=== PATIENT | female | born 1945 | race Caucasian/White ===

== ENCOUNTER 2021-12-17 23:00 | Inpatient (IN) ==
--- NOTE | 2021-12-17 23:13 | Emergency Department Note ---
Impression & Plan Acute respiratory failure with hypoxia, Acute hyponatremia ED Provider Note Name: RHIANNA JAUREGUI Age: 76 Sex: F Arrives Via: Ambulance Informant: Patient (poor historian secondary to acuity), EMS, Records ED Provider: Frankie Horta MD Chief Complaint: Shortness of breath Impression: As per impressions above Medical Decision Makin-year-old female arrives from [facility] for evaluation of acute respiratory distress. Patient unknown to this facility but has a history of hyperlipidemia, diabetes, hypertension, COPD, anxiety, depression, peripheral vascular disease. Patient had a lumbar back surgery 20 days ago in [facility]. She was in their facility for about 10 days dealing with some anemia and hyponatremia issues. She was transferred to [facility] a few days ago. Apparently patient had been doing well without any breathing issues until this evening. She awoke middle night in severe respiratory distress and anxious. EMS noted sats in the low 80s and some mild improvement with CPAP prior to arrival. On arrival patient is having significant respiratory distress on CPAP and switched to BiPAP. She seemed to do well for the next 10 to 15 minutes though became increasingly anxious unclear if just purely anxiety or due to pain. She appeared increasingly encephalopathic and worked up thrashing around the bed. She was given a small dose of IV fentanyl. This initially calmed her but respiratory distress worsened and thus intubation was clearly indicated. She was taken to trauma bay where she was intubated without significant difficulty. By this point labs returning with white count of 16 but Pro-Eh unremarkable. She has hyponatremia with sodium of 124 which is somewhat lower than the 129 she has been discharged from [facility]. Initial VBG while on BiPAP showed some mild acidosis and CO2 elevation. Initial chest x-ray with some diffuse congestion though no overt lobar infiltrates. With the recent surgery and acute respiratory failure CT PE was indicated. She was given Benadryl and Solu-Medrol prior to this given the chart review porting hives to IV contrast. CT PE study reveals no evidence of PE but does reveal bilateral groundglass opacities. [facility] respiratory panel was sent as COVID initially was negative here. These groundglass opacities may be pulmonary edema but will await [facility] as hemodynamically she is now stable on ventilator. With negative Pro-Eh and no fever, we will hold off on antibiotics at this time. I made the critical care team as well as hospitalist aware of the patient and plan for ICU admission. I suspect the primary cause of her respiratory distress must be acute pulmonary edema. There is no clear evidence that she is septic a nd I do not see a clear evidence of ACS at this time either. Prior Medical Record and Triage/Nursing Notes reviewed by Me Additional history obtained from chart, and EPIC records Differentials:Reactive airway disease, pneumonia, pneumothorax, COPD, CHF, infections, cardiac ischemia, pulmonary embolism, musculoskeletal, gastrointestinal, as well as other pathologies. Vital Signs: reviewed and remarkable for hypoxia on room air Interventions: Propofol, succinylcholine, etomidate, fentanyl Labs:Reviewed and remarkable for hyponatremia, leukocytosis, anemia Imagin view chest x-ray mild congestion bilaterally. 1 view chest x-ray postintubation reveals ET tube in place as well as OG tube in place mild increasing congestion. CT PE study as per stat read radiologist reveals diffuse groundglass opacities EKG:Per My Interpretation: Indication SHOB: Sinus Chilo 59 bpm, qtc 500 with LBBB. No Ectopy. No Ischemia. No recent EKG available for comparison Cardiac/Tele Monitoring: Cardiac Monitoring: An Order was placed for continuous cardiac monitoring. The monitor shows a rate of 60 with a normal sinus rhythm. Consults:Dr Elvira Ring Hospitalist. Eron [facility] Plan: Disposition:Hospitalization. Condition: Critical History of Present Illness:76-year-old female arrives for evaluation of shortness of breath. Patient has been at a local rehab facility following back surgery. She awoke this morning with severe difficulty breathing. EMS was contacted and she was found to be breathing in the 80s and sent to the ER for further evaluation. Patient is unable to talk due to being on CPAP however when asked if she having any chest pain she denies any currently. No medications prior to arrival. She nods yes, that she is feeling much improved on the CPAP. Patient has no reported history of DVT or PE. She is not on blood thinners. She denies any calf pain or leg swelling. No falls, trauma, injuries. ROS: Difficult to obtain due to patient being on CPAP and unable to talk right now. Past Medical History:Diabetes, COPD, hypertension, dyslipidemia, GERD, depression/anxiety, peripheral vascular disease, anemia Past Surgical History:Lumbar back surgery Family History:Adopted and unknown Social History:Retired, no smoking history, rare alcohol use, no drug use Home Medications:See Below Allergies:Amoxicillin, IV dye, lisinopril, sunflower seed Vitals:Blood Pressure: 117/75, Pulse 60, RR 19, T 36.7C, O2 100% on BiPAP Physical Exam: GENERAL: Patient is unwell/pale appearing and in moderate distress. Anxious ap pearing, uncomfortable. EYES: No scleral icterus, unremarkable pupils. ENT: Mucous membranes moist, no nasal congestion. NECK: No masses appreciated, nomeningismus, trachea is midline. RESPIRATORY: Diffuse crackles and decreased lung sounds throughout. Significant dyspnea/tachypnea on CPAP. CARDIOVASCULAR: Regular rate and rhythm.No murmurs, rubs, gallops appreciated. GASTROINTESTINAL: Abdomen soft, non-tender, no peritonitis.Bowel sounds positive.No masses appreciated. BACK: No midline tenderness, no CVA tenderness EXTREMITIES: Normal motion all extremities, no cyanosis, no edema. NEUROLOGIC: Awake, anxious, no acute motor or sensory deficits, no focal weakness, cranial nerves grossly intact. SKIN: No rash, no jaundice, no diaphoresis. Pale. PSYCH: Anxious GCS: 15 ED Course: Times/Reassessments: Patient initially improved on BiPAP but shortly thereafter rapidly became more anxious agitated and somewhat encephalopathic. Attempted small dose fentanyl without improvement. Taken to critical care bay where she was intubated without difficulty. Procedures: Endotracheal Intubation Indication: Respiratory Failure The patient was being bagged by respiratory with BVM. Suction, airway equi pment, RSI drugs, respiratory equipment, and appropriate personnel were prepared prior to the initiation of the procedure. A time out was taken. Induction was performed with etomidate and succinylcholine. After observing the clinical benefit of the medications, the airway was easily visualized utilizing a glide scope #3 blade. Initially a size 7.5 ET tube was attempted to be placed however was unable to be put through the cords and this another attempt with a 7.0 tube was made. The 7.0 size ETT tube was placed atraumatically to 21 cm using standard technique. The cuff inflated without signs of malfunction. There were bilateral breath sounds, positive colormetric change, no gastric sounds, a good capnography waveform, and post procedure pulse oximetry was 98%. Post intubation sedation and paralysis was administered using propofol. There were no complications. Critical Care: I have personally spent 45 minutes of critical care time in the direct management of this patient. Acute respiratory failure requiring intubation. This was a life/limb threatening event. This 45 minutes is in excess of all separately billable procedures. Frankie Horta MD Past Med/Surg History Medical History (Updated 12/18/21 @ 07:46 by Kenneth Felix MD) Anemia Anxiety and depression COPD (chronic obstructive pulmonary disease) Diabetes mellitus Diabetic neuropathy Diabetic retinopathy Dyslipidemia GERD (gastroesophageal reflux disease) Hypertension LBBB (left bundle branch block) Lumbar stenosis Paroxysmal atrial tachycardia PVD (peripheral vascular disease) Social History Smoking Status: Never smoker Hx Alcohol Use: Yes Alcohol type: beer Hx Substance Use: No Preferred Language: [place] Current Living Situation: Alone Feels Safe at Home: Yes Allergies Allergies Allergy/AdvReac Type Severity Reaction Status Date / Time amoxicillin Allergy Unknown HANDS Verified 07/19/16 06:36 ITCHING Iodinated Contrast Media Allergy Unknown HIVES Verified 12/17/21 23:50 lisinopril Allergy Unknown COUGH Verified 12/17/21 23:50 SUNFLOWER SEEDS Allergy Unknown TONGUE Uncoded 12/17/21 23:50 SWELLING Home Meds Home Medications Medication Instructions Recorded Confirmed acetaminophen 325 mg tablet 325 mg PO Q4 PRN 12/17/21 12/17/21 albuterol sulfate 90 mcg/actuation 2 puff INHALATION Q6 PRN 12/17/21 12/17/21 aerosol inhaler amiodarone 200 mg tablet 200 mg PO DAILY 12/17/21 12/17/21 baclofen 5 mg tablet 5 mg PO TID 12/17/21 12/17/21 cyanocobalamin (vitamin B-12) 2,000 mcg PO DAILY 12/17/21 12/17/21 1,000 mcg tablet (Vitamin B-12) docusate sodium 100 mg capsule 100 mg PO BID 12/17/21 12/17/21 (Colace) duloxetine 60 mg capsule,delayed 60 mg PO DAILY 12/17/21 12/17/21 release fluticasone furoate 200 1 ea INHALATION DAILY 12/17/21 12/17/21 mcg-vilanterol 25 mcg/dose inhalation powder (Breo Ellipta) gabapentin 800 mg tablet 800 mg PO TID 12/17/21 12/17/21 losartan 50 mg tablet 50 mg PO DAILY 12/17/21 12/17/21 metformin 500 mg tablet 500 mg PO QAM 12/17/21 12/17/21 metoprolol succinate 25 mg 25 mg PO DAILY 12/17/21 12/17/21 tablet,extended release 24 hr nitroglycerin 0.4 mg sublingual 0.4 mg SUBLINGUAL UD PRN 12/17/21 12/17/21 tablet (Nitrostat) oxycodone 10 mg tablet 10 mg PO Q6H PRN 12/17/21 12/17/21 pantoprazole 40 mg tablet,delayed 40 mg PO DAILYBB 12/17/21 12/17/21 release pravastatin 80 mg tablet 80 mg PO HS 12/17/21 12/17/21 Results & Data (ED) Vital Signs Vital Signs - 24 hr 12/18/21 01:30 12/18/21 02:00 Pulse Rate [Finger] 57 L 60 Respiratory Rate 20 20 Blood Pressure [Right Arm] 110/52 L 135/61 Blood Pressure Mean [Right Arm] 71 85 Pulse Oximetry 100 100 Oxygen Delivery Method Mechanical Vent Mechanical Vent End Tidal CO2 (18-54mmHg) 42 Laboratory Data Result diagrams: 12/18/21 09:27 12/18/21 21:18 Lab Results 12/17/21 12/17/21 12/17/21 Range/Units 23:14 23:14 23:14 WBC 16.43 H (4.8-10.8) K/uL RBC 3.24 L (4.2-5.4) M/uL Hgb 9.6 L (12.0-16.0) g/dL Hct 29.0 L (37-47) % MCV 89.5 (80-100) fL MCH 29.6 (25-34) pg MCHC 33.1 (32-36) g/dL RDW Std Deviation 43.8 (36.4-46.3) fL RDW Coeff of Be 13.5 (11.5-14.5) % Plt Count 548 H (130-400) K/uL MPV 9.5 (7.4-10.4) fL Immature Gran % (Auto) 0.9 % Neut % (Auto) 87.5 % Lymph % (Auto) 5.1 % Adams % (Auto) 5.5 % Eos % (Auto) 0.9 % Baso % (Auto) 0.1 % Neut # (Auto) 14.40 H (1.4-6.5) K/uL Lymph # (Auto) 0.84 L (1.2-3.4) K/uL Adams # (Auto) 0.90 H (0.11-0.59) K/uL Eos # (Auto) 0.14 (0-0.5) K/uL Baso # (Auto) 0.01 (0-0.2) K/uL Immature Gran # (Auto) 0.14 H (0.00-0.02) K/uL APTT (21.0-31.0) Seconds PTT Ratio ABG pH (7.35-7.45) ABG pCO2 (35-46) mmHg ABG pO2 (80-95) mmHg ABG HCO3 (19-24) mmol/L ABG O2 Saturation (90-95) % ABG Base Excess (-9-1.8) mEq/L Jimmy Test (Pos) VBG pH (7.36-7.41) VBG pCO2 (38-50) mmHg VBG pO2 mmHg VBG HCO3 mmol/L VBG O2 Saturation % VBG Base Excess mEq/L Oxygen Given Sodium 124 L (136-145) mmol/L Potassium 3.7 (3.5-5.1) mmol/L Chloride 85 L (98-107) mmol/L Carbon Dioxide 31 (21-32) mmol/L Anion Gap 8 (3-11) BUN 12 (6-23) mg/dl Creatinine 0.82 (0.6-1.2) mg/dl Est Cr Clr Drug Dosing Not Reportable Est GFR ( Amer) 81.1 ml/min Est GFR (Non-Af Amer) 70.0 ml/min BUN/Creatinine Ratio 14.6 (10-20) Glucose 154 H (70-99(Fasting)) mg/dl Osmolality (280-300) mOsm/kg Lactate 1.8 (0.4-2.0) mmol/L Calcium 8.7 (8.5-10.1) mg/dl Magnesium 1.7 (1.7-2.4) mg/dl Total Bilirubin 0.4 (0.2-1.0) mg/dl Direct Bilirubin 0.1 (0-0.2) mg/dl AST 23 (13-39) U/L ALT 13 (7-52) U/L Alkaline Phosphatase 68 (34-104) U/L Troponin I High Sens 33.7 H (0-14) pg/ml B-Natriuretic Peptide (0-100) pg/ml Total Protein 6.0 (6.0-8.3) gm/dl Albumin 3.1 L (3.4-5.0) gm/dl Lipase 54 (11-82) U/L Procalcitonin (0-0.5) ng/ml TSH (0.300-4.500) uIu/ml Urine Color Urine Appearance (Clear) Urine pH (4.5-7.5) Ur Specific [place] (1.000-1.030) Urine Protein (Negative) Urine Glucose (UA) (Negative) Urine Ketones (Negative) Urine Blood (Negative) Urine Nitrite (Negative) Urine Bilirubin (Negative) Urine Urobilinogen (Negative) Ur Leukocyte Esterase (Negative) Adenovirus (PCR) (NotDetected) B. pertussis DNA (PCR) (NotDetected) B.parapertussis DNA PCR (NotDetected) C. pneumoniae DNA (PCR) (NotDetected) Coronavirus OC43 (PCR) (NotDetected) Coronavirus HKU1 (PCR) (NotDetected) Coronavirus 229E (PCR) (NotDetected) SARS-CoV-2 (PCR) (NotDetected) Coronavirus NL63 (PCR) (NotDetected) Human Metapneumovir PCR (NotDetected) Influenza Type A (PCR) (NotDetected) Influenza Type B (PCR) (NotDetected) M. pneumoniae (PCR) (NotDetected) Parainfluenza 1 (PCR) (NotDetected) Parainfluenza 2 (PCR) (NotDetected) Parainfluenza 3 (PCR) (NotDetected) Parainfluenza 4 (PCR) (NotDetected) RSV (PCR) (NotDetected) Entero/Rhino (PCR) (NotDetected) SARS-CoV-2, RNA, NAAT (NEGATIVE) Blood Type Antibody Screen 12/17/21 12/17/21 12/17/21 Range/Units 23:14 23:14 23:14 WBC (4.8-10.8) K/uL RBC (4.2-5.4) M/uL Hgb (12.0-16.0) g/dL Hct (37-47) % MCV (80-100) fL MCH (25-34) pg MCHC (32-36) g/dL RDW Std Deviation (36.4-46.3) fL RDW Coeff of Be (11.5-14.5) % Plt Count (130-400) K/uL MPV (7.4-10.4) fL Immature Gran % (Auto) % Neut % (Auto) % Lymph % (Auto) % Adams % (Auto) % Eos % (Auto) % Baso % (Auto) % Neut # (Auto) (1.4-6.5) K/uL Lymph # (Auto) (1.2-3.4) K/uL Adams # (Auto) (0.11-0.59) K/uL Eos # (Auto) (0-0.5) K/uL Baso # (Auto) (0-0.2) K/uL Immature Gran # (Auto) (0.00-0.02) K/uL APTT (21.0-31.0) Seconds PTT Ratio ABG pH (7.35-7.45) ABG pCO2 (35-46) mmHg ABG pO2 (80-95) mmHg ABG HCO3 (19-24) mmol/L ABG O2 Saturation (90-95) % ABG Base Excess (-9-1.8) mEq/L Jimmy Test (Pos) VBG pH (7.36-7.41) VBG pCO2 (38-50) mmHg VBG pO2 mmHg VBG HCO3 mmol/L VBG O2 Saturation % VBG Base Excess mEq/L Oxygen Given Sodium (136-145) mmol/L Potassium (3.5-5.1) mmol/L Chloride (98-107) mmol/L Carbon Dioxide (21-32) mmol/L Anion Gap (3-11) BUN (6-23) mg/dl Creatinine (0.6-1.2) mg/dl Est Cr Clr Drug Dosing Est GFR ( Amer) ml/min Est GFR (Non-Af Amer) ml/min BUN/Creatinine Ratio (10-20) Glucose (70-99(Fasting)) mg/dl Osmolality 260 L (280-300) mOsm/kg Lactate (0.4-2.0) mmol/L Calcium (8.5-10.1) mg/dl Magnesium (1.7-2.4) mg/dl Total Bilirubin (0.2-1.0) mg/dl Direct Bilirubin (0-0.2) mg/dl AST (13-39) U/L ALT (7-52) U/L Alkaline Phosphatase (34-104) U/L Troponin I High Sens (0-14) pg/ml B-Natriuretic Peptide (0-100) pg/ml Total Protein (6.0-8.3) gm/dl Albumin (3.4-5.0) gm/dl Lipase (11-82) U/L Procalcitonin < 0.05 (0-0.5) ng/ml TSH 1.390 (0.300-4.500) uIu/ml Urine Color Urine Appearance (Clear) Urine pH (4.5-7.5) Ur Specific [place] (1.000-1.030) Urine Protein (Negative) Urine Glucose (UA) (Negative) Urine Ketones (Negative) Urine Blood (Negative) Urine Nitrite (Negative) Urine Bilirubin (Negative) Urine Urobilinogen (Negative) Ur Leukocyte Esterase (Negative) Adenovirus (PCR) (NotDetected) B. pertussis DNA (PCR) (NotDetected) B.parapertussis DNA PCR (NotDetected) C. pneumoniae DNA (PCR) (NotDetected) Coronavirus OC43 (PCR) (NotDetected) Coronavirus HKU1 (PCR) (NotDetected) Coronavirus 229E (PCR) (NotDetected) SARS-CoV-2 (PCR) (NotDetected) Coronavirus NL63 (PCR) (NotDetected) Human Metapneumovir PCR (NotDetected) Influenza Type A (PCR) (NotDetected) Influenza Type B (PCR) (NotDetected) M. pneumoniae (PCR) (NotDetected) Parainfluenza 1 (PCR) (NotDetected) Parainfluenza 2 (PCR) (NotDetected) Parainfluenza 3 (PCR) (NotDetected) Parainfluenza 4 (PCR) (NotDetected) RSV (PCR) (NotDetected) Entero/Rhino (PCR) (NotDetected) SARS-CoV-2, RNA, NAAT (NEGATIVE) Blood Type Antibody Screen 12/17/21 12/17/21 12/17/21 Range/Units 23:14 23:19 23:19 WBC (4.8-10.8) K/uL RBC (4.2-5.4) M/uL Hgb (12.0-16.0) g/dL Hct (37-47) % MCV (80-100) fL MCH (25-34) pg MCHC (32-36) g/dL RDW Std Deviation (36.4-46.3) fL RDW Coeff of Be (11.5-14.5) % Plt Count (130-400) K/uL MPV (7.4-10.4) fL Immature Gran % (Auto) % Neut % (Auto) % Lymph % (Auto) % Adams % (Auto) % Eos % (Auto) % Baso % (Auto) % Neut # (Auto) (1.4-6.5) K/uL Lymph # (Auto) (1.2-3.4) K/uL Adams # (Auto) (0.11-0.59) K/uL Eos # (Auto) (0-0.5) K/uL Baso # (Auto) (0-0.2) K/uL Immature Gran # (Auto) (0.00-0.02) K/uL APTT 27.8 (21.0-31.0) Seconds PTT Ratio 1.0 ABG pH (7.35-7.45) ABG pCO2 (35-46) mmHg ABG pO2 (80-95) mmHg ABG HCO3 (19-24) mmol/L ABG O2 Saturation (90-95) % ABG Base Excess (-9-1.8) mEq/L Jimmy Test (Pos) VBG pH (7.36-7.41) VBG pCO2 (38-50) mmHg VBG pO2 mmHg VBG HCO3 mmol/L VBG O2 Saturation % VBG Base Excess mEq/L Oxygen Given Sodium (136-145) mmol/L Potassium (3.5-5.1) mmol/L Chloride (98-107) mmol/L Carbon Dioxide (21-32) mmol/L Anion Gap (3-11) BUN (6-23) mg/dl Creatinine (0.6-1.2) mg/dl Est Cr Clr Drug Dosing Est GFR ( Amer) ml/min Est GFR (Non-Af Amer) ml/min BUN/Creatinine Ratio (10-20) Glucose (70-99(Fasting)) mg/dl Osmolality (280-300) mOsm/kg Lactate (0.4-2.0) mmol/L Calcium (8.5-10.1) mg/dl Magnesium (1.7-2.4) mg/dl Total Bilirubin (0.2-1.0) mg/dl Direct Bilirubin (0-0.2) mg/dl AST (13-39) U/L ALT (7-52) U/L Alkaline Phosphatase (34-104) U/L Troponin I High Sens (0-14) pg/ml B-Natriuretic Peptide 116 H (0-100) pg/ml Total Protein (6.0-8.3) gm/dl Albumin (3.4-5.0) gm/dl Lipase (11-82) U/L Procalcitonin (0-0.5) ng/ml TSH (0.300-4.500) uIu/ml Urine Color Urine Appearance (Clear) Urine pH (4.5-7.5) Ur Specific [place] (1.000-1.030) Urine Protein (Negative) Urine Glucose (UA) (Negative) Urine Ketones (Negative) Urine Blood (Negative) Urine Nitrite (Negative) Urine Bilirubin (Negative) Urine Urobilinogen (Negative) Ur Leukocyte Esterase (Negative) Adenovirus (PCR) (NotDetected) B. pertussis DNA (PCR) (NotDetected) B.parapertussis DNA PCR (NotDetected) C. pneumoniae DNA (PCR) (NotDetected) Coronavirus OC43 (PCR) (NotDetected) Coronavirus HKU1 (PCR) (NotDetected) Coronavirus 229E (PCR) (NotDetected) SARS-CoV-2 (PCR) (NotDetected) Coronavirus NL63 (PCR) (NotDetected) Human Metapneumovir PCR (NotDetected) Influenza Type A (PCR) (NotDetected) Influenza Type B (PCR) (NotDetected) M. pneumoniae (PCR) (NotDetected) Parainfluenza 1 (PCR) (NotDetected) Parainfluenza 2 (PCR) (NotDetected) Parainfluenza 3 (PCR) (NotDetected) Parainfluenza 4 (PCR) (NotDetected) RSV (PCR) (NotDetected) Entero/Rhino (PCR) (NotDetected) SARS-CoV-2, RNA, NAAT (NEGATIVE) Blood Type O Positive Antibody Screen NEGATIVE 12/17/21 12/17/21 12/17/21 Range/Units 23:19 23:35 23:35 WBC (4.8-10.8) K/uL RBC (4.2-5.4) M/uL Hgb (12.0-16.0) g/dL Hct (37-47) % MCV (80-100) fL MCH (25-34) pg MCHC (32-36) g/dL RDW Std Deviation (36.4-46.3) fL RDW Coeff of Be (11.5-14.5) % Plt Count (130-400) K/uL MPV (7.4-10.4) fL Immature Gran % (Auto) % Neut % (Auto) % Lymph % (Auto) % Adams % (Auto) % Eos % (Auto) % Baso % (Auto) % Neut # (Auto) (1.4-6.5) K/uL Lymph # (Auto) (1.2-3.4) K/uL Adams # (Auto) (0.11-0.59) K/uL Eos # (Auto) (0-0.5) K/uL Baso # (Auto) (0-0.2) K/uL Immature Gran # (Auto) (0.00-0.02) K/uL APTT (21.0-31.0) Seconds PTT Ratio ABG pH (7.35-7.45) ABG pCO2 (35-46) mmHg ABG pO2 (80-95) mmHg ABG HCO3 (19-24) mmol/L ABG O2 Saturation (90-95) % ABG Base Excess (-9-1.8) mEq/L Jimmy Test (Pos) VBG pH 7.32 L (7.36-7.41) VBG pCO2 64 H (38-50) mmHg VBG pO2 23 mmHg VBG HCO3 32 mmol/L VBG O2 Saturation < 60.0 % VBG Base Excess 4.8 mEq/L Oxygen Given Sodium (136-145) mmol/L Potassium (3.5-5.1) mmol/L Chloride (98-107) mmol/L Carbon Dioxide (21-32) mmol/L Anion Gap (3-11) BUN (6-23) mg/dl Creatinine (0.6-1.2) mg/dl Est Cr Clr Drug Dosing Est GFR ( Amer) ml/min Est GFR (Non-Af Amer) ml/min BUN/Creatinine Ratio (10-20) Glucose (70-99(Fasting)) mg/dl Osmolality (280-300) mOsm/kg Lactate (0.4-2.0) mmol/L Calcium (8.5-10.1) mg/dl Magnesium (1.7-2.4) mg/dl Total Bilirubin (0.2-1.0) mg/dl Direct Bilirubin (0-0.2) mg/dl AST (13-39) U/L ALT (7-52) U/L Alkaline Phosphatase (34-104) U/L Troponin I High Sens (0-14) pg/ml B-Natriuretic Peptide (0-100) pg/ml Total Protein (6.0-8.3) gm/dl Albumin (3.4-5.0) gm/dl Lipase (11-82) U/L Procalcitonin (0-0.5) ng/ml TSH (0.300-4.500) uIu/ml Urine Color Yellow Urine Appearance Clear (Clear) Urine pH 5.5 (4.5-7.5) Ur Specific [place] 1.020 (1.000-1.030) Urine Protein Negative (Negative) Urine Glucose (UA) Negative (Negative) Urine Ketones Negative (Negative) Urine Blood 2+ H (Negative) Urine Nitrite Negative (Negative) Urine Bilirubin Negative (Negative) Urine Urobilinogen Negative (Negative) Ur Leukocyte Esterase Negative (Negative) Adenovirus (PCR) (NotDetected) B. pertussis DNA (PCR) (NotDetected) B.parapertussis DNA PCR (NotDetected) C. pneumoniae DNA (PCR) (NotDetected) Coronavirus OC43 (PCR) (NotDetected) Coronavirus HKU1 (PCR) (NotDetected) Coronavirus 229E (PCR) (NotDetected) SARS-CoV-2 (PCR) (NotDetected) Coronavirus NL63 (PCR) (NotDetected) Human Metapneumovir PCR (NotDetected) Influenza Type A (PCR) (NotDetected) Influenza Type B (PCR) (NotDetected) M. pneumoniae (PCR) (NotDetected) Parainfluenza 1 (PCR) (NotDetected) Parainfluenza 2 (PCR) (NotDetected) Parainfluenza 3 (PCR) (NotDetected) Parainfluenza 4 (PCR) (NotDetected) RSV (PCR) (NotDetected) Entero/Rhino (PCR) (NotDetected) SARS-CoV-2, RNA, NAAT NEGATIVE (NEGATIVE) Blood Type Antibody Screen 12/18/21 12/18/21 Range/Units 01:10 01:55 WBC (4.8-10.8) K/uL RBC (4.2-5.4) M/uL Hgb (12.0-16.0) g/dL Hct (37-47) % MCV (80-100) fL MCH (25-34) pg MCHC (32-36) g/dL RDW Std Deviation (36.4-46.3) fL RDW Coeff of Be (11.5-14.5) % Plt Count (130-400) K/uL MPV (7.4-10.4) fL Immature Gran % (Auto) % Neut % (Auto) % Lymph % (Auto) % Adams % (Auto) % Eos % (Auto) % Baso % (Auto) % Neut # (Auto) (1.4-6.5) K/uL Lymph # (Auto) (1.2-3.4) K/uL Adams # (Auto) (0.11-0.59) K/uL Eos # (Auto) (0-0.5) K/uL Baso # (Auto) (0-0.2) K/uL Immature Gran # (Auto) (0.00-0.02) K/uL APTT (21.0-31.0) Seconds PTT Ratio ABG pH 7.36 (7.35-7.45) ABG pCO2 50 H (35-46) mmHg ABG pO2 163 H (80-95) mmHg ABG HCO3 27 H (19-24) mmol/L ABG O2 Saturation 99.2 H (90-95) % ABG Base Excess 1.2 (-9-1.8) mEq/L Jimmy Test Pos (Pos) VBG pH (7.36-7.41) VBG pCO2 (38-50) mmHg VBG pO2 mmHg VBG HCO3 mmol/L VBG O2 Saturation % VBG Base Excess mEq/L Oxygen Given 60% Sodium (136-145) mmol/L Potassium (3.5-5.1) mmol/L Chloride (98-107) mmol/L Carbon Dioxide (21-32) mmol/L Anion Gap (3-11) BUN (6-23) mg/dl Creatinine (0.6-1.2) mg/dl Est Cr Clr Drug Dosing Est GFR ( Amer) ml/min Est GFR (Non-Af Amer) ml/min BUN/Creatinine Ratio (10-20) Glucose (70-99(Fasting)) mg/dl Osmolality (280-300) mOsm/kg Lactate (0.4-2.0) mmol/L Calcium (8.5-10.1) mg/dl Magnesium (1.7-2.4) mg/dl Total Bilirubin (0.2-1.0) mg/dl Direct Bilirubin (0-0.2) mg/dl AST (13-39) U/L ALT (7-52) U/L Alkaline Phosphatase (34-104) U/L Troponin I High Sens (0-14) pg/ml B-Natriuretic Peptide (0-100) pg/ml Total Protein (6.0-8.3) gm/dl Albumin (3.4-5.0) gm/dl Lipase (11-82) U/L Procalcitonin (0-0.5) ng/ml TSH (0.300-4.500) uIu/ml Urine Color Urine Appearance (Clear) Urine pH (4.5-7.5) Ur Specific [place] (1.000-1.030) Urine Protein (Negative) Urine Glucose (UA) (Negative) Urine Ketones (Negative) Urine Blood (Negative) Urine Nitrite (Negative) Urine Bilirubin (Negative) Urine Urobilinogen (Negative) Ur Leukocyte Esterase (Negative) Adenovirus (PCR) Not Detected (NotDetected) B. pertussis DNA (PCR) Not Detected (NotDetected) B.parapertussis DNA PCR Not Detected (NotDetected) C. pneumoniae DNA (PCR) Not Detected (NotDetected) Coronavirus OC43 (PCR) Not Detected (NotDetected) Coronavirus HKU1 (PCR) Not Detected (NotDetected) Coronavirus 229E (PCR) Not Detected (NotDetected) SARS-CoV-2 (PCR) Not Detected (NotDetected) Coronavirus NL63 (PCR) Not Detected (NotDetected) Human Metapneumovir PCR Not Detected (NotDetected) Influenza Type A (PCR) Not Detected (NotDetected) Influenza Type B (PCR) Not Detected (NotDetected) M. pneumoniae (PCR) Not Detected (NotDetected) Parainfluenza 1 (PCR) Not Detected (NotDetected) Parainfluenza 2 (PCR) Not Detected (NotDetected) Parainfluenza 3 (PCR) Not Detected (NotDetected) Parainfluenza 4 (PCR) Not Detected (NotDetected) RSV (PCR) Not Detected (NotDetected) Entero/Rhino (PCR) Not Detected (NotDetected) SARS-CoV-2, RNA, NAAT (NEGATIVE) Blood Type Antibody Screen Administered Medications Albuterol (Albut/Ipratrop 3mg/0.5mg Neb 3 Ml Vial) 3 ml NEB QIDR [facility]; Protocol Stop: 01/17/22 06:59 Last Admin: 12/18/21 11:54 Dose: Not Given Documented by: [id number] Admin: 12/18/21 07:55 Dose: 3 ml Documented by: [id number] Enoxaparin Sodium (Enoxaparin Inj 40 Mg/0.4 Ml Syr) [facility] Stop: 01/17/22 13:59 Last Admin: 12/18/21 14:38 Dose: 40 mg Documented by: [id number] Doxycycline Hyclate 100 mg/ (Dextrose) 110 mls @ 50 mls/hr IV Q12H [facility] Stop: 12/25/21 13:59 Last Infusion: 12/18/21 16:51 Dose: 0 mls/hr Documented by: [id number] Admin: 12/18/21 14:39 Dose: 50 mls/hr Documented by: [id number] Acetaminophen (Ofirmev) 1,000 mg in 100 mls @ 400 mls/hr IV Q8H PRN; Protocol PRN Reason: pain or fever Stop: 12/21/21 04:29 Last Infusion: 12/18/21 14:54 Dose: 0 mls/hr Documented by: [id number] Admin: 12/18/21 14:39 Dose: 400 mls/hr Documented by: [id number] Infusion: 12/18/21 08:48 Dose: 0 mls/hr Documented by: [id number] Admin: 12/18/21 08:33 Dose: 400 mls/hr Documented by: [id number] Cefepime HCl 2,000 mg/ Syringe 20 mls @ 5 mls/min IV Q12H [facility]; Protocol Stop: 12/25/21 15:59 Last Admin: 12/18/21 16:22 Dose: 5 mls/min Documented by: [id number] Insulin Aspart (Insulin Aspart Per Unit) 0 units SC ACHS [facility] Stop: 01/17/22 20:59 Last Admin: 12/18/21 20:59 Dose: Not Given Documented by: [id number] Admin: 12/18/21 17:18 Dose: 2 units Documented by: [id number] Cosigned by: [id number] Metoprolol Tartrate (Metoprolol Tartrate 25 Mg Tab) 25 mg PO BID [facility] Stop: 01/17/22 20:59 Last Admin: 12/18/21 20:42 Dose: 25 mg Documented by: [id number] Oxycodone HCl (Oxycodone Hcl Ir 5 Mg Tab (Immediate Release)) 5 mg PO Q6H PRN PRN Reason: Pain Stop: 01/01/22 20:43 Last Admin: 12/18/21 21:17 Dose: 5 mg Documented by: [id number] Pravastatin Sodium (Pravastatin Sod 40 Mg Tab) 80 mg NG HS [facility] Stop: 01/17/22 20:59 Last Admin: 12/18/21 20:42 Dose: 80 mg Documented by: [id number] Discontinued Medications Albuterol (Albut/Ipratrop 3mg/0.5mg Neb 3 Ml Vial) 3 ml NEB NOW STA; Protocol Stop: 12/18/21 02:21 Last Admin: 12/18/21 02:33 Dose: 3 ml Documented by: [id number] Amiodarone HCl (Amiodarone 200 Mg Tab) 200 mg PO DAILY [facility] Stop: 01/17/22 08:59 Last Admin: 12/18/21 08:17 Dose: 200 mg Documented by: [id number] Diphenhydramine HCl (Diphenhydramine 50 Mg/Ml Vial) 50 mg IV NOW STA Stop: 12/18/21 00:11 Last Admin: 12/18/21 00:34 Dose: 50 mg Documented by: [id number] Etomidate (Etomidate 2 Mg/Ml 20 Ml Vial) 20 mg IV ONCE ONE Stop: 12/18/21 00:18 Last Admin: 12/18/21 00:06 Dose: 20 mg Documented by: [id number] Fentanyl Citrate (Fentanyl Citrate 100 Mcg/2 Ml Vial) 50 mcg IV NOW STA Stop: 12/17/21 23:39 Last Admin: 12/17/21 23:49 Dose: 50 mcg Documented by: [id number] Furosemide (Furosemide 40 Mg/4 Ml Vial) 40 mg IV ONE ONE Stop: 12/18/21 04:33 Last Admin: 12/18/21 05:36 Dose: 40 mg Documented by: [id number] Propofol (Diprivan) 1,000 mg in 100 mls @ 13.392 mls/hr IV .Q7H29M [facility]; Protocol Stop: 12/21/21 00:14 Last Titration: 12/18/21 12:50 Dose: 0 mcg/kg/min, 0 mls/hr Documented by: [id number] Titration: 12/18/21 07:08 Dose: 30 mcg/kg/min, 13.4 mls/hr Documented by: [id number] Cosigned by: [id number] Titration: 12/18/21 05:00 Dose: 30 mcg/kg/min, 13.4 mls/hr Documented by: [id number] Titration: 12/18/21 03:40 Dose: 25 mcg/kg/min, 11.2 mls/hr Documented by: [id number] Titration: 12/18/21 01:33 Dose: 20 mcg/kg/min, 8.9 mls/hr Documented by: [id number] Titration: 12/18/21 01:20 Dose: 25 mcg/kg/min, 11.2 mls/hr Documented by: [id number] Admin: 12/18/21 00:28 Dose: 30 mcg/kg/min, 13.4 mls/hr Documented by: [id number] Cosigned by: [id number] Titration: 12/18/21 00:28 Dose: 25 mcg/kg/min, 11.2 mls/hr Documented by: [id number] Cosigned by: [id number] Admin: 12/18/21 00:25 Dose: 25 mcg/kg/min, 11.2 mls/hr Documented by: [id number] Cosigned by: [id number] Titration: 12/18/21 00:25 Dose: 20 mcg/kg/min, 8.9 mls/hr Documented by: [id number] Cosigned by: [id number] Admin: 12/18/21 00:22 Dose: 20 mcg/kg/min, 8.9 mls/hr Documented by: [id number] Cosigned by: [id number] Doxycycline Hyclate 100 mg/ (Dextrose) 110 mls @ 50 mls/hr IV NOW STA Stop: 12/18/21 04:29 Last Infusion: 12/18/21 06:50 Dose: 0 mls/hr Documented by: [id number] Admin: 12/18/21 04:15 Dose: 50 mls/hr Documented by: [id number] Methylprednisolone 40 mg/ (Syringe) 0.64 mls @ 1.5 mls/min IV NOW STA Stop: 12/18/21 02:16 Last Admin: 12/18/21 07:30 Dose: Not Given Documented by: [id number] Magnesium Sulfate/Dextrose (Magnesium Sulfate / D5w) 1 gm in 100 mls @ 50 m ls/hr IV Q2H [facility] Stop: 12/18/21 06:29 Last Infusion: 12/18/21 07:37 Dose: 0 mls/hr Documented by: [id number] Admin: 12/18/21 05:37 Dose: 50 mls/hr Documented by: [id number] Infusion: 12/18/21 05:37 Dose: 50 mls/hr Documented by: [id number] Admin: 12/18/21 04:05 Dose: 50 mls/hr Documented by: [id number] Sodium Chloride (Nss) 500 mls @ 50 mls/hr IV .Q10H ONE Stop: 12/18/21 12:27 Last Admin: 12/18/21 07:30 Dose: Not Given Documented by: [id number] Pantoprazole Sodium 40 mg/ (Syringe) 10 mls @ 5 mls/min IV DAILY@1100 [facility] Stop: 01/17/22 10:59 Last Admin: 12/18/21 10:52 Dose: 5 mls/min Documented by: [id number] Cefepime HCl 2,000 mg/ Syringe 20 mls @ 5 mls/min IV Q8H [facility]; Protocol Stop: 12/25/21 03:59 Last Admin: 12/18/21 04:06 Dose: 5 mls/min Documented by: [id number] Sodium Chloride (Hypertonic Saline 3%) 500 mls @ 50 mls/hr IV .Q10H [facility]; Protocol Stop: 12/20/21 04:44 Last Infusion: 12/18/21 14:00 Dose: 0 mls/hr Documented by: [id number] Cosigned by: [id number] Admin: 12/18/21 05:36 Dose: 50 mls/hr Documented by: [id number] Cosigned by: [id number] Magnesium Sulfate/Dextrose (Magnesium Sulfate / D5w) 1 gm in 100 mls @ 50 mls/hr IV Q2H [facility] Stop: 12/18/21 15:29 Last Infusion: 12/18/21 16:37 Dose: 0 mls/hr Documented by: [id number] Admin: 12/18/21 14:37 Dose: 50 mls/hr Documented by: [id number] Infusion: 12/18/21 13:36 Dose: 50 mls/hr Documented by: [id number] Admin: 12/18/21 11:36 Dose: 50 mls/hr Documented by: [id number] Insulin Aspart (Insulin Aspart Per Unit) 0 units SC ACHS [facility] Stop: 01/17/22 03:28 Last Admin: 12/18/21 08:41 Dose: Not Given Documented by: [id number] Admin: 12/18/21 04:24 Dose: 2 units Documented by: [id number] Cosigned by: [id number] Insulin Aspart (Insulin Aspart Per Unit) 0 units SC Q6 [facility] Stop: 01/17/22 11:59 Last Admin: 12/18/21 11:52 Dose: 3 units Documented by: [id number] Cosigned by: [id number] Insulin Aspart (Insulin Aspart Per Unit) Confirm Administered Dose 1 units .ROUTE .STK-MED ONE Stop: 12/18/21 17:18 Last Admin: 12/18/21 17:21 Dose: Not Given Documented by: [id number] Insulin Aspart (Insulin Aspart Per Unit) 0 units SC NOW ONE Stop: 12/18/21 17:31 Last Admin: 12/18/21 17:38 Dose: Not Given Documented by: [id number] Insulin Glargine (Insulin Glargine Solostar 100 Units/Ml 3 Ml Pen) 5 units SC NOW STA Stop: 12/18/21 02:27 Last Admin: 12/18/21 04:25 Dose: 5 units Documented by: [id number] Cosigned by: [id number] Ioversol (Optiray 320 125ml) 120 ml IV ONCE ONE Stop: 12/18/21 00:55 Last Admin: 12/18/21 00:52 Dose: 120 ml Documented by: [id number] Methylprednisolone (Methylprednisolone 125 Mg/2 Ml Vial) 125 mg IV NOW STA Stop: 12/18/21 00:11 Last Admin: 12/18/21 00:34 Dose: 125 mg Documented by: [id number] Metoprolol Tartrate (Metoprolol Tartrate 1 Mg/Ml Vial) 2.5 mg IV Q6 [facility] Stop: 01/17/22 05:59 Last Admin: 12/18/21 17:14 Dose: Not Given Documented by: [id number] Admin: 12/18/21 11:36 Dose: Not Given Documented by: [id number] Admin: 12/18/21 06:38 Dose: Not Given Documented by: [id number] Miscellaneous (Rapid Sequence Induction Bag) Confirm Administered Dose 1 ea .ROUTE .STK-MED ONE Stop: 12/18/21 00:00 Last Admin: 12/18/21 00:06 Dose: 1 ea Documented by: [id number] Miscellaneous (Stat Iv Infusion Titration Per Protocol) 1 ea N/A NOW Stop: 12/18/21 00:11 Last Admin: 12/18/21 01:01 Dose: Not Given Documented by: [id number] Potassium Chloride (Potassium Chloride 20 Meq/15 Ml Udc) 40 meq PO NOW STA Stop: 12/18/21 11:28 Last Admin: 12/18/21 11:35 Dose: 40 meq Documented by: [id number] Propofol (Propofol Bolus From Bag) 20 mg IV Q5M PRN PRN Reason: Sedation Stop: 12/21/21 00:09 Last Admin: 12/18/21 06:14 Dose: 20 mg Documented by: [id number] Cosigned by: [id number] Succinylcholine Chloride (Succinylcholine Chloride 20 Mg/Ml 10 Ml Vial) 150 mg IV ONCE ONE Stop: 12/18/21 00:18 Last Admin: 12/18/21 00:07 Dose: 150 mg Documented by: [id number] Discharge Plan Visit Data Chief Complaint: Shortness of Breath/Dyspnea ED Provider: Frankie Horta Discharge Problem: Acute respiratory failure with hypoxia, Acute hyponatremia Patient Disposition: Admitted As Inpatient Discharge Instructions Interventions: ED Discharge Assessment Last Done: 12/18/21 03:00
[2021-12-17 23:35] LABS: Hemoglobin 9.6 g/dL (12.0-16.0); Mean Corpuscular Hemoglobin 29.6 pg (25-34); Mean Corpuscular Hgb Conc 33.1 g/dL (32-36); Mean Corpuscular Volume 89.5 fL (80-100); Mean Platelet Volume 9.5 fL (7.4-10.4); Platelet Count 548 K/uL (130-400); RDW Coefficient of Variation 13.5 % (11.5-14.5); RDW Standard Deviation 43.8 fL (36.4-46.3); Red Blood Count 3.24 M/uL (4.2-5.4); White Blood Count 16.43 K/uL (4.8-10.8)
[2021-12-17 23:35] LABS: Base Excess VBG 4.8 mEq/L; HCO3 VBG 32 mmol/L; PCO2 VBG 64 mmHg (38-50); PO2 VBG 23 mmHg; pH VBG 7.32 (7.36-7.41)
[2021-12-17 23:37] LABS: Oxygen Saturation VBG < 60.0 %
[2021-12-17] MEDS ORDERED: fentaNYL citrate 100 MCG/2 ML VIAL IV STA (23:38)
[2021-12-17 23:51] LABS: Appearance Urine Clear (Clear); Bilirubin Urine Negative (Negative); Blood Urine 2+ (Negative); Color Urine Yellow; Glucose Urine UA Negative (Negative); Ketones Urine Negative (Negative); Leukocyte Esterase Urine Negative (Negative); Nitrite Urine Negative (Negative); Protein Urine Negative (Negative); Urobilinogen Urine Negative (Negative); pH Urine 5.5 (4.5-7.5)
[2021-12-17 23:54] LABS: Basophils # (auto) 0.01 K/uL (0-0.2); Basophils % (auto) 0.1 %; Eosinophils # (auto) 0.14 K/uL (0-0.5); Eosinophils % (auto) 0.9 %; Immature Granulocytes # (auto) 0.14 K/uL (0.00-0.02); Immature Granulocytes % (auto) 0.9 %; Lymphocytes # (auto) 0.84 K/uL (1.2-3.4); Lymphocytes % (auto) 5.1 %; Monocytes % (auto) 5.5 %; Neutrophils % (auto) 87.5 %
[2021-12-17] MEDS ORDERED: RAPID SEQUENCE INDUCTION BAG ONE (23:59)
[2021-12-18 00:02] LABS: Troponin I High Sensitivity 33.7 pg/ml (0-14)
[2021-12-18] MEDS ORDERED: PROPOFOL BOLUS FROM BAG IV PRN (00:10)
[2021-12-18] MEDS ORDERED: STAT IV Infusion **Titration per Protocol STA (00:10)
[2021-12-18] MEDS ORDERED: diphenhydrAMINE 50 MG/ML VIAL IV STA (00:10)
[2021-12-18] MEDS ORDERED: methylPREDNISolone 125 MG/2 ML VIAL IV STA (00:10)
[2021-12-18] MEDS ORDERED: ETOMIDATE 2 MG/ML 20 ML VIAL IV ONE ×2 (00:17→17:55)
[2021-12-18] MEDS ORDERED: SUCCINYLCHOLINE CHLORIDE 20 MG/ML 10 ML VIAL IV ONE ×2 (00:17→17:55)
[2021-12-18] MEDS: propofoL 1,000 MG/100 ML VIAL IV SCH ×3 (00:22→00:28)
[2021-12-18 00:23] LABS: Alanine Aminotransferase 13 U/L (7-52); Albumin Level 3.1 gm/dl (3.4-5.0); Alkaline Phosphatase 68 U/L (34-104); Anion Gap 8 (3-11); Aspartate Aminotransferase 23 U/L (13-39); BUN Creatinine Ratio 14.6 (10-20); Bilirubin Direct 0.1 mg/dl (0-0.2); Bilirubin,Total 0.4 mg/dl (0.2-1.0); Blood Urea Nitrogen 12 mg/dl (6-23); Calcium 8.7 mg/dl (8.5-10.1); Carbon Dioxide 31 mmol/L (21-32); Chloride 85 mmol/L (98-107); Est GFR (African American) 81.1 ml/min; Glucose 154 mg/dl (70-99(Fasting)); Lipase 54 U/L (11-82); Magnesium 1.7 mg/dl (1.7-2.4); Potassium 3.7 mmol/L (3.5-5.1); Sodium 124 mmol/L (136-145)
[2021-12-18] MEDS ORDERED: OPTIRAY 320 125ml IV ONE (00:54)
[2021-12-18 01:42] LABS: Partial Thromboplastin Time 27.8 Seconds (21.0-31.0)
--- NOTE | 2021-12-18 01:52 | History & Physical Report ---
Date of Service December 18, 2021 Assessment & Plan (1) Acute hypoxemic respiratory failure: Plan: Possible asthma/COPD exacerbation Atypical pneumonia on initial CT read New LBBB with troponin elevation hx PSVT, patient NSR hx PVD moderate aortic stenosis hypertension, elevated secondary to illness hyperlipidemia on statin Rx DM2 on oral medications, well-controlled as of recent hemoglobin A1c of 6.3 last November 25 2 Acute on chronic hyponatremia Recent back surgery Postop anemia ICU Vent management Steroids, neb RTC for presumptive asthma/COPD exacerbation CS, Doxycycline for possible apical pneumonia Trend troponin TTE for new left bundle branch block May need cardiology evaluation Careful correction of sodium, hyponatremia work-up Basal insulin adjusted for n.p.o. status, ISS BG goal 1 40-1 80 DVT prophylaxis per Lovenox subcu Full code Attempted to contact listed printed circuit boards contact printer Miss Ermelinda Moser ([phone]) over the phone. No answer. Left message for call back. Total critical care time was 50 minutes. Text document was generated using [employer] voice recognition software. It may contain grammatical or spelling errors. Kindly contact undersigned for clarification of any documentation item in question. History of Present Illness Chief Complaint: Respiratory distress Primary Care Provider: Dr. Chávez History obtained from ER provider and records. Unable to obtain history from patient secondary to intubated state. Medical history significant for PSVT, PVD, moderate aortic stenosis (TTE 2019 ), hypertension, hyperlipidemia, DM2 on oral medications, chronic hyponatremia, GERD, anxiety/mood disorder, RLS, lumbar radiculopathy status post recent surgery. Last confinement [facility] [address] under Orthopedics spine service from December 07 to 2021 for lumbar decompression surgery for lumbar radiculopathy. Patient subsequently discharged to [facility] facility. As per records, patient woke up in the middle of the night at rehab facility with severe respiratory distress. O2 sats noted to be 80s. Patient placed on CPAP. Later switched to BiPAP at the ER. Patient intubated at the ER for worsening respiratory distress and agitation. Medical History as above Surgical History : Lumbar decompression surgery, breast lesion excision, carpal tunnel surgery, laser trabeculoplasty, cataract surgery, BTL, cholecystectomy, tonsillectomy/adenoidectomy, sliding hernia repair Family History : Depression Personal/Social history : Non-smoker, occasional EtOH intake, retired [employer] employee Allergies Allergy/AdvReac Type Severity Reaction Status Date / Time amoxicillin Allergy Unknown HANDS Verified 07/19/16 06:36 ITCHING Iodinated Contrast Media Allergy Unknown HIVES Verified 12/17/21 23:50 lisinopril Allergy Unknown COUGH Verified 12/17/21 23:50 SUNFLOWER SEEDS Allergy Unknown TONGUE Uncoded 12/17/21 23:50 SWELLING Home Medications Medication Instructions Recorded Confirmed Type acetaminophen 325 mg tablet 325 mg PO Q4 PRN 12/17/21 12/17/21 History albuterol sulfate 90 mcg/actuation 2 puff INHALATION Q6 PRN 12/17/21 12/17/21 History aerosol inhaler amiodarone 200 mg tablet 200 mg PO DAILY 12/17/21 12/17/21 History baclofen 5 mg tablet 5 mg PO TID 12/17/21 12/17/21 History cyanocobalamin (vitamin B-12) 2,000 mcg PO DAILY 12/17/21 12/17/21 History 1,000 mcg tablet (Vitamin B-12) docusate sodium 100 mg capsule 100 mg PO BID 12/17/21 12/17/21 History (Colace) duloxetine 60 mg capsule,delayed 60 mg PO DAILY 12/17/21 12/17/21 History release fluticasone furoate 200 1 ea INHALATION DAILY 12/17/21 12/17/21 History mcg-vilanterol 25 mcg/dose inhalation powder (Breo Ellipta) gabapentin 800 mg tablet 800 mg PO TID 12/17/21 12/17/21 History losartan 50 mg tablet 50 mg PO DAILY 12/17/21 12/17/21 History metformin 500 mg tablet 500 mg PO QAM 12/17/21 12/17/21 History metoprolol succinate 25 mg 25 mg PO DAILY 12/17/21 12/17/21 History tablet,extended release 24 hr nitroglycerin 0.4 mg sublingual 0.4 mg SUBLINGUAL UD PRN 12/17/21 12/17/21 History tablet (Nitrostat) oxycodone 10 mg tablet 10 mg PO Q6H PRN 12/17/21 12/17/21 History pantoprazole 40 mg tablet,delayed 40 mg PO DAILYBB 12/17/21 12/17/21 History release pravastatin 80 mg tablet 80 mg PO HS 12/17/21 12/17/21 History Past Med/Surg History Medical History (Updated 12/18/21 @ 07:46 by Kenneth Felix MD) Anemia Anxiety and depression COPD (chronic obstructive pulmonary disease) Diabetes mellitus Diabetic neuropathy Diabetic retinopathy Dyslipidemia GERD (gastroesophageal reflux disease) Hypertension LBBB (left bundle branch block) Lumbar stenosis Paroxysmal atrial tachycardia PVD (peripheral vascular disease) Social History Smoking Status: Never smoker Hx Alcohol Use: Yes Alcohol type: beer Hx Substance Use: No Preferred Language: Turkmen Current Living Situation: Alone Feels Safe at Home: Yes Review of Systems Review of Systems: Could not be reliably obtained secondary to intubated state Physical Exam Physical Exam: GENERAL: Sedated, intubated, obese, no respiratory distress SKIN: Pallor, warm HEENT: Pale palpebral conjunctivae, no ptosis, dry buccal mucosa, ET in place NECK : Supple, short neck, no tenderness CHEST : Decreased breath sounds, scattered rhonchi, no tenderness HEART : Bradycardic, no obvious murmurs ABDOMEN: Some distention, nontender EXTREMITIES : Minimal LE swelling, no LE tenderness, no other conspicuous deformities noted NEUROLOGIC : Sedated , no facial asymmetry, gait and stance not assessed Results & Data Results & Data ([facility]) Vital Signs (Past 12 Hours) Vital Signs Temp Pulse Pulse Resp BP BP Pulse Ox 12/18/21 01:30 57 L 20 110/52 L 100 12/18/21 01:00 70 18 167/79 H 100 12/18/21 00:30 71 20 196/79 H 99 12/18/21 00:16 18 100 12/18/21 00:10 100 12/18/21 00:00 70 22 100 12/17/21 23:39 100 12/17/21 23:15 60 19 100 12/17/21 23:10 36.7 C 62 28 H 117/75 100 Laboratory Results Laboratory Results WBC 16.43 K/uL (4.8-10.8) H 12/17/21 23:14 RBC 3.24 M/uL (4.2-5.4) L 12/17/21 23:14 Hgb 9.6 g/dL (12.0-16.0) L 12/17/21 23:14 Hct 29.0 % (37-47) L 12/17/21 23:14 MCV 89.5 fL (80-100) 12/17/21 23:14 MCH 29.6 pg (25-34) 12/17/21 23:14 MCHC 33.1 g/dL (32-36) 12/17/21 23:14 RDW Std Deviation 43.8 fL (36.4-46.3) 12/17/21 23:14 RDW Coeff of Be 13.5 % (11.5-14.5) 12/17/21 23:14 Plt Count 548 K/uL (130-400) H 12/17/21 23:14 MPV 9.5 fL (7.4-10.4) 12/17/21 23:14 Immature Gran % (Auto) 0.9 % 12/17/21 23:14 Neut % (Auto) 87.5 % 12/17/21 23:14 Lymph % (Auto) 5.1 % 12/17/21 23:14 [place] % (Auto) 5.5 % 12/17/21 23:14 Eos % (Auto) 0.9 % 12/17/21 23:14 Baso % (Auto) 0.1 % 12/17/21 23:14 Neut # (Auto) 14.40 K/uL (1.4-6.5) H 12/17/21 23:14 Lymph # (Auto) 0.84 K/uL (1.2-3.4) L 12/17/21 23:14 [place] # (Auto) 0.90 K/uL (0.11-0.59) H 12/17/21 23:14 Eos # (Auto) 0.14 K/uL (0-0.5) 12/17/21 23:14 Baso # (Auto) 0.01 K/uL (0-0.2) 12/17/21 23:14 Immature Gran # (Auto) 0.14 K/uL (0.00-0.02) H 12/17/21 23:14 APTT 27.8 Seconds (21.0-31.0) 12/17/21 23:14 PTT Ratio 1.0 12/17/21 23:14 VBG pH 7.32 (7.36-7.41) L 12/17/21 23:19 VBG pCO2 64 mmHg (38-50) H 12/17/21 23:19 VBG pO2 23 mmHg 12/17/21 23:19 VBG HCO3 32 mmol/L 12/17/21 23:19 VBG O2 Saturation < 60.0 % 12/17/21 23:19 VBG Base Excess 4.8 mEq/L 12/17/21 23:19 Sodium 124 mmol/L (136-145) L 12/17/21 23:14 Potassium 3.7 mmol/L (3.5-5.1) 12/17/21 23:14 Chloride 85 mmol/L (98-107) L 12/17/21 23:14 Carbon Dioxide 31 mmol/L (21-32) 12/17/21 23:14 Anion Gap 8 (3-11) 12/17/21 23:14 BUN 12 mg/dl (6-23) 12/17/21 23:14 Creatinine 0.82 mg/dl (0.6-1.2) 12/17/21 23:14 Est Cr Clr Drug Dosing Not Reportable 12/17/21 23:14 Est GFR ( Amer) 81.1 ml/min 12/17/21 23:14 Est GFR (Non-Af Amer) 70.0 ml/min 12/17/21 23:14 BUN/Creatinine Ratio 14.6 (10-20) 12/17/21 23:14 Glucose 154 mg/dl (70-99(Fasting)) H 12/17/21 23:14 Osmolality 260 mOsm/kg (280-300) L 12/17/21 23:14 Lactate 1.8 mmol/L (0.4-2.0) 12/17/21 23:14 Calcium 8.7 mg/dl (8.5-10.1) 12/17/21 23:14 Magnesium 1.7 mg/dl (1.7-2.4) 12/17/21 23:14 Total Bilirubin 0.4 mg/dl (0.2-1.0) 12/17/21 23:14 Direct Bilirubin 0.1 mg/dl (0-0.2) 12/17/21 23:14 AST 23 U/L (13-39) 12/17/21 23:14 ALT 13 U/L (7-52) 12/17/21 23:14 Alkaline Phosphatase 68 U/L (34-104) 12/17/21 23:14 Troponin I High Sens 33.7 pg/ml (0-14) H 12/17/21 23:14 B-Natriuretic Peptide 116 pg/ml (0-100) H 12/17/21 23:19 Total Protein 6.0 gm/dl (6.0-8.3) 12/17/21 23:14 Albumin 3.1 gm/dl (3.4-5.0) L 12/17/21 23:14 Lipase 54 U/L (11-82) 12/17/21 23:14 Procalcitonin < 0.05 ng/ml (0-0.5) 12/17/21 23:14 Urine Color Yellow 12/17/21 23:35 Urine Appearance Clear (Clear) 12/17/21 23:35 Urine pH 5.5 (4.5-7.5) 12/17/21 23:35 Ur Specific [place] 1.020 (1.000-1.030) 12/17/21 23:35 Urine Protein Negative (Negative) 12/17/21 23:35 Urine Glucose (UA) Negative (Negative) 12/17/21 23:35 Urine Ketones Negative (Negative) 12/17/21 23:35 Urine Blood 2+ (Negative) H 12/17/21 23:35 Urine Nitrite Negative (Negative) 12/17/21 23:35 Urine Bilirubin Negative (Negative) 12/17/21 23:35 Urine Urobilinogen Negative (Negative) 12/17/21 23:35 Ur Leukocyte Esterase Negative (Negative) 12/17/21 23:35 SARS-CoV-2, RNA, NAAT NEGATIVE (NEGATIVE) 12/17/21 23:35 Blood Type O Positive 12/17/21 23:19 Antibody Screen NEGATIVE 12/17/21 23:[address] chest initial read: Limited evaluation of segmental and more distal pulmonaryarteries due to respiratorymotion artifact. No filling defectswithin central pulmonaryarteries to suggest pulmonaryembolism. Extensive relativelysymmetric bilateral nodular and groundglass opacitieswhich maybe related to atypical infection. No pleural effusion or pneumothorax. No pericardial effusion. No mediastinal or axillary lymphadenopathy. Partiallyvisualized endotracheal tube which terminates in the trachea at the level of the aortic arch. Partiallyvisualized NG tube which was visualized to the level of the gastric body. EKG as per my interpretation rate 55, sinus bradycardia, LAD, LAFB, LBBB
[2021-12-18 02:06] LABS: Adenovirus PCR Not Detected (NotDetected); Bordetella parapertussis PCR Not Detected (NotDetected); Bordetella pertussis PCR Not Detected (NotDetected); Chlamydia pneumoniae PCR Not Detected (NotDetected); Coronavirus 229E PCR Not Detected (NotDetected); Coronavirus CoV-2 (COVID19)PCR Not Detected (NotDetected); Coronavirus HKU1 PCR Not Detected (NotDetected); Coronavirus NL63 PCR Not Detected (NotDetected); Coronavirus OC43PCR Not Detected (NotDetected); Human Metapneumovirus PCR Not Detected (NotDetected); Influenza A PCR Not Detected (NotDetected); Influenza B PCR Not Detected (NotDetected); Mycoplasma pneumoniae PCR Not Detected (NotDetected); Parainfluenza Virus 1 PCR Not Detected (NotDetected); Parainfluenza Virus 2 PCR Not Detected (NotDetected); Parainfluenza Virus 3 PCR Not Detected (NotDetected); Parainfluenza Virus 4 PCR Not Detected (NotDetected); Respiratory Syncytial VirusPCR Not Detected (NotDetected); Rhinovirus/Enterovirus PCR Not Detected (NotDetected)
[2021-12-18] MEDS ORDERED: methylPREDNISolone 40 MG in SYRINGE 0 ML IV STA (02:15)
[2021-12-18] MEDS ORDERED: DOXYCYCLINE HYCLATE 100 MG in DEXTROSE 5% 100 ML IV STA (02:18)
[2021-12-18] MEDS ORDERED: ALBUT/IPRATROP 3MG/0.5MG NEB 3 ML VIAL NEB STA (02:20)
[2021-12-18] MEDS ORDERED: INSULIN GLARGINE SOLOSTAR 100 UNITS/ML 3 ML PEN SC STA (02:26)
[2021-12-18] MEDS ORDERED: SODIUM CHLORIDE 0.9% 500 ML IV ONE (02:28)
[2021-12-18 02:30] LABS: Base Excess ABG 1.2 mEq/L (-9-1.8); HCO3 ABG 27 mmol/L (19-24); Oxygen Saturation ABG 99.2 % (90-95); PCO2 ABG 50 mmHg (35-46); PO2 ABG 163 mmHg (80-95); pH ABG 7.36 (7.35-7.45)
[2021-12-18 02:36] LABS: Allen Test Pos (Pos)
[2021-12-18] MEDS ORDERED: GLUCOSE 10 TABS/TUBE PO PRN (03:29)
[2021-12-18] MEDS ORDERED: GLUCAGON FOR INJ 1 MG VIAL SQ PRN (03:29)
[2021-12-18] MEDS ORDERED: CARBOHYDRATES FOR HYPOGLYCEMIA PO PRN (03:29)
[2021-12-18] MEDS ORDERED: ACETAMINOPHEN 1000 MG/100 ML IV IV PRN (03:29)
[2021-12-18] MEDS ORDERED: DEXTROSE 50% 50 ML SYRINGE IV PRN (03:29)
[2021-12-18] MEDS ORDERED: GLUCOSE 40% GEL 15 GM TUBE PO PRN (03:29)
--- NOTE | 2021-12-18 03:49 | Critical Care Consultation ---
Date of Consultation December 18, 2021 Assessment & Plan (1) Acute respiratory failure with hypoxia: Reason Critically Ill: 76-year-old female presents to the ICU following acute hypoxic respiratory failure requiring mechanical ventilation. Neuro - Sedation: Propofol Diabetic neuropathycontinue gabapentin Cardiac - HTNcontinue MTP, hold losartan for now -Maintain normotension Paroxysmal atrial tachycardiacontinue amiodarone EKG with LBBB, ventricular rate of 59, QTc 500 Dyslipidemiacontinue pravastatin Respiratory - Acute hypoxic respiratory failurepatient initially with hypoxia and mild respiratory acidosis on VBG, failed BiPAP trial and intubated for worsening respiratory distress -CTA chest negative for PE but does show diffuse bilateral groundglass opacities which may be consistent with pulmonary edema versus atypical infection -Patient with history of COPD, continue nebs -Cannot rule out atypical pneumonia at this time, continue broad-spectrum antibiotics. See ID below -Pulmonary edema likely as patient was significantly hypertensive on arrival to ED. Has shown significant improvement in oxygenation following intubation -We will give IV Lasix 40 mg x 1 dose, maintain negative fluid balance for now -Follow-up echo -Continue with ventilator support, wean vent as tolerated -Follow-up ABG and chest x-ray this a.m. -Continuous ET CO2 and pulse ox monitoring GI - N.p.o. GERDPPI RENAL/LYTES - Creatinine within normal limits, monitor routine BMPs and replete electrolytes as indicated Acute hyponatremiainitial sodium 124 now 122. Osmolality low on BMP. Peers euvolemic on exam -Unsure of etiology at this time, urine studies pending -Goal correction rate 8 mEq per 24 hours -Starting 3% hypertonic saline -Consider consultation to nephrology -Trend sodiums every 6 hours - Indwelling Orozco catheter, strict I's and O's ENDO - DM type IIcurrently euglycemic. Hold metformin for now. -Continue with Lantus, sliding scale - ICU hyperglycemic protocol HEME - H&H stable, monitor routine CBCs ID - Pneumonia?Patient with evidence of atypical pneumonia on CT. Elevated WBC and fever. Pro-Eh and lactate negative -UA unremarkable, follow-up urine culture -Blood cultures pending -Bio fire and COVID-19 negative -Nasal MRSA pending -Continue doxycycline and cefepime for now LINES/IV ACCESS - Peripheral IVs DVT PROPHYLAXIS - SCDs I have personally spent 50 minutes of critical care time in the direct management of this patient. This is a life/limb threatening event. This includes time spent evaluating patient, direct bedside care, chart review, placing orders, interpretation of diagnostic studies, discussion with consultants, patient, and family members, as well as other required patient management activities. This time is exclusive of all separately billable procedures, and teaching time and separate from and in addition to any other critical care service time. Thank you for allowing us to participate in the care of this patient. Please refer to my attending physician's documentation for any further recommendations. (2) Acute hyponatremia: (3) Diabetes mellitus: (4) COPD (chronic obstructive pulmonary disease): (5) Hypertension: (6) Dyslipidemia: (7) GERD (gastroesophageal reflux disease): (8) Anxiety and depression: (9) PVD (peripheral vascular disease): (10) Anemia: (11) Diabetic neuropathy: (12) Diabetic retinopathy: (13) Lumbar stenosis: (14) Paroxysmal atrial tachycardia: (15) LBBB (left bundle branch block): History of Present Illness Attending Physician: Shon Rowe MD History of Present Illness Patient is a 76-year-old female with past medical history COPD, dyslipidemia,, DM type II, HTN, GERD, anxiety and depression, PVD, anemia and recent lumbar back surgery who presented to the emergency department earlier this evening from [facility]. Patient was recently at [facility] where she underwent lumbar spinal surgery and was discharged to [facility]. Earlier this evening she awoke to severe respiratory distress and anxiety with oxygen saturation in the low 80s. She was taken to the emergency department on BiPAP, but ultimately became significantly distressed on BiPAP and required intubation. She underwent CTA which is negative for evidence of PE, but did show bilateral groundglass opacities. COVID-19 and bio fire negative. She did have mild leukocytosis with WBC 16. Pro-Eh and lactate within normal limits. COVID-19 negative and bio fire negative. She did have a mild respiratory acidosis on VBG initially on BiPAP. Patient now being transferred to the ICU for further management at this time. Allergies Allergy/AdvReac Type Severity Reaction Status Date / Time amoxicillin Allergy Unknown HANDS Verified 07/19/16 06:36 ITCHING Iodinated Contrast Media Allergy Unknown HIVES Verified 12/17/21 23:50 lisinopril Allergy Unknown COUGH Verified 12/17/21 23:50 SUNFLOWER SEEDS Allergy Unknown TONGUE Uncoded 12/17/21 23:50 SWELLING Home Medications Medication Instructions Recorded Confirmed Type acetaminophen 325 mg tablet 325 mg PO Q4 PRN 12/17/21 12/17/21 History albuterol sulfate 90 mcg/actuation 2 puff INHALATION Q6 PRN 12/17/21 12/17/21 History aerosol inhaler amiodarone 200 mg tablet 200 mg PO DAILY 12/17/21 12/17/21 History baclofen 5 mg tablet 5 mg PO TID 12/17/21 12/17/21 History cyanocobalamin (vitamin B-12) 2,000 mcg PO DAILY 12/17/21 12/17/21 History 1,000 mcg tablet (Vitamin B-12) docusate sodium 100 mg capsule 100 mg PO BID 12/17/21 12/17/21 History (Colace) duloxetine 60 mg capsule,delayed 60 mg PO DAILY 12/17/21 12/17/21 History release fluticasone furoate 200 1 ea INHALATION DAILY 12/17/21 12/17/21 History mcg-vilanterol 25 mcg/dose inhalation powder (Breo Ellipta) gabapentin 800 mg tablet 800 mg PO TID 12/17/21 12/17/21 History losartan 50 mg tablet 50 mg PO DAILY 12/17/21 12/17/21 History metformin 500 mg tablet 500 mg PO QAM 12/17/21 12/17/21 History metoprolol succinate 25 mg 25 mg PO DAILY 12/17/21 12/17/21 History tablet,extended release 24 hr nitroglycerin 0.4 mg sublingual 0.4 mg SUBLINGUAL UD PRN 12/17/21 12/17/21 History tablet (Nitrostat) oxycodone 10 mg tablet 10 mg PO Q6H PRN 12/17/21 12/17/21 History pantoprazole 40 mg tablet,delayed 40 mg PO DAILYBB 12/17/21 12/17/21 History release pravastatin 80 mg tablet 80 mg PO HS 12/17/21 12/17/21 History Patient History Medical History (Updated 12/18/21 @ 07:46 by Kenneth Felix MD) Anemia Anxiety and depression COPD (chronic obstructive pulmonary disease) Diabetes mellitus Diabetic neuropathy Diabetic retinopathy Dyslipidemia GERD (gastroesophageal reflux disease) Hypertension LBBB (left bundle branch block) Lumbar stenosis Paroxysmal atrial tachycardia PVD (peripheral vascular disease) Social History Smoking Status: Never smoker Hx Alcohol Use: Yes Alcohol type: beer Hx Substance Use: No Preferred Language: Chinese Current Living Situation: Alone Feels Safe at Home: Yes Review of Systems Review of Systems: Unobtainable due to cognitive status and Unobtainable due to endotracheal tube Physical Exam Constitutional: + mechanically ventilated Sedated Eyes: PERRL, conjunctivae normal, anicteric sclerae ENMT: external ear and nose normal, oropharynx normal Neck: trachea midline, no thyromegaly Respiratory: Lungs with coarse crackles bilaterally and diminished bilaterally in bases. Symmetrical chest wall movement Cardiovascular: RRR, no murmur, no edema Heart Sounds: normal S1 and normal S2 Extremities: normal capillary refill; no edema Gastrointestinal (Abdomen): normal bowel sounds, soft, nontender, no hepatosplenomegaly Musculoskeletal: Unable to assess due to sedation Skin: no rashes, warm and dry Neurologic: Unable to assess due to sedation Psychiatric: Unable to assess due to sedation Genitourinary: Indwelling Orozco catheter present Results & Data Results & Data ([facility]) Vital Signs (Past 12 Hours) Vital Signs Temp Pulse Pulse Resp BP BP Pulse Ox 12/18/21 02:34 58 L 18 131/54 L 100 12/18/21 02:00 60 20 135/61 100 12/18/21 01:30 57 L 20 110/52 L 100 12/18/21 01:00 70 18 167/79 H 100 12/18/21 00:30 71 20 196/79 H 99 12/18/21 00:16 18 100 12/18/21 00:10 100 12/18/21 00:00 70 22 100 12/17/21 23:39 100 12/17/21 23:15 60 19 100 12/17/21 23:10 36.7 C 62 28 H 117/75 100 Coding Level of Care Code Critical Care 1st 30-74 mins Diagnoses Acute respiratory failure with hypoxia J96.01 Acute hyponatremia E87.1 Diabetes mellitus E11.9 COPD (chronic obstructive pulmonary disease) J44.9 Hypertension I10 Dyslipidemia E78.5 GERD (gastroesophageal reflux disease) K21.9 Anxiety and depression F41.9; F32.A PVD (peripheral vascular disease) I73.9 Anemia D64.9 Diabetic neuropathy E11.40 Diabetic retinopathy E11.319 Lumbar stenosis M48.061 Paroxysmal atrial tachycardia I47.1 LBBB (left bundle branch block) I44.7
[2021-12-18] MEDS ORDERED: CEFEPIME 2,000 MG in SYRINGE 0 ML IV SCH (04:00)
[2021-12-18 04:03] LABS: Hematocrit (blood only) 28.3 % (37-47); Hemoglobin 9.4 g/dL (12.0-16.0); Mean Corpuscular Hemoglobin 29.5 pg (25-34); Mean Corpuscular Hgb Conc 33.2 g/dL (32-36); Mean Corpuscular Volume 88.7 fL (80-100); Mean Platelet Volume 9.2 fL (7.4-10.4); Platelet Count 486 K/uL (130-400); RDW Coefficient of Variation 13.6 % (11.5-14.5); RDW Standard Deviation 44.4 fL (36.4-46.3); Red Blood Count 3.19 M/uL (4.2-5.4); White Blood Count 26.65 K/uL (4.8-10.8)
[2021-12-18] MEDS: MAGNESIUM SULFATE / D5W 1 GM/100 ML BAG IV SCH ×4 (04:05→14:37)
[2021-12-18 04:23] LABS: BUN Creatinine Ratio 15.7 (10-20); Basophils # (auto) 0.01 K/uL (0-0.2); Calcium 8.6 mg/dl (8.5-10.1); Est GFR (African American) 79.9 ml/min; Immature Granulocytes # (auto) 0.15 K/uL (0.00-0.02); Immature Granulocytes % (auto) 0.6 %; Lymphocytes # (auto) 0.27 K/uL (1.2-3.4); Monocytes # (auto) 1.09 K/uL (0.11-0.59); Monocytes % (auto) 4.1 %; Neutrophils # (auto) 25.13 K/uL (1.4-6.5); Neutrophils % (auto) 94.3 %; Polychromasia 1+
[2021-12-18] MEDS: INSULIN ASPART PER UNIT SC SCH ×4 (04:24→20:59)
[2021-12-18] MEDS ORDERED: FUROSEMIDE 40 MG/4 ML VIAL IV ONE (04:32)
[2021-12-18] MEDS ORDERED: SODIUM CHLORIDE 3 % 500 ML IV SCH (04:45)
[2021-12-18 05:39] LABS: Appearance Urine Clear (Clear); Bilirubin Urine Negative (Negative); Blood Urine Negative (Negative); Color Urine Yellow; Glucose Urine UA Negative (Negative); Ketones Urine Trace (Negative); Leukocyte Esterase Urine Negative (Negative); Nitrite Urine Negative (Negative); Protein Urine Negative (Negative); Specific Gravity Urine > 1.045 (1.000-1.030); Urobilinogen Urine Negative (Negative); pH Urine 6.5 (4.5-7.5)
[2021-12-18] MEDS: METOPROLOL TARTRATE 1 MG/ML VIAL IV SCH ×3 (06:38→17:14)
--- NOTE | 2021-12-18 07:05 | XRay Report ---
XR chest 1V portable CLINICAL HISTORY: Respiratory failure. COMPARISON STUDY: Chest radiograph and chest CT performed earlier today. FINDINGS: Tip of endotracheal tube 4.5 cm above the germain. Tip of nasogastric tube is below lower as pect of this image but at least within the proximal stomach. Cardiac size is normal. Mediastinal cont ours are normal. There is no pneumothorax or pleural effusion. Patchy multifocal airspace opacities w ithin the lungs are similar to prior exam. IMPRESSION: 1. Satisfactory positioning of the endotracheal and nasogastric tubes. 2. Persistent bilateral airspace opacities suggestive of an infectious process. ACT 112: Negative or not required by law. Electronically signed by: Eber Stephens M.D. 12/18/2021 7:04 AM
[2021-12-18] MEDS ORDERED: Nursing to Pharmacy Communication SCH ×2 (07:30→17:00)
[2021-12-18] MEDS: ALBUT/IPRATROP 3MG/0.5MG NEB 3 ML VIAL NEB SCH ×2 (07:55→11:54)
[2021-12-18] MEDS: ACETAMINOPHEN 1,000 MG/100 ML VIAL IV PRN ×2 (08:33→14:39)
--- NOTE | 2021-12-18 08:35 | XRay Report ---
XR chest 1V portable CLINICAL HISTORY: shob. COMPARISON STUDY: No previous studies for comparison. TECHNIQUE: 1 view of the chest FINDINGS: Single frontal view of the chest demonstrates the heart to be mildly enlarged. The lungs are clear of alveolar opacities. There is no evidence for pleural effusion. There is no evidence for vascular con gestion. There is no acute osseous pathology. IMPRESSION: 1. No acute cardiopulmonary disease. ACT 112: Negative or not required by law. Electronically signed by: Sukh Frazier M.D. 12/18/2021 8:34 AM
--- NOTE | 2021-12-18 08:37 | XRay Report ---
XR chest 1V portable CLINICAL HISTORY: post intubation. COMPARISON STUDY: 12/17/2021 TECHNIQUE: 1 view of the chest FINDINGS: Single frontal view of the chest demonstrates the cardiomediastinal silhouette to be within normal li mits. Endotracheal tube has been placed with its tip approximately 4.8 cm above the germain. NG tube i s also in place with its tip extending into the upper body of the stomach. There has been interval development of mild central vascular congestion and peripheral interstitial e angel. The lungs are clear of alveolar opacities. There is no evidence for pleural effusion. There is no acute osseous pathology. IMPRESSION: 1. Status post intubation and NG tube placement as described. 2. Interval development of central vascular congestion and peripheral interstitial edema. ACT 112: Negative or not required by law. Electronically signed by: Sukh Frazier M.D. 12/18/2021 8:36 AM
--- NOTE | 2021-12-18 08:46 | CT Scan Report ---
CT ANGIOGRAPHY OF THE CHEST, PULMONARY EMBOLUS PROTOCOL CLINICAL HISTORY: Severe shortness of breath. Evaluate for pulmonary embolus. COMPARISON STUDY: Chest radiograph December 18, 2021 at 12:13 AM. TECHNIQUE: Following IV administration of 120 mL of Optiray, helical axial images of the chest were o btained utilizing the pulmonary embolus protocol. Maximal intensity projections and sagittal and cor onal reformats were viewed on an independent 3D workstation. IV contrast was administered without co mplication. Automated exposure control was utilized for the study. A dose lowering technique was ut ilized adhering to the principles of ALARA. CT DOSE: 690.14 mGy.cm FINDINGS: Tip of endotracheal tube is 2.7 cm above the germain. Tip of nasogastric tube is within the distal stomach. Mild compression fracture of the superior endplate of T3 is likely subacute to chron ic. Postoperative findings within the spine are partially imaged, including skin malina. This exam i s significantly compromised by respiratory motion. No central pulmonary emboli are identified. Remain eric of pulmonary arteries are suboptimally assessed. There is no pericardial effusion. Size of the he art is within normal limits. No pneumothorax or pleural effusion is noted. Extensive alveolar opaciti es within the lungs are noted. These are more pronounced within the lower lobes. There is no cavitati on. Large amount of poorly formed stool within visualized portions of the colon is noted. The gallbla dder surgically absent. IMPRESSION: 1. Exam significantly compromised by respiratory motion. No pulmonary emboli identified although segm ental and subsegmental pulmonary arteries suboptimally assessed. 2. Extensive airspace opacities throughout the lungs. The findings favor an infectious process. Aspir ation pneumonitis is within the differential but considered less likely. 3. Satisfactory positioning of the endotracheal and nasogastric tubes. ACT 112: Negative or not required by law. Electronically signed by: bEer Stephens M.D. 12/18/2021 8:44 AM
[2021-12-18] MEDS ORDERED: AMIODARONE 200 MG TAB PO SCH (09:00)
[2021-12-18] MEDS ORDERED: methylPREDNISolone 40 MG in SYRINGE 0 ML IV SCH (09:00)
[2021-12-18 10:11] LABS: Hematocrit (blood only) 25.7 % (37-47); Hemoglobin 8.7 g/dL (12.0-16.0); Mean Corpuscular Hemoglobin 29.6 pg (25-34); Mean Corpuscular Hgb Conc 33.9 g/dL (32-36); Mean Corpuscular Volume 87.4 fL (80-100); Mean Platelet Volume 9.4 fL (7.4-10.4); Platelet Count 479 K/uL (130-400); RDW Coefficient of Variation 13.7 % (11.5-14.5); RDW Standard Deviation 44.2 fL (36.4-46.3); Red Blood Count 2.94 M/uL (4.2-5.4); White Blood Count 29.82 K/uL (4.8-10.8)
[2021-12-18 10:23] LABS: BUN Creatinine Ratio 17.1 (10-20); Calcium 8.3 mg/dl (8.5-10.1); Est GFR (African American) 88.9 ml/min; Est GFR (Non-African American) 76.7 ml/min; Magnesium 2.1 mg/dl (1.7-2.4); Phosphorus 2.9 mg/dl (2.5-4.9); Potassium 3.5 mmol/L (3.5-5.1)
[2021-12-18 10:27] LABS: Basophils # (auto) 0.01 K/uL (0-0.2); Eosinophils # (auto) 0.01 K/uL (0-0.5); Immature Granulocytes # (auto) 0.19 K/uL (0.00-0.02); Immature Granulocytes % (auto) 0.6 %; Lymphocytes # (auto) 0.42 K/uL (1.2-3.4); Lymphocytes % (auto) 1.4 %; Monocytes # (auto) 0.51 K/uL (0.11-0.59); Monocytes % (auto) 1.7 %; Neutrophils # (auto) 28.68 K/uL (1.4-6.5); Neutrophils % (auto) 96.3 %
[2021-12-18] MEDS ORDERED: PANTOprazole 40 MG in SYRINGE 0 ML IV SCH (11:00)
[2021-12-18] MEDS ORDERED: POTASSIUM CHLORIDE 20 MEQ/15 ML UDC PO STA (11:27)
[2021-12-18] MEDS ORDERED: INSULIN ASPART PER UNIT SC SCH ×2 (12:00→21:00)
--- NOTE | 2021-12-18 13:05 | Communication Note ---
Date of Service: December 18, 2021 Patient successfully liberated from the ventilator. Reports that she needed her inhaler which would have resolved her shortness of breath. Denies chest pain. Neuro - Sedation: Discontinue sedation. Cardiac - HTNcontinue MTP, hold losartan for now Paroxysmal atrial tachycardia Frequent Non-sustained ventricular tachycardia Abnormal EKG: LBB and Prolonged Qtc D/W Dr. Goodwin, formal consult pending - would load with amiodarone if having sustained VT -Resume home metoprolol 25 mg twice daily Dyslipidemiacontinue pravastatin Respiratory - Acute hypoxic respiratory failure -History of possible aspiration -CT findings reviewed -Erecruit negative -Continue with doxycycline and cefepime given recent hospitalization and subacute rehabilitation stay - Holding steroids: recently post-op, no convincing evidence for reactive airway disease at this time GI - Can have regular diet if passes bedside swallow GERDDiscontinue PPI RENAL/LYTES - hyponatremiaunclear onset: I suspect this is medication related or aspects of reset osmole stat -Trend sodiums every 6 hours - Stopping 3% saline, allow patient to normalize as patient is not experiencing altered mental status - Indwelling Orozco catheter, strict I's and O's ENDO - DM type IIcurrently euglycemic. Hold metformin for now. -Continue with Lantus, sliding scale - ICU hyperglycemic protocol HEME -Lovenox DVT prophylaxis ID - Possible Pneumonia -UA unremarkable, follow-up urine culture -Blood cultures pending -Bio fire and COVID-19 negative -Continue doxycycline and cefepime for now LINES/IV ACCESS - Peripheral IVs DVT PROPHYLAXIS - SCDs Patient stable for downgrade from ICU Coding Level of Care Code None
[2021-12-18] MEDS: ENOXAPARIN INJ 40 MG/0.4 ML SYR SQ SCH (14:38)
[2021-12-18] MEDS: DOXYCYCLINE HYCLATE 100 MG in DEXTROSE 5% 100 ML IV SCH (14:39)
--- NOTE | 2021-12-18 15:03 | Electrocardiogram Report ---
Test Reason : Blood Pressure : / mmHG Vent. Rate : 059 BPM Atrial Rate : 059 BPM P-R Int : 182 ms QRS Dur : 144 ms QT Int : 506 ms P-R-T Axes : 048 -47 064 degrees QTc Int : 500 ms Sinus bradycardia Left axis deviation Left bundle branch block Abnormal ECG When compared with ECG of 01-AUG-1993 12:28, Vent. rate has decreased BY 41 BPM Left bundle branch block is now Present Confirmed by Genaro Munoz ([id number]) on 12/18/2021 3:02:58 PM Referred By: REFERRED SELF Confirmed By:Genaro Munoz
--- NOTE | 2021-12-18 15:12 | Electrocardiogram Report ---
Test Reason : Blood Pressure : / mmHG Vent. Rate : 057 BPM Atrial Rate : 065 BPM P-R Int : 194 ms QRS Dur : 130 ms QT Int : 754 ms P-R-T Axes : 019 -45 -66 degrees QTc Int : 733 ms Sinus rhythm with frequent , and consecutive Premature ventricular complexes Left axis deviation Left bundle branch block Abnormal ECG When compared with ECG of 17-DEC-2021 23:19, (unconfirmed) T wave inversion now evident in Inferior leads T wave inversion now evident in Anterolateral leads QT has lengthened Confirmed by Genaro Munoz ([id number]) on 12/18/2021 3:12:23 PM Referred By: REFERRED SELF Confirmed By:Genaro Munoz
[2021-12-18] MEDS: CEFEPIME 2,000 MG in SYRINGE 0 ML IV SCH (16:22)
[2021-12-18] MEDS ORDERED: INSULIN ASPART PER UNIT ONE (17:17)
[2021-12-18] MEDS ORDERED: INSULIN ASPART PER UNIT SC ONE (17:30)
--- NOTE | 2021-12-18 20:37 | Hospitalist Progress Note ---
Date of Service December 18, 2021 Assessment & Plan (1) Acute hypoxemic respiratory failure: Plan: Acute hypoxic respiratory failure Possible pneumonia/Aspiration Asthma/COPD Exacerbation --CTA:Exam significantly compromised by respiratory motion. No pulmonary emboli identified although segmental and subsegmental pulmonary arteries suboptimally assessed. Extensive airspace opacities throughout the lungs. The findings favor an infectious process. Aspiration pneumonitis is within the differential but considered less likely. Satisfactory positioning of the endotracheal and nasogastric tubes. --Bio fire and COVID-19 negative S/P Extubation 12/18/21 Appreciate Shingler help Continue supplemental oxygen as needed Continue doxycycline, cefepime Speech therapy evaluation Aspiration precautions Resume home inhalers as able Possible Sepsis Continue antibiotics as above Follow-up cultures Paroxysmal atrial tachycardia NSVT New left bundle branch block Elevated troponin H/O PSVT, PVD Moderate aortic stenosis Cardiology consulted Resume metoprolol 25 mg twice daily, amiodarone Monitor electrolytes Hypertension Continue current medications Resume losartan as able Hyperlipidemia Resume statin as able DM II Hold p.o. meds HbA1C:6.3 last November 25, 2021 Continue insulin sliding scale Acute on chronic hyponatremia Monitor sodium levels Received hypertonic saline H/O Recent back surgery Postop anemia Monitor DVT Px: Lovenox SQ Code Status Full code Admission and Anticipated Discharge Date Admission Date: December 18, 2021 Subjective Patient is seen and examined at bedside Plan to be extubated this morning Discussed with process equipment operator Drowsy post extubation during my encounter Unable to obtain much history Review of Systems Review of Systems: Unobtainable due to endotracheal tube Physical Exam Physical Exam: Physical Exam: Vitals signs as noted above General Appearance:Moderately built and nourished, Intubated Head: normocephalic, Atraumatic Eyes: normal inspection, EOMI Neck: supple, Trachea midline Respiratory/Chest: Coarse breath sounds, No accessory muscle use Cardiovascular: S1, S2, No murmur Abdomen/GI:Soft, Non tender, Bowel sounds present Extremities/Musculoskeletal:normal inspection, no edema Neurologic/Psych:grossly no focal neurological deficits Skin: normal color, warm Results & Data Results & Data ([facility]) Vital Signs (Past 12 Hours) Vital Signs Temp Pulse Resp BP Pulse Ox 12/18/21 17:14 56 L 12/18/21 17:00 36.9 C 57 L 19 127/56 L 98 12/18/21 16:00 36.9 C 54 L 15 124/79 100 12/18/21 15:01 37.0 C 54 L 21 109/52 L 98 12/18/21 14:00 37.1 C 60 21 126/68 96 12/18/21 13:00 37.1 C 60 21 124/62 12/18/21 12:00 37.4 C 57 L 18 131/57 L 95 12/18/21 11:36 57 L 12/18/21 11:20 66 18 91 12/18/21 11:00 37.6 C H 55 L 18 120/67 12/18/21 10:00 37.7 C H 56 L 19 116/52 L 95 12/18/21 09:00 37.8 C H 58 L 18 123/56 L 95 Laboratory Results Short CBC 12/17/21 12/18/21 12/18/21 Range/Units 23:14 03:45 09:27 WBC 16.43 H 26.65 H D 29.82 H (4.8-10.8) K/uL Hgb 9.6 L 9.4 L 8.7 L (12.0-16.0) g/dL Hct 29.0 L 28.3 L 25.7 L (37-47) % Plt Count 548 H 486 H 479 H (130-400) K/uL BMP 12/17/21 12/18/21 12/18/21 23:14 03:45 03:45 Sodium 124 L 122 L Cancelled Potassium 3.7 4.0 Chloride 85 L 84 L Carbon Dioxide 31 28 BUN 12 13 Creatinine 0.82 0.83 Glucose 154 H 156 H Calcium 8.7 8.6 12/18/21 12/18/21 12/18/21 09:27 09:34 15:28 Sodium 125 L 124 L 128 L Potassium 3.5 Chloride 88 L Carbon Dioxide 28 BUN 13 Creatinine 0.76 Glucose 205 H Calcium 8.3 L Liver Function 12/17/21 Range/Units 23:14 Total Bilirubin 0.4 (0.2-1.0) mg/dl Direct Bilirubin 0.1 (0-0.2) mg/dl AST 23 (13-39) U/L ALT 13 (7-52) U/L Alkaline Phosphatase 68 (34-104) U/L Albumin 3.1 L (3.4-5.0) gm/dl Urine 12/17/21 12/18/21 Range/Units 23:35 05:00 Urine Color Yellow Yellow Urine Appearance Clear Clear (Clear) Urine pH 5.5 6.5 (4.5-7.5) Ur Specific [place] 1.020 > 1.045 H (1.000-1.030) Urine Protein Negative Negative (Negative) Urine Glucose (UA) Negative Negative (Negative)
[2021-12-18] MEDS: PRAVASTATIN SOD 40 MG TAB NG SCH (20:42)
[2021-12-18] MEDS: METOPROLOL TARTRATE 25 MG TAB PO SCH (20:42)
[2021-12-18] MEDS: oxyCODONE HCL IR 5 MG TAB (IMMEDIATE RELEASE) PO PRN (21:17)
[2021-12-19] MEDS: CEFEPIME 2,000 MG in SYRINGE 0 ML IV SCH ×2 (03:29→16:34)
[2021-12-19] MEDS: DOXYCYCLINE HYCLATE 100 MG in DEXTROSE 5% 100 ML IV SCH ×2 (03:29→16:34)
[2021-12-19 05:40] LABS: BUN Creatinine Ratio 22.7 (10-20); Calcium 8.8 mg/dl (8.5-10.1); Creatinine Clr Calc Pharmacy 58.1 ml/min; Est GFR (African American) 90.4 ml/min; Magnesium 2.3 mg/dl (1.7-2.4); Phosphorus 3.3 mg/dl (2.5-4.9); Potassium 4.5 mmol/L (3.5-5.1)
[2021-12-19 06:28] LABS: Hematocrit (blood only) 25.5 % (37-47); Hemoglobin 8.4 g/dL (12.0-16.0); Mean Corpuscular Hemoglobin 29.6 pg (25-34); Mean Corpuscular Hgb Conc 32.9 g/dL (32-36); Mean Corpuscular Volume 89.8 fL (80-100); Mean Platelet Volume 9.9 fL (7.4-10.4); Platelet Count 580 K/uL (130-400); RDW Standard Deviation 46.5 fL (36.4-46.3); Red Blood Count 2.84 M/uL (4.2-5.4); White Blood Count 37.36 K/uL (4.8-10.8)
[2021-12-19 06:29] LABS: Basophils # (auto) 0.02 K/uL (0-0.2); Basophils % (auto) 0.1 %; Eosinophils # (auto) 0.01 K/uL (0-0.5); Immature Granulocytes # (auto) 0.22 K/uL (0.00-0.02); Immature Granulocytes % (auto) 0.6 %; Lymphocytes # (auto) 0.88 K/uL (1.2-3.4); Lymphocytes % (auto) 2.4 %; Monocytes # (auto) 2.34 K/uL (0.11-0.59); Monocytes % (auto) 6.3 %; Neutrophils # (auto) 33.89 K/uL (1.4-6.5); Neutrophils % (auto) 90.6 %; RBC Morphology Unremarkable
[2021-12-19] MEDS ORDERED: ALBUT/IPRATROP 3MG/0.5MG NEB 3 ML VIAL NEB PRN (06:29)
[2021-12-19] MEDS: INSULIN ASPART PER UNIT SC SCH ×4 (07:56→20:22)
[2021-12-19] MEDS: oxyCODONE HCL IR 5 MG TAB (IMMEDIATE RELEASE) PO PRN (07:57)
[2021-12-19] MEDS: ENOXAPARIN INJ 40 MG/0.4 ML SYR SQ SCH (08:06)
[2021-12-19] MEDS: INSULIN GLARGINE SOLOSTAR 100 UNITS/ML 3 ML PEN SC SCH (08:06)
[2021-12-19] MEDS: AMIODARONE 200 MG TAB PO SCH (08:06)
[2021-12-19] MEDS: METOPROLOL TARTRATE 25 MG TAB PO SCH ×2 (08:07→20:28)
--- NOTE | 2021-12-19 09:39 | Cardiology Consultation ---
Date of Consultation December 19, 2021 Assessment & Plan (1) Acute hypoxemic respiratory failure: (2) LBBB (left bundle branch block): (3) Paroxysmal atrial tachycardia: (4) Anemia: (5) Diabetes mellitus: The patient is clinically stable and I agree that she can be transferred from the ICU to stepdown unit. I would continue her current dose of amiodarone. History of Present Illness Attending Physician: Shon Rowe MD History of Present Illness This is a 76-year-old female with a history of paroxysmal atrial fibrillation treated with amiodarone who underwent a lumbar fusion at [facility] earlier this month. She was rehabbing at [facility] and was brought to [facility] with respiratory distress. She was intubated and admitted to the ICU. She was on mechanical ventilation for about 24 hours and then after strong diuresis she was extubated. Soon after the extubation she had some runs of V. tach which were nonsustained. Her arrhythmias improved after her potassium and magnesium were corrected and she was given a dose of oral amiodarone. She has had no additional arrhythmias and has been maintaining sinus rhythm. She has no continued cardiac complaints today. Allergies Allergy/AdvReac Type Severity Reaction Status Date / Time amoxicillin Allergy Unknown HANDS Verified 07/19/16 06:36 ITCHING Iodinated Contrast Media Allergy Unknown HIVES Verified 12/17/21 23:50 lisinopril Allergy Unknown COUGH Verified 12/17/21 23:50 sunflower oil Allergy Verified 12/19/21 10:22 sunflower seed Allergy Verified 12/19/21 10:22 SUNFLOWER SEEDS Allergy Unknown TONGUE Uncoded 12/17/21 23:50 SWELLING Home Medications Medication Instructions Recorded Confirmed Type acetaminophen 325 mg tablet 325 mg PO Q4 PRN 12/17/21 12/17/21 History albuterol sulfate 90 mcg/actuation 2 puff INHALATION Q6 PRN 12/17/21 12/17/21 History aerosol inhaler amiodarone 200 mg tablet 200 mg PO DAILY 12/17/21 12/17/21 History baclofen 5 mg tablet 5 mg PO TID 12/17/21 12/17/21 History cyanocobalamin (vitamin B-12) 2,000 mcg PO DAILY 12/17/21 12/17/21 History 1,000 mcg tablet (Vitamin B-12) docusate sodium 100 mg capsule 100 mg PO BID 12/17/21 12/17/21 History (Colace) duloxetine 60 mg capsule,delayed 60 mg PO DAILY 12/17/21 12/17/21 History release fluticasone furoate 200 1 ea INHALATION DAILY 12/17/21 12/17/21 History mcg-vilanterol 25 mcg/dose inhalation powder (Breo Ellipta) gabapentin 800 mg tablet 800 mg PO TID 12/17/21 12/17/21 History losartan 50 mg tablet 50 mg PO DAILY 12/17/21 12/17/21 History metformin 500 mg tablet 500 mg PO QAM 12/17/21 12/17/21 History metoprolol succinate 25 mg 25 mg PO DAILY 12/17/21 12/17/21 History tablet,extended release 24 hr nitroglycerin 0.4 mg sublingual 0.4 mg SUBLINGUAL UD PRN 12/17/21 12/17/21 History tablet (Nitrostat) oxycodone 10 mg tablet 10 mg PO Q6H PRN 12/17/21 12/17/21 History pantoprazole 40 mg tablet,delayed 40 mg PO DAILYBB 12/17/21 12/17/21 History release pravastatin 80 mg tablet 80 mg PO HS 12/17/21 12/17/21 History Patient History Medical History (Updated 12/19/21 @ 12:03 by Skylar Travis MD, PhD) Anemia Anxiety and depression Chronic hyponatremia COPD (chronic obstructive pulmonary disease) Diabetes mellitus Diabetic neuropathy Diabetic retinopathy Dyslipidemia GERD (gastroesophageal reflux disease) Hypertension LBBB (left bundle branch block) Lumbar stenosis Paroxysmal atrial tachycardia PVD (peripheral vascular disease) Social History Smoking Status: Never smoker Hx Alcohol Use: Yes Alcohol type: beer Hx Substance Use: No Preferred Language: Maltese Communication Ability: Effective marital status: / Current Living Situation: Alone Feels Safe at Home: Yes Assistive Devices: Cane and Glasses Review of Systems Review of Systems: Review of Systems: See HPI for pertinent positives. All other 10 point review of systems are negative. Physical Exam Physical Exam: General: no acute distress and stated age Head: normocephalic, no masses, lesions, tenderness or abnormalities Eyes: conjunctiva are pink and non-injected, sclera clear Neck: supple, no adenopathy, no bruits, normal jugular venous pulse, no hepatojugular reflux Chest: normal shape and normal respiratory effort Lungs: clear to auscultation and percussion Cardiac Exam: - regular rate & rhythm, no murmurs gallops or rubs - normal S1, normal S2 Pulses: 2(+) throughout Abdomen: abdomen soft, non-tender, no abnormal masses and no hepatosplenomegaly Musculoskeletal: no gait disturbance, no joint inflammation, no deforming arthritis Extremities: no edema and no cyanosis Neuro: grossly normal exam Results & Data ([facility]) Vital Signs (Past 12 Hours) Vital Signs Pulse Pulse Resp BP Pulse Ox 12/19/21 06:39 110 H 28 H 99 12/19/21 05:00 62 19 100 12/19/21 04:30 61 23 95 12/19/21 04:00 60 20 120/76 93 12/19/21 03:30 61 15 95 12/19/21 03:00 62 17 133/71 95 12/19/21 02:30 63 14 93 12/19/21 02:00 63 17 125/54 L 95 12/19/21 01:30 64 16 93 12/19/21 01:00 128/51 L 12/19/21 00:30 62 18 95 12/19/21 00:00 64 15 130/54 L 94 12/18/21 23:33 63 18 108/31 L 95 12/18/21 23:30 65 94 12/18/21 23:00 65 23 149/57 H 95 12/18/21 22:30 67 20 91 12/18/21 22:00 65 19 129/64 96 Laboratory Results Laboratory Results - last 24 hr 12/18/21 12/18/21 12/18/21 09:27 09:27 09:27 WBC 29.82 H RBC 2.94 L Hgb 8.7 L Hct 25.7 L MCV 87.4 MCH 29.6 MCHC 33.9 RDW Std Deviation 44.2 RDW Coeff of Be 13.7 Plt Count 479 H MPV 9.4 Immature Gran % (Auto) 0.6 Neut % (Auto) 96.3 Lymph % (Auto) 1.4 [place] % (Auto) 1.7 Eos % (Auto) 0.0 Baso % (Auto) 0.0 Neut # (Auto) 28.68 H Lymph # (Auto) 0.42 L [place] # (Auto) 0.51 Eos # (Auto) 0.01 Baso # (Auto) 0.01 Immature Gran # (Auto) 0.19 H RBC Morphology Sodium 125 L Potassium Chloride Carbon Dioxide Anion Gap BUN Creatinine Est Cr Clr Drug Dosing Est GFR ( Amer) Est GFR (Non-Af Amer) BUN/Creatinine Ratio Glucose POC Glucose Calcium Phosphorus Magnesium Troponin I High Sens 47.3 H D Random Cortisol 12/18/21 12/18/21 12/18/21 09:34 11:48 15:28 WBC RBC Hgb Hct MCV MCH MCHC RDW Std Deviation RDW Coeff of Be Plt Count MPV Immature Gran % (Auto) Neut % (Auto) Lymph % (Auto) [place] % (Auto) Eos % (Auto) Baso % (Auto) Neut # (Auto) Lymph # (Auto) [place] # (Auto) Eos # (Auto) Baso # (Auto) Immature Gran # (Auto) RBC Morphology Sodium 124 L 128 L Potassium 3.5 Chloride 88 L Carbon Dioxide 28 Anion Gap 8 BUN 13 Creatinine 0.76 Est Cr Clr Drug Dosing 59.0 Est GFR ( Amer) 88.9 Est GFR (Non-Af Amer) 76.7 BUN/Creatinine Ratio 17.1 Glucose 205 H POC Glucose 209 H Calcium 8.3 L Phosphorus 2.9 Magnesium 2.1 Troponin I High Sens Random Cortisol 12/18/21 12/18/21 12/18/21 15:28 17:05 20:40 WBC RBC Hgb Hct MCV MCH MCHC RDW Std Deviation RDW Coeff of Be Plt Count MPV Immature Gran % (Auto) Neut % (Auto) Lymph % (Auto) [place] % (Auto) Eos % (Auto) Baso % (Auto) Neut # (Auto) Lymph # (Auto) [place] # (Auto) Eos # (Auto) Baso # (Auto) Immature Gran # (Auto) RBC Morphology Sodium Potassium Chloride Carbon Dioxide Anion Gap BUN Creatinine Est Cr Clr Drug Dosing Est GFR ( Amer) Est GFR (Non-Af Amer) BUN/Creatinine Ratio Glucose POC Glucose 142 H 133 H Calcium Phosphorus Magnesium Troponin I High Sens Random Cortisol 9.92 12/18/21 12/19/21 12/19/21 21:18 04:53 04:53 WBC 37.36 H* RBC 2.84 L Hgb 8.4 L Hct 25.5 L MCV 89.8 MCH 29.6 MCHC 32.9 RDW Std Deviation 46.5 H RDW Coeff of Be 14.0 Plt Count 580 H MPV 9.9 Immature Gran % (Auto) 0.6 Neut % (Auto) 90.6 Lymph % (Auto) 2.4 [place] % (Auto) 6.3 Eos % (Auto) 0.0 Baso % (Auto) 0.1 Neut # (Auto) 33.89 H Lymph # (Auto) 0.88 L [place] # (Auto) 2.34 H Eos # (Auto) 0.01 Baso # (Auto) 0.02 Immature Gran # (Auto) 0.22 H RBC Morphology Unremarkable Sodium 128 L 127 L Potassium 4.5 D Chloride 90 L Carbon Dioxide 32 Anion Gap 5 BUN 17 Creatinine 0.75 Est Cr Clr Drug Dosing 58.1 Est GFR ( Amer) 90.4 Est GFR (Non-Af Amer) 78.0 BUN/Creatinine Ratio 22.7 H Glucose 114 H POC Glucose Calcium 8.8 Phosphorus 3.3 Magnesium 2.3 Troponin I High Sens Random Cortisol 12/19/21 07:27 WBC RBC Hgb Hct MCV MCH MCHC RDW Std Deviation RDW Coeff of Be Plt Count MPV Immature Gran % (Auto) Neut % (Auto) Lymph % (Auto) [place] % (Auto) Eos % (Auto) Baso % (Auto) Neut # (Auto) Lymph # (Auto) [place] # (Auto) Eos # (Auto) Baso # (Auto) Immature Gran # (Auto) RBC Morphology Sodium Potassium Chloride Carbon Dioxide Anion Gap BUN Creatinine Est Cr Clr Drug Dosing Est GFR ( Amer) Est GFR (Non-Af Amer) BUN/Creatinine Ratio Glucose POC Glucose 131 H Calcium Phosphorus Magnesium Troponin I High Sens Random Cortisol Medications Administered Current Inpatient Medications Albuterol (Albut/Ipratrop 3mg/0.5mg Neb 3 Ml Vial) 3 ml NEB Q4R PRN; Protocol PRN Reason: Shortness Of Breath Or Wheezing Stop: 01/18/22 06:59 Last Admin: 12/19/21 06:37 Dose: 3 ml Documented by: Amiodarone HCl (Amiodarone 200 Mg Tab) 200 mg PO QAM VIVIAN Stop: 01/18/22 08:59 Last Admin: 12/19/21 08:06 Dose: 200 mg Documented by: Dextrose (Dextrose 50% 50 Ml Syringe) 25 - 50 ml IV UD PRN; Protocol PRN Reason: Hypoglycemia Protocol Stop: 01/17/22 03:28 Enoxaparin Sodium (Enoxaparin Inj 40 Mg/0.4 Ml Syr) 40 mg SQ QAM VIVIAN Stop: 01/17/22 13:59 Last Admin: 12/19/21 08:06 Dose: 40 mg Documented by: Glucagon (Glucagon For Inj 1 Mg Vial) 1 mg SQ UD PRN; Protocol PRN Reason: Hypoglycemia Protocol Stop: 01/17/22 03:28 Glucose (Glucose 10 Tabs/Tube) 4 - 8 tabs PO UD PRN; Protocol PRN Reason: Hypoglycemia Protocol Stop: 01/17/22 03:28 Glucose (Glucose 40% Gel 15 Gm Tube) 15 - 30 gm PO UD PRN; Protocol PRN Reason: Hypoglycemia Protocol Stop: 01/17/22 03:28 Doxycycline Hyclate 100 mg/ (Dextrose) 110 mls @ 50 mls/hr IV Q12H PENDING SALE TO [facility] Stop: 12/25/21 13:59 Last Infusion: 12/19/21 06:06 Dose: Infused Documented by: Acetaminophen (Ofirmev) 1,000 mg in 100 mls @ 400 mls/hr IV Q8H PRN; Protocol PRN Reason: pain or fever Stop: 12/21/21 04:29 Last Infusion: 12/18/21 14:54 Dose: Infused Documented by: Cefepime HCl 2,000 mg/ Syringe 20 mls @ 5 mls/min IV Q12H PENDING SALE TO [facility]; Protocol Stop: 12/25/21 15:59 Last Admin: 12/19/21 03:29 Dose: 5 mls/min Documented by: Insulin Aspart (Insulin Aspart Per Unit) 0 units SC ACHS PENDING SALE TO [facility] Stop: 01/17/22 20:59 Last Admin: 12/19/21 07:56 Dose: 3 units Documented by: Insulin Glargine (Insulin Glargine Solostar 100 Units/Ml 3 Ml Pen) 5 units SC DAILY PENDING SALE TO [facility] Stop: 01/18/22 08:59 Last Admin: 12/19/21 08:06 Dose: 5 units Documented by: Metoprolol Tartrate (Metoprolol Tartrate 25 Mg Tab) 25 mg PO BID VIVIAN Stop: 01/17/22 20:59 Last Admin: 12/19/21 08:07 Dose: 25 mg Documented by: Miscellaneous (Carbohydrates For Hypoglycemia ) 15 - 30 gm PO UD PRN PRN Reason: Hypoglycemia Protocol Stop: 01/17/22 03:28 Oxycodone HCl (Oxycodone Hcl Ir 5 Mg Tab (Immediate Release)) 5 mg PO Q6H PRN PRN Reason: Pain Stop: 01/01/22 20:43 Last Admin: 12/19/21 07:57 Dose: 5 mg Documented by: Pravastatin Sodium (Pravastatin Sod 40 Mg Tab) 80 mg NG HS VIVIAN Stop: 01/17/22 20:59 Last Admin: 12/18/21 20:42 Dose: 80 mg Documented by:
--- NOTE | 2021-12-19 10:43 | Nephrology Consultation ---
Date of Consultation December 19, 2021 Assessment & Plan (1) Chronic hyponatremia: exacerbation of chronic intermittent hyponatremia w/ OP sodium running often in low 130s. -cont to avoid nsaids for pain control and do control pain -goal sNa is 133 for tomorrow AM -maintain eukalemia > K of 4 is goal > check bmp q 12 hr > order in for 1600 check today -encourage protein shakes/protein intake -no fluid limit for now History of Present Illness Reason for Consultation: hyponatremia Requesting Physician: Dr Rowe Attending Physician: Shon Rowe MD History of Present Illness 76 y/o F whom I'm asked to see for hyponatremia was admitted here yesterday with acute hypoxic respiratory failure needing ventilation in the setting of atypical pneumonia, recent back surgery and had acute on chronic hyponatremia with presenting sodium 124 on 12/17 as 2300. Lowest serum sodium this admission was 122 at 0400 on 12/18; this am she is 127. She was started on 3% saline at admission but this was stopped by midday yesterday. PMH includes COPD, DM2, HTN, PVD, anxiety/depression, paroxysmal atrial tachycardia, LBBB, moderate on TTE GERD, HL. she does have chronic hyponatremia with sNa intermittently in low 130s on labs. sNa was 134 on , 129 on 12/15. s/p [facility] lumbar decompression admission from 12/07-12/12; then d/c to [facility]. She presented in severe respiratory distress with 02 sats in 80s on bipap and was intubated then by 12/[address] angio chest w/ BL groundglass opacities and no PE. covid and biofire negative; [id number] on presentation > 37 K today. Given concern for atypical PNA on doxycycline and cefepime. cardiology consulted for eval of new NSVT runs occurring after extubation She is having back pain and reports heavy coughing w/ po intake, particularly of fluids; no n/v, no confusion, some sore throat/hoarseness; no sob currently; did have constipation but this recently resolved. no edema. no chest pain/pressure. Allergies Allergy/AdvReac Type Severity Reaction Status Date / Time amoxicillin Allergy Unknown HANDS Verified 07/19/16 06:36 ITCHING Iodinated Contrast Media Allergy Unknown HIVES Verified 12/17/21 23:50 lisinopril Allergy Unknown COUGH Verified 12/17/21 23:50 sunflower oil Allergy Verified 12/19/21 10:22 sunflower seed Allergy Verified 12/19/21 10:22 SUNFLOWER SEEDS Allergy Unknown TONGUE Uncoded 12/17/21 23:50 SWELLING Home Medications Medication Instructions Recorded Confirmed Type acetaminophen 325 mg tablet 325 mg PO Q4 PRN 12/17/21 12/17/21 History albuterol sulfate 90 mcg/actuation 2 puff INHALATION Q6 PRN 12/17/21 12/17/21 History aerosol inhaler amiodarone 200 mg tablet 200 mg PO DAILY 12/17/21 12/17/21 History baclofen 5 mg tablet 5 mg PO TID 12/17/21 12/17/21 History cyanocobalamin (vitamin B-12) 2,000 mcg PO DAILY 12/17/21 12/17/21 History 1,000 mcg tablet (Vitamin B-12) docusate sodium 100 mg capsule 100 mg PO BID 12/17/21 12/17/21 History (Colace) duloxetine 60 mg capsule,delayed 60 mg PO DAILY 12/17/21 12/17/21 History release fluticasone furoate 200 1 ea INHALATION DAILY 12/17/21 12/17/21 History mcg-vilanterol 25 mcg/dose inhalation powder (Breo Ellipta) gabapentin 800 mg tablet 800 mg PO TID 12/17/21 12/17/21 History losartan 50 mg tablet 50 mg PO DAILY 12/17/21 12/17/21 History metformin 500 mg tablet 500 mg PO QAM 12/17/21 12/17/21 History metoprolol succinate 25 mg 25 mg PO DAILY 12/17/21 12/17/21 History tablet,extended release 24 hr nitroglycerin 0.4 mg sublingual 0.4 mg SUBLINGUAL UD PRN 12/17/21 12/17/21 Histo ry tablet (Nitrostat) oxycodone 10 mg tablet 10 mg PO Q6H PRN 12/17/21 12/17/21 History pantoprazole 40 mg tablet,delayed 40 mg PO DAILYBB 12/17/21 12/17/21 History release pravastatin 80 mg tablet 80 mg PO HS 12/17/21 12/17/21 History Patient History Medical History (Updated 12/19/21 @ 12:03 by Skylar Travis MD, PhD) Anemia Anxiety and depression Chronic hyponatremia COPD (chronic obstructive pulmonary disease) Diabetes mellitus Diabetic neuropathy Diabetic retinopathy Dyslipidemia GERD (gastroesophageal reflux disease) Hypertension LBBB (left bundle branch block) Lumbar stenosis Paroxysmal atrial tachycardia PVD (peripheral vascular disease) Social History Smoking Status: Never smoker Hx Alcohol Use: Yes Alcohol type: beer Hx Substance Use: No Preferred Language: Persian Communication Ability: Effective marital status: / Current Living Situation: Alone Feels Safe at Home: Yes Assistive Devices: Cane and Glasses Review of Systems Review of Systems: All systems reviewed & are unremarkable except as noted in HPI & below Results & Data ([facility]) Vital Signs (Past 12 Hours) Vital Signs Pulse Pulse Resp BP Pulse Ox 12/19/21 06:39 110 H 28 H 99 12/19/21 05:00 62 19 100 12/19/21 04:30 61 23 95 12/19/21 04:00 60 20 120/76 93 12/19/21 03:30 61 15 95 12/19/21 03:00 62 17 133/71 95 12/19/21 02:30 63 14 93 12/19/21 02:00 63 17 125/54 L 95 12/19/21 01:30 64 16 93 12/19/21 01:00 128/51 L 12/19/21 00:30 62 18 95 12/19/21 00:00 64 15 130/54 L 94 12/18/21 23:33 63 18 108/31 L 95 12/18/21 23:30 65 94 12/18/21 23:00 65 23 149/57 H 95 12/18/21 22:30 67 20 91 Laboratory Results 12/19/21 04:53 12/19/21 04:53 serum osm 12/17/21 2300 > 260 urine osm 12/18/21 0500> 393 ; Alva <10 UA same time > sg 1045; trace ketones, al indices negative Diagnostic Findings CT angio chest FINDINGS: Tip of endotracheal tube is 2.7 cm above the germain. Tip of nasogastric tube is within the distal stomach. Mild compression fracture of the superior endplate of T3 is likely subacute to chronic. Postoperative findings within the spine are partially imaged, including skin malina. This exam is significantly compromised by respiratory motion. No central pulmonary emboli are identified. Remainder of pulmonary arteries are suboptimally assessed. There is no pericardial effusion. Size of the heart is within normal limits. No pneumothorax or pleural effusion is noted. Extensive alveolar opacities within the lungs are noted. These are more pronounced within the lower lobes. There is no cavitation. Large amount of poorly formed stool within visualized portions of the colon is noted. The gallbladder surgically absent. IMPRESSION: 1. Exam significantly compromised by respiratory motion. No pulmonary emboli identified although segmental and subsegmental pulmonary arteries suboptimally assessed. 2. Extensive airspace opacities throughout the lungs. The findings favor an infectious process. Aspiration pneumonitis is within the differential but considered less likely. 3. Satisfactory positioning of the endotracheal and nasogastric tubes. CXR yesterday 1. Satisfactory positioning of the endotracheal and nasogastric tubes. 2. Persistent bilateral airspace opacities suggestive of an infectious process.
[2021-12-19] MEDS: GABAPENTIN 300 MG CAP PO SCH ×2 (15:14→20:28)
[2021-12-19] MEDS: DULoxetine HCL 60 MG CAP PO SCH (15:15)
[2021-12-19] MEDS: DOCUSATE SODIUM 100 MG CAP PO SCH ×2 (15:15→20:27)
[2021-12-19] MEDS: FLUTICASONE/VILANTEROL 200/25MCG 14 PUFFS/INHALER INH SCH (15:15)
--- NOTE | 2021-12-19 15:47 | Hospitalist Progress Note ---
Date of Service December 19, 2021 Assessment & Plan (1) Acute hypoxemic respiratory failure: Plan: Acute hypoxic respiratory failure Possible pneumonia/Aspiration Asthma/COPD Exacerbation --CTA:Exam significantly compromised by respiratory motion. No pulmonary emboli identified although segmental and subsegmental pulmonary arteries suboptimally assessed. Extensive airspace opacities throughout the lungs. The findings favor an infectious process. Aspiration pneumonitis is within the differential but considered less likely. Satisfactory positioning of the endotracheal and nasogastric tubes. --Bio fire and COVID-19 negative S/P Extubation 12/18/21 Appreciate Billing And Insurance Coordinator help Continue supplemental oxygen as needed Continue doxycycline, cefepime Aspiration precautions Continue home inhalers Planned for FEES tomorrow Appreciate Speech therapy Eval Currently on 2 L supplemental oxygen Wean off of supplemental oxygen as able Possible Sepsis Sources: Pulmonary as above On antibiotics as above Check lumbar x-ray given recent lumbar surgery Continue antibiotics as above Urine culture negative Blood cultures negative to date Leukocytosis worsened: likely steroids contributing Paroxysmal atrial tachycardia NSVT New left bundle branch block Elevated troponin H/O PSVT, PVD Moderate aortic stenosis Cardiology on board Continue metoprolol 25 mg twice daily, amiodarone Monitor electrolytes Elevated Troponin Likely Type II WA due to demand ischemia Troponin levels trended down Hyponatremia Sodium 127 today Appreciate nephrology input Continue to monitor sodium levels Hypertension Continue current medications Resume losartan as able Hyperlipidemia Resume statin as able DM II Hold p.o. meds HbA1C:6.3 last November 25, 2021 Continue insulin sliding scale Acute on chronic hyponatremia Monitor sodium levels Received hypertonic saline H/O Recent back surgery Postop anemia Gabapentin resumed at lower dose Hold baclofen for now DVT Px: Lovenox SQ Code Status Full code Admission and Anticipated Discharge Date Admission Date: December 18, 2021 Subjective Patient is seen and examined at bedside States feeling well today Dyspnea better today Reports minimal cough Back pain is controlled Offers no other complaints On 2 L supplemental oxygen Review of Systems Review of Systems: All systems reviewed & are unremarkable except as noted in Subjective Physical Exam Physical Exam: Physical Exam: Vitals signs as noted above General Appearance:Moderately built and nourished, no distress Head: normocephalic, Atraumatic Eyes: normal inspection, EOMI Neck: supple, Trachea midline Respiratory/Chest: Decreased breath sounds, CTA, No accessory muscle use Cardiovascular: S1, S2, No murmur Abdomen/GI:Soft, Non tender, Bowel sounds present Extremities/Musculoskeletal:normal inspection, no edema Neurologic/Psych:AAOX3, grossly no focal neurological deficits Skin: normal color, warm Results & Data Results & Data ([facility]) Vital Signs (Past 12 Hours) Vital Signs Temp Pulse Pulse Resp BP BP Pulse Ox 12/19/21 15:00 59 L 12/19/21 13:00 61 12/19/21 12:46 37.0 C 60 18 146/98 H 100 12/19/21 11:30 63 100 12/19/21 11:00 61 17 100 12/19/21 10:30 61 15 100 12/19/21 10:00 61 21 100 12/19/21 09:30 61 19 100 12/19/21 09:00 63 17 99 12/19/21 08:30 66 15 100 12/19/21 08:03 36.9 C 65 11 L 134/92 12/19/21 08:00 65 16 100 12/19/21 07:30 71 14 99 12/19/21 07:00 66 20 99 12/19/21 06:39 110 H 28 H 99 12/19/21 06:30 71 17 100 12/19/21 06:00 62 23 100 12/19/21 05:30 64 27 H 100 12/19/21 05:00 62 19 100 12/19/21 04:30 61 23 95 12/19/21 04:00 60 20 120/76 93 Laboratory Results Short CBC 12/19/21 Range/Units 04:53 WBC 37.36 H* (4.8-10.8) K/uL Hgb 8.4 L (12.0-16.0) g/dL Hct 25.5 L (37-47) % Plt Count 580 H (130-400) K/uL BMP 12/18/21 12/18/21 12/19/21 15:28 21:18 04:53 Sodium 128 L 128 L 127 L Potassium 4.5 D Chloride 90 L Carbon Dioxide 32 BUN 17 Creatinine 0.75 Glucose 114 H Calcium 8.8
--- NOTE | 2021-12-19 16:15 | XRay Report ---
XR lumbar spine 2-3V CLINICAL HISTORY: recent back surger, fall TECHNIQUE: 2 views of the lumbar spine were obtained. Comparison: None available at the time of this dictation. FINDINGS: Posterior spinal fixation hardware spans L2-L4. Surgical malina are seen. No periarticular lucency o r hardware fracture is seen. Degenerative changes are seen in the lumbar spine. The alignment is norm al. IMPRESSION: No evidence of hardware fracture, osseous fracture or dislocation. ACT 112: Negative or not required by law. Electronically signed by: Wiliam Sepulveda M.D. 12/19/2021 4:14 PM
[2021-12-19 18:23] LABS: BUN Creatinine Ratio 23.3 (10-20); Calcium 8.8 mg/dl (8.5-10.1); Creatinine Clr Calc Pharmacy 59.7 ml/min; Est GFR (African American) 93.4 ml/min; Est GFR (Non-African American) 80.6 ml/min; Potassium 3.8 mmol/L (3.5-5.1)
[2021-12-19] MEDS: PRAVASTATIN SOD 40 MG TAB NG SCH (20:27)
[2021-12-20] MEDS: DOXYCYCLINE HYCLATE 100 MG in DEXTROSE 5% 100 ML IV SCH (01:32)
[2021-12-20] MEDS: CEFEPIME 2,000 MG in SYRINGE 0 ML IV SCH ×2 (03:39→15:17)
[2021-12-20] MEDS: PANTOprazole 40 MG TAB PO SCH (06:18)
[2021-12-20] MEDS: INSULIN ASPART PER UNIT SC SCH ×4 (08:19→21:08)
[2021-12-20] MEDS: ENOXAPARIN INJ 40 MG/0.4 ML SYR SQ SCH (08:20)
[2021-12-20] MEDS: FLUTICASONE/VILANTEROL 200/25MCG 14 PUFFS/INHALER INH SCH (08:20)
[2021-12-20] MEDS: METOPROLOL TARTRATE 25 MG TAB PO SCH ×2 (08:20→21:06)
[2021-12-20] MEDS: DOCUSATE SODIUM 100 MG CAP PO SCH ×2 (08:20→21:08)
[2021-12-20] MEDS: GABAPENTIN 300 MG CAP PO SCH ×3 (08:20→21:07)
[2021-12-20] MEDS: DULoxetine HCL 60 MG CAP PO SCH (08:20)
[2021-12-20] MEDS: AMIODARONE 200 MG TAB PO SCH (08:20)
[2021-12-20] MEDS: oxyCODONE HCL IR 5 MG TAB (IMMEDIATE RELEASE) PO PRN (08:34)
[2021-12-20 08:42] LABS: Hematocrit (blood only) 25.9 % (37-47); Hemoglobin 8.4 g/dL (12.0-16.0); Mean Corpuscular Hemoglobin 29.1 pg (25-34); Mean Corpuscular Hgb Conc 32.4 g/dL (32-36); Mean Corpuscular Volume 89.6 fL (80-100); Mean Platelet Volume 9.4 fL (7.4-10.4); Platelet Count 641 K/uL (130-400); RDW Coefficient of Variation 14.1 % (11.5-14.5); RDW Standard Deviation 46.3 fL (36.4-46.3); Red Blood Count 2.89 M/uL (4.2-5.4); White Blood Count 29.02 K/uL (4.8-10.8)
[2021-12-20 08:59] LABS: Basophils # (auto) 0.02 K/uL (0-0.2); Basophils % (auto) 0.1 %; Eosinophils # (auto) 0.22 K/uL (0-0.5); Eosinophils % (auto) 0.8 %; Immature Granulocytes # (auto) 0.15 K/uL (0.00-0.02); Immature Granulocytes % (auto) 0.5 %; Lymphocytes # (auto) 0.95 K/uL (1.2-3.4); Lymphocytes % (auto) 3.3 %; Monocytes # (auto) 1.97 K/uL (0.11-0.59); Monocytes % (auto) 6.8 %; Neutrophils # (auto) 25.71 K/uL (1.4-6.5); Neutrophils % (auto) 88.5 %
[2021-12-20 09:12] LABS: BUN Creatinine Ratio 23.8 (10-20); Creatinine Clr Calc Pharmacy 70.1 ml/min; Est GFR (African American) 101.7 ml/min; Est GFR (Non-African American) 87.7 ml/min; Magnesium 1.7 mg/dl (1.7-2.4); Phosphorus 2.8 mg/dl (2.5-4.9); Potassium 4.6 mmol/L (3.5-5.1)
[2021-12-20] MEDS: INSULIN GLARGINE SOLOSTAR 100 UNITS/ML 3 ML PEN SC SCH (09:37)
--- NOTE | 2021-12-20 09:58 | Nephrology Progress Note ---
Date of Service December 20, 2021 Assessment & Plan (1) Chronic hyponatremia: Plan: exacerbation of chronic intermittent hyponatremia w/ OP sodium running often in low 130s. responded to 3% saline; not floridly overloaded on exam; initial urine studies appeared most consistent with volume depletion (ketonuria, very concentrated urine) but pt w/ both acute and chronic lung disease and ongoing pain so suspect/anticipate more of an SIADH type picture. minimal po intake recorded by staff and reported by pt. -cont to avoid nsaids for pain control and do control pain -goal sNa is 133 for tomorrow AM -maintain eukalemia > K of 4 is goal > check bmp q 12 hr > order in for 1600 check today -encourage protein shakes/protein intake -no fluid limit for now; she is hardly taking po per I/O so may need to consider -strict I/O -will start lasix 20 mEq IV bid -continue hunter for now Admission and Anticipated Discharge Date Admission Date: December 18, 2021 Subjective no interval clinical events that she reports. had swallow eval today > tells me she is still coughing a lot w/ po intake and generally w/ poor appetite and poor po; still thirsty; breathing better; some pain back still Review of Systems Review of Systems: All systems reviewed & are unremarkable except as noted in Subjective Physical Exam Constitutional: well developed and well nourished; no acute distress Eyes: EOM intact bilaterally ENMT: Ears: no external ear abnormality Nose: no external nose abnormality Mouth: + dry oral mucous membranes Neck: no nuchal rigidity Respiratory: normal respiratory effort Auscultation: + diminished lung sounds Cardiovascular: RRR, no murmur, no edema Gastrointestinal (Abdomen): Inspection/Auscultation: normal bowel sounds Percussion/Palpation: abdomen soft; abdomen nontender Musculoskeletal: Extremities: strength 5/5 throughout Skin: no rashes, warm and dry Neurologic: malone, fluent speech, no tremor Psychiatric: Orientation: oriented x 3 Results & Data ([facility]) Vital Signs (Past 12 Hours) Vital Signs Temp Pulse Pulse Resp BP Pulse Ox 12/20/21 07:32 64 12/20/21 07:00 37 C 64 22 158/77 H 97 12/20/21 03:42 37.3 C 59 L 20 146/77 H 94 12/20/21 00:00 59 L 12/19/21 23:52 37.1 C 59 L 19 140/70 99 Laboratory Results 12/20/21 08:08 12/20/21 08:08
[2021-12-20] MEDS: FUROSEMIDE INJ 20 MG/2 ML VIAL IV SCH ×2 (10:10→21:06)
--- NOTE | 2021-12-20 11:08 | Cardiology Progress Note ---
Date of Service December 20, 2021 Assessment & Plan (1) Acute hypoxemic respiratory failure: (2) LBBB (left bundle branch block): (3) Paroxysmal atrial tachycardia: (4) Anemia: (5) Diabetes mellitus: Plan: The patient was given an extra dose of IV Lasix this morning which I think is appropriate. Otherwise she is stable. Admission and Anticipated Discharge Date Admission Date: December 18, 2021 Subjective The patient is sitting comfortably in the chair. No new cardiac complaints. Review of Systems Review of Systems: Review of Systems: See HPI for pertinent positives. All other 10 point review of systems are negative. Physical Exam Physical Exam: General: no acute distress and stated age Head: normocephalic, no masses, lesions, tenderness or abnormalities Eyes: conjunctiva are pink and non-injected, sclera clear Neck: supple, no adenopathy, no bruits, normal jugular venous pulse, no hepatojugular reflux Chest: normal shape and normal respiratory effort Lungs: Crackles at the bases bilaterally Cardiac Exam: - regular rate & rhythm, no murmurs gallops or rubs - normal S1, normal S2 Pulses: 2(+) throughout Abdomen: abdomen soft, non-tender, no abnormal masses and no hepatosplenomegaly Musculoskeletal: no gait disturbance, no joint inflammation, no deforming arthritis Extremities: no edema and no cyanosis Neuro: grossly normal exam Results & Data ([facility]) Vital Signs (Past 12 Hours) Vital Signs Temp Pulse Pulse Resp BP Pulse Ox 12/20/21 07:32 64 12/20/21 07:00 37 C 64 22 158/77 H 97 12/20/21 03:42 37.3 C 59 L 20 146/77 H 94 12/20/21 00:00 59 L 12/19/21 23:52 37.1 C 59 L 19 140/70 99 Laboratory Results Laboratory Results - last 24 hr 12/19/21 12/19/21 12/19/21 11:24 16:22 17:32 WBC RBC Hgb Hct MCV MCH MCHC RDW Std Deviation RDW Coeff of Be Plt Count MPV Immature Gran % (Auto) Neut % (Auto) Lymph % (Auto) [place] % (Auto) Eos % (Auto) Baso % (Auto) Neut # (Auto) Lymph # (Auto) [place] # (Auto) Eos # (Auto) Baso # (Auto) Immature Gran # (Auto) Sodium 128 L Potassium 3.8 Chloride 90 L Carbon Dioxide 31 Anion Gap 7 BUN 17 Creatinine 0.73 Est Cr Clr Drug Dosing 59.7 Est GFR ( Amer) 93.4 Est GFR (Non-Af Amer) 80.6 BUN/Creatinine Ratio 23.3 H Glucose 98 POC Glucose 104 H 74 Calcium 8.8 Phosphorus Magnesium Procalcitonin 12/19/21 12/20/21 12/20/21 20:12 07:25 08:08 WBC RBC Hgb Hct MCV MCH MCHC RDW Std Deviation RDW Coeff of Be Plt Count MPV Immature Gran % (Auto) Neut % (Auto) Lymph % (Auto) [place] % (Auto) Eos % (Auto) Baso % (Auto) Neut # (Auto) Lymph # (Auto) [place] # (Auto) Eos # (Auto) Baso # (Auto) Immature Gran # (Auto) Sodium Potassium Chloride Carbon Dioxide Anion Gap BUN Creatinine Est Cr Clr Drug Dosing Est GFR ( Amer) Est GFR (Non-Af Amer) BUN/Creatinine Ratio Glucose POC Glucose 114 H 107 H Calcium Phosphorus Magnesium Procalcitonin 2.17 H 12/20/21 12/20/21 08:08 08:08 WBC 29.02 H RBC 2.89 L Hgb 8.4 L Hct 25.9 L MCV 89.6 MCH 29.1 MCHC 32.4 RDW Std Deviation 46.3 RDW Coeff of Be 14.1 Plt Count 641 H MPV 9.4 Immature Gran % (Auto) 0.5 Neut % (Auto) 88.5 Lymph % (Auto) 3.3 [place] % (Auto) 6.8 Eos % (Auto) 0.8 Baso % (Auto) 0.1 Neut # (Auto) 25.71 H Lymph # (Auto) 0.95 L [place] # (Auto) 1.97 H Eos # (Auto) 0.22 Baso # (Auto) 0.02 Immature Gran # (Auto) 0.15 H Sodium 127 L Potassium 4.6 D Chloride 90 L Carbon Dioxide 32 Anion Gap 5 BUN 15 Creatinine 0.63 Est Cr Clr Drug Dosing 70.1 Est GFR ( Amer) 101.7 Est GFR (Non-Af Amer) 87.7 BUN/Creatinine Ratio 23.8 H Glucose 105 H POC Glucose Calcium 9.0 Phosphorus 2.8 Magnesium 1.7 Procalcitonin Medications Administered Current Inpatient Medications Albuterol (Albut/Ipratrop 3mg/0.5mg Neb 3 Ml Vial) 3 ml NEB Q4R PRN; Protocol PRN Reason: Shortness Of Breath Or Wheezing Stop: 01/18/22 06:59 Last Admin: 12/19/21 06:37 Dose: 3 ml Documented by: Amiodarone HCl (Amiodarone 200 Mg Tab) 200 mg PO QAM [facility] Stop: 01/18/22 08:59 Last Admin: 12/20/21 08:20 Dose: 200 mg Documented by: Dextrose (Dextrose 50% 50 Ml Syringe) 25 - 50 ml IV UD PRN; Protocol PRN Reason: Hypoglycemia Protocol Stop: 01/17/22 03:28 Docusate Sodium (Docusate Sodium 100 Mg Cap) 100 mg PO BID [facility] Stop: 01/18/22 13:29 Last Admin: 12/20/21 08:20 Dose: 100 mg Documented by: Doxycycline Hyclate (Doxycycline Hyclate 100 Mg Cap) 100 mg PO BID [facility] Stop: 12/25/21 09:01 Duloxetine HCl (Duloxetine Hcl 60 Mg Cap) 60 mg PO DAILY [facility] Stop: 01/18/22 13:29 Last Admin: 12/20/21 08:20 Dose: 60 mg Documented by: Enoxaparin Sodium (Enoxaparin Inj 40 Mg/0.4 Ml Syr) 40 mg SQ QAM [facility] Stop: 01/17/22 13:59 Last Admin: 12/20/21 08:20 Dose: 40 mg Documented by: Fluticasone/Vilanterol (Fluticasone/Vilanterol 200/25mcg 14 Puffs/Inhaler) 1 puffs INH DAILY [facility] Stop: 01/18/22 13:29 Last Admin: 12/20/21 08:20 Dose: 1 puffs Documented by: Furosemide (Furosemide Inj 20 Mg/2 Ml Vial) 20 mg IV BID [facility] Stop: 01/19/22 10:14 Last Admin: 12/20/21 10:10 Dose: 20 mg Documented by: Gabapentin (Gabapentin 300 Mg Cap) 300 mg PO TID [facility] Stop: 01/18/22 13:59 Last Admin: 12/20/21 08:20 Dose: 300 mg Documented by: Glucagon (Glucagon For Inj 1 Mg Vial) 1 mg SQ UD PRN; Protocol PRN Reason: Hypoglycemia Protocol Stop: 01/17/22 03:28 Glucose (Glucose 10 Tabs/Tube) 4 - 8 tabs PO UD PRN; Protocol PRN Reason: Hypoglycemia Protocol Stop: 01/17/22 03:28 Glucose (Glucose 40% Gel 15 Gm Tube) 15 - 30 gm PO UD PRN; Protocol PRN Reason: Hypoglycemia Protocol Stop: 01/17/22 03:28 Acetaminophen (Ofirmev) 1,000 mg in 100 mls @ 400 mls/hr IV Q8H PRN; Protocol PRN Reason: pain or fever Stop: 12/21/21 04:29 Last Infusion: 12/18/21 14:54 Dose: Infused Documented by: Cefepime HCl 2,000 mg/ Syringe 20 mls @ 5 mls/min IV Q12H [facility]; Protocol Stop: 12/25/21 15:59 Last Admin: 12/20/21 03:39 Dose: 5 mls/min Documented by: Insulin Aspart (Insulin Aspart Per Unit) 0 units SC ACHS [facility] Stop: 01/17/22 20:59 Last Admin: 12/20/21 08:19 Dose: Not Given Documented by: Insulin Glargine (Insulin Glargine Solostar 100 Units/Ml 3 Ml Pen) 5 units SC DAILY [facility] Stop: 01/18/22 08:59 Last Admin: 12/20/21 09:37 Dose: 5 units Documented by: Metoprolol Tartrate (Metoprolol Tartrate 25 Mg Tab) 25 mg PO BID [facility] Stop: 01/17/22 20:59 Last Admin: 12/20/21 08:20 Dose: 25 mg Documented by: Miscellaneous (Carbohydrates For Hypoglycemia ) 15 - 30 gm PO UD PRN PRN Reason: Hypoglycemia Protocol Stop: 01/17/22 03:28 Oxycodone HCl (Oxycodone Hcl Ir 5 Mg Tab (Immediate Release)) 5 mg PO Q6H PRN PRN Reason: Pain Stop: 01/01/22 20:43 Last Admin: 12/20/21 08:34 Dose: 5 mg Documented by: Pantoprazole Sodium (Pantoprazole 40 Mg Tab) 40 mg PO DAILYBB [facility] Stop: 01/19/22 06:29 Last Admin: 12/20/21 06:18 Dose: 40 mg Documented by: Pravastatin Sodium (Pravastatin Sod 40 Mg Tab) 80 mg NG HS [facility] Stop: 01/17/22 20:59 Last Admin: 12/19/21 20:27 Dose: 80 mg Documented by:
--- NOTE | 2021-12-20 15:15 | Hospitalist Progress Note ---
Date of Service December 20, 2021 Assessment & Plan (1) Acute hypoxemic respiratory failure: Plan: Acute hypoxic respiratory failure Possible pneumonia/Aspiration Asthma/COPD Exacerbation --CTA:Exam significantly compromised by respiratory motion. No pulmonary emboli identified although segmental and subsegmental pulmonary arteries suboptimally assessed. Extensive airspace opacities throughout the lungs. The findings favor an infectious process. Aspiration pneumonitis is within the differential but considered less likely. Satisfactory positioning of the endotracheal and nasogastric tubes. --Bio fire and COVID-19 negative S/P Extubation 12/18/21 Appreciate Nurse Substance Abuse help Continue supplemental oxygen as needed Continue doxycycline, cefepime Aspiration precautions Continue home inhalers Had FEES Study today Appreciate Speech therapy Eval Currently on 2 L supplemental oxygen Wean off of supplemental oxygen as able 2 step prior to discharge Possible Sepsis Sources: Pulmonary as above On antibiotics as above Check lumbar x-ray given recent lumbar surgery Continue antibiotics as above Urine culture negative Blood cultures negative to date Leukocytosis likely steroids contributed Leukocytosis trending down Paroxysmal atrial tachycardia NSVT New left bundle branch block Elevated troponin H/O PSVT, PVD Moderate aortic stenosis Cardiology on board Continue metoprolol 25 mg twice daily, amiodarone Monitor electrolytes Elevated Troponin Likely Type II DC due to demand ischemia Troponin levels trended down Hypertension Continue current medications Resume losartan Hyperlipidemia on statin DM II Hold p.o. meds HbA1C:6.3 last November 25, 2021 Continue insulin sliding scale Acute on chronic hyponatremia Received hypertonic saline Sodium 127 today Appreciate nephrology input Continue to monitor sodium levels IV Lasix BID as per Nephrology H/O Recent back surgery Postop anemia Gabapentin resumed at lower dose Hold baclofen for now DVT Px: Lovenox SQ Code Status Full code Admission and Anticipated Discharge Date Admission Date: December 18, 2021 Subjective Patient is seen and examined at bedside Had FEES study today Sitting in chair during my encounter States having minimal cough Also reports nausea Dyspnea much improved today Back pain is controlled Review of Systems Review of Systems: All systems reviewed & are unremarkable except as noted in Subjective Physical Exam Physical Exam: Physical Exam: Vitals signs as noted above General Appearance:Moderately built and nourished, no distress Head: normocephalic, Atraumatic Eyes: normal inspection, EOMI Neck: supple, Trachea midline Respiratory/Chest: Decreased breath sounds, CTA, No accessory muscle use Cardiovascular: S1, S2, No murmur Abdomen/GI:Soft, Non tender, Bowel sounds present Extremities/Musculoskeletal:normal inspection, no edema Neurologic/Psych:AAOX3, grossly no focal neurological deficits Skin: normal color, warm Results & Data Results & Data ([facility]) Vital Signs (Past 12 Hours) Vital Signs Temp Pulse Pulse Resp BP Pulse Ox Pulse Ox 12/20/21 11:24 98 12/20/21 07:32 64 12/20/21 07:00 37 C 64 22 158/77 H 97 12/20/21 03:42 37.3 C 59 L 20 146/77 H 94 Laboratory Results Short CBC 12/20/21 Range/Units 08:08 WBC 29.02 H (4.8-10.8) K/uL Hgb 8.4 L (12.0-16.0) g/dL Hct 25.9 L (37-47) % Plt Count 641 H (130-400) K/uL BMP 12/19/21 12/20/21 17:32 08:08 Sodium 128 L 127 L Potassium 3.8 4.6 D Chloride 90 L 90 L Carbon Dioxide 31 32 BUN 17 15 Creatinine 0.73 0.63 Glucose 98 105 H Calcium 8.8 9.0
[2021-12-20] MEDS: LOSARTAN POTASSIUM 50 MG TAB PO SCH (16:24)
[2021-12-20 16:47] LABS: BUN Creatinine Ratio 21.9 (10-20); Calcium 8.5 mg/dl (8.5-10.1); Est GFR (African American) 101.2 ml/min; Est GFR (Non-African American) 87.3 ml/min; Potassium 3.4 mmol/L (3.5-5.1)
[2021-12-20] MEDS: POTASSIUM CHLORIDE CRTAB 20 MEQ TABCR PO SCH ×2 (19:40→21:08)
[2021-12-20] MEDS: DOXYCYCLINE HYCLATE 100 MG CAP PO SCH (21:07)
[2021-12-20] MEDS: PRAVASTATIN SOD 40 MG TAB NG SCH (21:08)
[2021-12-21] MEDS: CEFEPIME 2,000 MG in SYRINGE 0 ML IV SCH ×2 (03:50→15:34)
[2021-12-21] MEDS: oxyCODONE HCL IR 5 MG TAB (IMMEDIATE RELEASE) PO PRN ×2 (03:51→08:34)
[2021-12-21] MEDS: PANTOprazole 40 MG TAB PO SCH (06:10)
[2021-12-21 06:40] LABS: Basophils # (auto) 0.02 K/uL (0-0.2); Basophils % (auto) 0.1 %; Eosinophils # (auto) 0.26 K/uL (0-0.5); Eosinophils % (auto) 1.5 %; Hemoglobin 8.1 g/dL (12.0-16.0); Immature Granulocytes # (auto) 0.07 K/uL (0.00-0.02); Immature Granulocytes % (auto) 0.4 %; Lymphocytes # (auto) 1.24 K/uL (1.2-3.4); Lymphocytes % (auto) 7.1 %; Mean Corpuscular Hgb Conc 33.8 g/dL (32-36); Mean Corpuscular Volume 88.9 fL (80-100); Mean Platelet Volume 9.3 fL (7.4-10.4); Monocytes # (auto) 1.52 K/uL (0.11-0.59); Monocytes % (auto) 8.7 %; Neutrophils % (auto) 82.2 %; Platelet Count 619 K/uL (130-400); RDW Coefficient of Variation 13.6 % (11.5-14.5); RDW Standard Deviation 44.4 fL (36.4-46.3); White Blood Count 17.41 K/uL (4.8-10.8)
[2021-12-21 06:42] LABS: Calcium 8.4 mg/dl (8.5-10.1); Creatinine Clr Calc Pharmacy 69.2 ml/min; Est GFR (African American) 102.2 ml/min; Est GFR (Non-African American) 88.2 ml/min; Potassium 3.5 mmol/L (3.5-5.1)
[2021-12-21] MEDS: POTASSIUM CHLORIDE CRTAB 20 MEQ TABCR PO SCH ×3 (08:17→20:12)
[2021-12-21] MEDS: DOCUSATE SODIUM 100 MG CAP PO SCH ×2 (08:17→20:09)
[2021-12-21] MEDS: DOXYCYCLINE HYCLATE 100 MG CAP PO SCH ×2 (08:23→20:11)
[2021-12-21] MEDS: GABAPENTIN 300 MG CAP PO SCH ×3 (08:23→20:11)
[2021-12-21] MEDS: FLUTICASONE/VILANTEROL 200/25MCG 14 PUFFS/INHALER INH SCH (08:24)
[2021-12-21] MEDS: DULoxetine HCL 60 MG CAP PO SCH (08:24)
[2021-12-21] MEDS: FUROSEMIDE INJ 20 MG/2 ML VIAL IV SCH ×2 (08:24→20:11)
[2021-12-21] MEDS: LOSARTAN POTASSIUM 50 MG TAB PO SCH (08:24)
[2021-12-21] MEDS: ENOXAPARIN INJ 40 MG/0.4 ML SYR SQ SCH (08:25)
[2021-12-21] MEDS: METOPROLOL TARTRATE 25 MG TAB PO SCH ×2 (08:25→20:11)
[2021-12-21] MEDS: INSULIN GLARGINE SOLOSTAR 100 UNITS/ML 3 ML PEN SC SCH (08:26)
[2021-12-21] MEDS: AMIODARONE 200 MG TAB PO SCH (08:26)
[2021-12-21] MEDS: INSULIN ASPART PER UNIT SC SCH ×4 (08:33→20:18)
--- NOTE | 2021-12-21 10:04 | Cardiology Progress Note ---
Date of Service December 21, 2021 Assessment & Plan (1) Acute hypoxemic respiratory failure: (2) LBBB (left bundle branch block): (3) Paroxysmal atrial tachycardia: (4) Anemia: (5) Diabetes mellitus: Plan: The patient was given an extra dose of IV Lasix this morning which I think is appropriate. Otherwise she is stable. Admission and Anticipated Discharge Date Admission Date: December 18, 2021 Subjective The patient had an uneventful night. Starting physical therapy. Review of Systems Review of Systems: Review of Systems: See HPI for pertinent positives. All other 10 point review of systems are negative. Physical Exam Physical Exam: General: no acute distress and stated age Head: normocephalic, no masses, lesions, tenderness or abnormalities Eyes: conjunctiva are pink and non-injected, sclera clear Neck: supple, no adenopathy, no bruits, normal jugular venous pulse, no hepatojugular reflux Chest: normal shape and normal respiratory effort Lungs: Crackles at the bases bilaterally Cardiac Exam: - regular rate & rhythm, no murmurs gallops or rubs - normal S1, normal S2 Pulses: 2(+) throughout Abdomen: abdomen soft, non-tender, no abnormal masses and no hepatosplenomegaly Musculoskeletal: no gait disturbance, no joint inflammation, no deforming arthritis Extremities: no edema and no cyanosis Neuro: grossly normal exam Results & Data ([facility]) Vital Signs (Past 12 Hours) Vital Signs Temp Pulse Pulse Resp BP Pulse Ox 12/21/21 03:00 36.8 C 59 L 16 138/52 L 92 12/21/21 00:00 65 12/20/21 23:00 37.0 C 62 18 140/47 L 93
--- NOTE | 2021-12-21 10:09 | Cardiology Progress Note ---
Date of Service December 21, 2021 Assessment & Plan (1) Acute hypoxemic respiratory failure: (2) LBBB (left bundle branch block): (3) Paroxysmal atrial tachycardia: (4) Anemia: (5) Diabetes mellitus: Plan: The patient is clinically stable and doing well. From a cardiac standpoint I think her IV Lasix can be discontinued however, will leave that up to nephrology. Her hemoglobin has been trending down and is 8.1 today. She may benefit from blood transfusion which I think will hasten her recovery. Admission and Anticipated Discharge Date Admission Date: December 18, 2021 Subjective The patient had an uneventful night. Starting physical therapy today. Review of Systems Review of Systems: Review of Systems: See HPI for pertinent positives. All other 10 point review of systems are negative. Physical Exam Physical Exam: General: no acute distress and stated age Head: normocephalic, no masses, lesions, tenderness or abnormalities Eyes: conjunctiva are pink and non-injected, sclera clear Neck: supple, no adenopathy, no bruits, normal jugular venous pulse, no hepatojugular reflux Chest: normal shape and normal respiratory effort Lungs: clear to auscultation and percussion Cardiac Exam: - regular rate & rhythm, no murmurs gallops or rubs - normal S1, normal S2 Pulses: 2(+) throughout Abdomen: abdomen soft, non-tender, no abnormal masses and no hepatosplenomegaly Musculoskeletal: no gait disturbance, no joint inflammation, no deforming arthritis Extremities: no edema and no cyanosis Neuro: grossly normal exam Results & Data ([facility]) Vital Signs (Past 12 Hours) Vital Signs Temp Pulse Pulse Resp BP Pulse Ox 12/21/21 03:00 36.8 C 59 L 16 138/52 L 92 12/21/21 00:00 65 12/20/21 23:00 37.0 C 62 18 140/47 L 93 Laboratory Results Laboratory Results - last 24 hr 12/20/21 12/20/21 12/20/21 11:45 15:59 16:18 WBC RBC Hgb Hct MCV MCH MCHC RDW Std Deviation RDW Coeff of Be Plt Count MPV Immature Gran % (Auto) Neut % (Auto) Lymph % (Auto) [place] % (Auto) Eos % (Auto) Baso % (Auto) Neut # (Auto) Lymph # (Auto) [place] # (Auto) Eos # (Auto) Baso # (Auto) Immature Gran # (Auto) Sodium 127 L Potassium 3.4 L D Chloride 89 L Carbon Dioxide 31 Anion Gap 7 BUN 14 Creatinine 0.64 Est Cr Clr Drug Dosing 69.0 Est GFR ( Amer) 101.2 Est GFR (Non-Af Amer) 87.3 BUN/Creatinine Ratio 21.9 H Glucose 87 POC Glucose 97 87 Calcium 8.5 12/20/21 12/21/21 12/21/21 20:09 05:56 05:56 WBC 17.41 H D RBC 2.70 L Hgb 8.1 L Hct 24.0 L MCV 88.9 MCH 30.0 MCHC 33.8 RDW Std Deviation 44.4 RDW Coeff of Be 13.6 Plt Count 619 H MPV 9.3 Immature Gran % (Auto) 0.4 Neut % (Auto) 82.2 Lymph % (Auto) 7.1 [place] % (Auto) 8.7 Eos % (Auto) 1.5 Baso % (Auto) 0.1 Neut # (Auto) 14.30 H Lymph # (Auto) 1.24 [place] # (Auto) 1.52 H Eos # (Auto) 0.26 Baso # (Auto) 0.02 Immature Gran # (Auto) 0.07 H Sodium 129 L Potassium 3.5 Chloride 89 L Carbon Dioxide 32 Anion Gap 8 BUN 13 Creatinine 0.62 Est Cr Clr Drug Dosing 69.2 Est GFR ( Amer) 102.2 Est GFR (Non-Af Amer) 88.2 BUN/Creatinine Ratio 21.0 H Glucose 90 POC Glucose 144 H Calcium 8.4 L 12/21/21 07:29 WBC RBC Hgb Hct MCV MCH MCHC RDW Std Deviation RDW Coeff of Be Plt Count MPV Immature Gran % (Auto) Neut % (Auto) Lymph % (Auto) [place] % (Auto) Eos % (Auto) Baso % (Auto) Neut # (Auto) Lymph # (Auto) [place] # (Auto) Eos # (Auto) Baso # (Auto) Immature Gran # (Auto) Sodium Potassium Chloride Carbon Dioxide Anion Gap BUN Creatinine Est Cr Clr Drug Dosing Est GFR ( Amer) Est GFR (Non-Af Amer) BUN/Creatinine Ratio Glucose POC Glucose 123 H Calcium Medications Administered Current Inpatient Medications Albuterol (Albut/Ipratrop 3mg/0.5mg Neb 3 Ml Vial) 3 ml NEB Q4R PRN; Protocol PRN Reason: Shortness Of Breath Or Wheezing Stop: 01/18/22 06:59 Last Admin: 12/19/21 06:37 Dose: 3 ml Documented by: Amiodarone HCl (Amiodarone 200 Mg Tab) 200 mg PO QAM [facility] Stop: 01/18/22 08:59 Last Admin: 12/21/21 08:26 Dose: 200 mg Documented by: Dextrose (Dextrose 50% 50 Ml Syringe) 25 - 50 ml IV UD PRN; Protocol PRN Reason: Hypoglycemia Protocol Stop: 01/17/22 03:28 Docusate Sodium (Docusate Sodium 100 Mg Cap) 100 mg PO BID [facility] Stop: 01/18/22 13:29 Last Admin: 12/21/21 08:17 Dose: Not Given Documented by: Doxycycline Hyclate (Doxycycline Hyclate 100 Mg Cap) 100 mg PO BID [facility] Stop: 12/25/21 09:01 Last Admin: 12/21/21 08:23 Dose: 100 mg Documented by: Duloxetine HCl (Duloxetine Hcl 60 Mg Cap) 60 mg PO DAILY [facility] Stop: 01/18/22 13:29 Last Admin: 12/21/21 08:24 Dose: 60 mg Documented by: Enoxaparin Sodium (Enoxaparin Inj 40 Mg/0.4 Ml Syr) 40 mg SQ QAM [facility] Stop: 01/17/22 13:59 Last Admin: 12/21/21 08:25 Dose: 40 mg Documented by: Fluticasone/Vilanterol (Fluticasone/Vilanterol 200/25mcg 14 Puffs/Inhaler) 1 puffs INH DAILY [facility] Stop: 01/18/22 13:29 Last Admin: 12/21/21 08:24 Dose: 1 puffs Documented by: Furosemide (Furosemide Inj 20 Mg/2 Ml Vial) 20 mg IV BID [facility] Stop: 01/19/22 10:14 Last Admin: 12/21/21 08:24 Dose: 20 mg Documented by: Gabapentin (Gabapentin 300 Mg Cap) 300 mg PO TID [facility] Stop: 01/18/22 13:59 Last Admin: 12/21/21 08:23 Dose: 300 mg Documented by: Glucagon (Glucagon For Inj 1 Mg Vial) 1 mg SQ UD PRN; Protocol PRN Reason: Hypoglycemia Protocol Stop: 01/17/22 03:28 Glucose (Glucose 10 Tabs/Tube) 4 - 8 tabs PO UD PRN; Protocol PRN Reason: Hypoglycemia Protocol Stop: 01/17/22 03:28 Glucose (Glucose 40% Gel 15 Gm Tube) 15 - 30 gm PO UD PRN; Protocol PRN Reason: Hypoglycemia Protocol Stop: 01/17/22 03:28 Cefepime HCl 2,000 mg/ Syringe 20 mls @ 5 mls/min IV Q12H [facility]; Protocol Stop: 12/25/21 15:59 Last Admin: 12/21/21 03:50 Dose: 5 mls/min Documented by: Insulin Aspart (Insulin Aspart Per Unit) 0 units SC ACHS [facility] Stop: 01/17/22 20:59 Last Admin: 12/21/21 08:33 Dose: 3 units Documented by: Insulin Glargine (Insulin Glargine Solostar 100 Units/Ml 3 Ml Pen) 5 units SC DAILY [facility] Stop: 01/18/22 08:59 Last Admin: 12/21/21 08:26 Dose: 5 units Documented by: Losartan Potassium (Losartan Potassium 50 Mg Tab) 50 mg PO DAILY [facility] Stop: 01/19/22 15:29 Last Admin: 12/21/21 08:24 Dose: 50 mg Documented by: Metoprolol Tartrate (Metoprolol Tartrate 25 Mg Tab) 25 mg PO BID [facility] Stop: 01/17/22 20:59 Last Admin: 12/21/21 08:25 Dose: 25 mg Documented by: Miscellaneous (Carbohydrates For Hypoglycemia ) 15 - 30 gm PO UD PRN PRN Reason: Hypoglycemia Protocol Stop: 01/17/22 03:28 Oxycodone HCl (Oxycodone Hcl Ir 5 Mg Tab (Immediate Release)) 5 mg PO Q6H PRN PRN Reason: Pain Stop: 01/01/22 20:43 Last Admin: 12/21/21 08:34 Dose: 5 mg Documented by: Pantoprazole Sodium (Pantoprazole 40 Mg Tab) 40 mg PO DAILYBB [facility] Stop: 01/19/22 06:29 Last Admin: 12/21/21 06:10 Dose: 40 mg Documented by: Potassium Chloride (Potassium Chloride Crtab 20 Meq Tabcr) 20 meq PO TID [facility] Stop: 01/19/22 18:29 Last Admin: 12/21/21 08:17 Dose: 20 meq Documented by: Pravastatin Sodium (Pravastatin Sod 40 Mg Tab) 80 mg NG HS [facility] Stop: 01/17/22 20:59 Last Admin: 12/20/21 21:08 Dose: 80 mg Documented by:
[2021-12-21] MEDS ORDERED: POTASSIUM CHLORIDE CRTAB 20 MEQ TABCR PO ONE (14:20)
--- NOTE | 2021-12-21 14:20 | Nephrology Progress Note ---
Date of Service December 21, 2021 Assessment & Plan (1) Chronic hyponatremia: Plan: exacerbation of chronic intermittent hyponatremia w/ OP sodium running often in low 130s. presented 12/17 w/ sNa 124, lowest 122 on 12/18 AM labs; responded to 3% saline at admission; not floridly overloaded on exam; initial urine studies appeared most consistent with volume depletion (ketonuria, very concentrated urine) but pt w/ both acute and chronic lung disease and ongoing pain so suspect/anticipate more of an SIADH type picture. minimal po intake recorded by staff and reported by pt. -cont to avoid nsaids for pain control and do control pain -goal sNa is 133 for tomorrow AM -maintain eukalemia > K of 4 is goal > on 20 mEq tid K >> will give extra 40 mEq po x 1 > check bmp q 12 hr > order in for 1600 check today -encourage protein shakes/protein intake -no fluid limit for now; she is hardly taking po per I/O so may need to consider -strict I/O -continue lasix 20 mEq IV bid -would d/c hunter if not already done Admission and Anticipated Discharge Date Admission Date: December 18, 2021 Subjective seen on rounds at 0810; feeling better; ate good breakfast w/ help from dietiican. notes slihtly increased WOB w/ getting up to chair; no edema; no voiding c/o Review of Systems Review of Systems: All systems reviewed & are unremarkable except as noted in Subjective Physical Exam Constitutional: well developed and well nourished; no acute distress Eyes: EOM intact bilaterally ENMT: Ears: no external ear abnormality Nose: no external nose abnormality Mouth: + dry oral mucous membranes Neck: no nuchal rigidity Respiratory: normal respiratory effort Auscultation: + diminished lung sounds Cardiovascular: RRR, no murmur, no edema Gastrointestinal (Abdomen): Inspection/Auscultation: normal bowel sounds Percussion/Palpation: abdomen soft; abdomen nontender Musculoskeletal: Extremities: strength 5/5 throughout Skin: no rashes, warm and dry Neurologic: malone, fluent speech, no tremor Psychiatric: Orientation: oriented x 3 Results & Data ([facility]) Vital Signs (Past 12 Hours) Vital Signs Temp Pulse Pulse Resp BP Pulse Ox 12/21/21 11:59 36.5 C 58 L 18 123/45 L 96 12/21/21 08:00 36.7 C 61 57 L 20 118/61 96 12/21/21 03:00 36.8 C 59 L 16 138/52 L 92 Laboratory Results 12/21/21 05:56 12/21/21 05:56
[2021-12-21 16:48] LABS: BUN Creatinine Ratio 27.9 (10-20); Calcium 8.6 mg/dl (8.5-10.1); Creatinine Clr Calc Pharmacy 70.3 ml/min; Est GFR (African American) 102.8 ml/min; Est GFR (Non-African American) 88.7 ml/min; Potassium 3.9 mmol/L (3.5-5.1)
--- NOTE | 2021-12-21 17:54 | Hospitalist Progress Note ---
Date of Service December 21, 2021 Assessment & Plan (1) Acute hypoxemic respiratory failure: Plan: per Dr. Rowe's notes with addendum: Acute hypoxic respiratory failure Possible pneumonia/Aspiration Asthma/COPD Exacerbation --CTA:Exam significantly compromised by respiratory motion. No pulmonary emboli identified although segmental and subsegmental pulmonary arteries suboptimally assessed. Extensive airspace opacities throughout the lungs. The findings favor an infectious process. Aspiration pneumonitis is within the differential but considered less likely. Satisfactory positioning of the endotracheal and nasogastric tubes. --Bio fire and COVID-19 negative S/P Extubation 12/18/21 Appreciate Set Illustrator help Continue supplemental oxygen as needed Continue doxycycline, cefepime Aspiration precautions Continue home inhalers Had FEES Study today Appreciate Speech therapy Eval Currently on 2 L supplemental oxygen Wean off of supplemental oxygen as able 2 step prior to discharge 12/21 continue Cefepime + Doxycycline currently on room air will need 2 step exercise test Possible Sepsis Sources: Pulmonary as above On antibiotics as above Check lumbar x-ray given recent lumbar surgery Continue antibiotics as above Urine culture negative Blood cultures negative to date Leukocytosis likely steroids contributed Leukocytosis trending down 12/21 WBC continues to trend down Paroxysmal atrial tachycardia NSVT New left bundle branch block Elevated troponin H/O PSVT, PVD Moderate aortic stenosis Cardiology on board Continue metoprolol 25 mg twice daily, amiodarone Monitor electrolytes 12/21 stable continue Metoprolol, Amiodarone Elevated Troponin Likely Type II NM due to demand ischemia Troponin levels trended down Hypertension Continue current medications Resumed losartan Hyperlipidemia on statin DM II Hold p.o. meds HbA1C:6.3 last November 25, 2021 Continue insulin sliding scale Acute on chronic hyponatremia Received hypertonic saline Sodium 127 today Appreciate nephrology input Continue to monitor sodium levels IV Lasix BID as per Nephrology 12/21 Na improved from 127- 129 monitor H/O Recent back surgery Postop anemia Gabapentin resumed at lower dose Hold baclofen for now 12/21 Hg 8.1 asymptomatic will transfuse once Hg < 8 or if patient symptomatic DVT Px: Lovenox SQ Code Status Full code plan of care discussed with patient in detail and at length all questions answered she is understanding, agreeable, comfortable with the plan of care Admission and Anticipated Discharge Date Admission Date: December 18, 2021 Subjective ff up for acute respiratory failure, etc seen resting in bed, comfortable states she feels tired otherwise feels ok no chest pain, dyspnea, palpitations, dizziness ambulating in her room, and hallway outside her room with no problems no other symptoms Review of Systems Review of Systems: all noted and negative except for above Physical Exam Physical Exam: General- oriented x 3, not in distress, speaks in sentences with no effort or accessory muscle use Head- atraumatic Eyes- PERRL, EOMI, anicteric ENT- oropharynx clear Neck- supple, no JVD, no adenopathy, no thyromegaly; carotids +2/2, no bruits appreciated Lungs- clear to auscultation bilaterally, no rales/wheezes Heart- normal rate, regular rhythm; no murmur, no gallop, no rub appreciated Abdomen- normal bowel sounds, nondistended, soft, nontender, no masses or hepatosplenomegaly Extremities- no pretibial edema, no calf tenderness; peripheral pulses intact Neuro- alert, oriented x 3; CN 2-12 grossly intact; motor 5/5 bilaterally;sensation 100% on all extremities; no other gross focal neurologic deficits Skin- warm & dry Results & Data Results & Data ([facility]) Vital Signs (Past 12 Hours) Vital Signs Temp Pulse Pulse Resp BP Pulse Ox 12/21/21 16:11 37 C 57 L 16 153/54 H 96 12/21/21 16:00 58 L 12/21/21 11:59 36.5 C 58 L 18 123/45 L 96 12/21/21 08:00 36.7 C 61 57 L 20 118/61 96
[2021-12-21] MEDS: PRAVASTATIN SOD 40 MG TAB NG SCH (20:12)
[2021-12-22] MEDS: CEFEPIME 2,000 MG in SYRINGE 0 ML IV SCH ×2 (04:25→17:11)
[2021-12-22] MEDS ORDERED: LORazepam 0.5 MG TAB PO STA (04:33)
[2021-12-22] MEDS: PANTOprazole 40 MG TAB PO SCH (04:53)
[2021-12-22] MEDS: INSULIN GLARGINE SOLOSTAR 100 UNITS/ML 3 ML PEN SC SCH (07:50)
[2021-12-22] MEDS: INSULIN ASPART PER UNIT SC SCH ×4 (07:50→20:29)
[2021-12-22] MEDS: POTASSIUM CHLORIDE CRTAB 20 MEQ TABCR PO SCH ×3 (07:57→20:27)
[2021-12-22] MEDS: ENOXAPARIN INJ 40 MG/0.4 ML SYR SQ SCH (07:57)
[2021-12-22] MEDS: FLUTICASONE/VILANTEROL 200/25MCG 14 PUFFS/INHALER INH SCH (07:57)
[2021-12-22] MEDS: LOSARTAN POTASSIUM 50 MG TAB PO SCH (07:58)
[2021-12-22] MEDS: FUROSEMIDE INJ 20 MG/2 ML VIAL IV SCH (07:58)
[2021-12-22] MEDS: GABAPENTIN 300 MG CAP PO SCH ×3 (07:58→20:28)
[2021-12-22] MEDS: METOPROLOL TARTRATE 25 MG TAB PO SCH ×2 (07:58→20:28)
[2021-12-22] MEDS: DOXYCYCLINE HYCLATE 100 MG CAP PO SCH ×2 (07:59→20:28)
[2021-12-22] MEDS: DOCUSATE SODIUM 100 MG CAP PO SCH ×2 (07:59→20:28)
[2021-12-22] MEDS: DULoxetine HCL 60 MG CAP PO SCH (07:59)
[2021-12-22] MEDS: AMIODARONE 200 MG TAB PO SCH (07:59)
[2021-12-22 09:57] LABS: Basophils # (auto) 0.02 K/uL (0-0.2); Basophils % (auto) 0.1 %; Eosinophils # (auto) 0.21 K/uL (0-0.5); Eosinophils % (auto) 1.5 %; Hematocrit (blood only) 27.9 % (37-47); Hemoglobin 9.2 g/dL (12.0-16.0); Immature Granulocytes # (auto) 0.11 K/uL (0.00-0.02); Immature Granulocytes % (auto) 0.8 %; Mean Corpuscular Hemoglobin 29.3 pg (25-34); Mean Corpuscular Volume 88.9 fL (80-100); Mean Platelet Volume 9.4 fL (7.4-10.4); Monocytes # (auto) 1.79 K/uL (0.11-0.59); Monocytes % (auto) 12.5 %; Neutrophils # (auto) 11.18 K/uL (1.4-6.5); Neutrophils % (auto) 78.1 %; Platelet Count 755 K/uL (130-400); RDW Coefficient of Variation 13.7 % (11.5-14.5); RDW Standard Deviation 44.6 fL (36.4-46.3); Red Blood Count 3.14 M/uL (4.2-5.4); White Blood Count 14.31 K/uL (4.8-10.8)
[2021-12-22 10:05] LABS: BUN Creatinine Ratio 20.8 (10-20); Creatinine Clr Calc Pharmacy 58.8 ml/min; Est GFR (African American) 94.9 ml/min; Est GFR (Non-African American) 81.9 ml/min; Potassium 3.7 mmol/L (3.5-5.1)
--- NOTE | 2021-12-22 13:46 | Nephrology Progress Note ---
Date of Service December 22, 2021 Assessment & Plan (1) Chronic hyponatremia: Plan: exacerbation of chronic intermittent hyponatremia w/ OP sodium running often in low 130s. presented 12/17 w/ sNa 124, lowest 122 on 12/18 AM labs; responded to 3% saline at admission; not floridly overloaded on exam; initial urine studies appeared most consistent with volume depletion (ketonuria, very concentrated urine) but pt w/ both acute and chronic lung disease and ongoing pain so suspect/anticipate more of an SIADH type picture. minimal po intake recorded by staff and reported by pt. sodium dropped overnight > not responding to lasix -cont to avoid nsaids for pain control and do control pain -goal sNa is 128 -maintain eukalemia > K of 4 is goal > on 20 mEq tid K >> continue standing K > check bmp q 12 hr > order in for 1600 check today along with repeat urine osm/Alva and sOsm -encourage protein shakes/protein intake -no fluid limit for now; she is hardly taking po per I/O so may need to consider -strict I/O -stopped lasix this am Admission and Anticipated Discharge Date Admission Date: December 18, 2021 Subjective working at better po intake and at doing PT today. no sobv, no n/v; still struggling to maintain po. stable neuropathy Review of Systems Review of Systems: All systems reviewed & are unremarkable except as noted in Subjective Physical Exam Constitutional: well developed and well nourished; no acute distress Eyes: EOM intact bilaterally ENMT: Ears: no external ear abnormality Nose: no external nose abnormality Mouth: + dry oral mucous membranes Neck: no nuchal rigidity Respiratory: normal respiratory effort Auscultation: + diminished lung sounds Cardiovascular: RRR, no murmur, no edema Gastrointestinal (Abdomen): Inspection/Auscultation: normal bowel sounds Percussion/Palpation: abdomen soft; abdomen nontender Musculoskeletal: Extremities: strength 5/5 throughout Skin: no rashes, warm and dry Neurologic: hyperesthesias BLE, malone, fluent speech, no tremor Psychiatric: Orientation: oriented x 3 Results & Data ([facility]) Vital Signs (Past 12 Hours) Vital Signs Temp Pulse Pulse Resp BP Pulse Ox 12/22/21 11:43 36.8 C 61 18 129/57 L 95 12/22/21 07:20 59 L 12/22/21 07:13 37 C 64 16 150/70 H 95 12/22/21 03:04 37.1 C 56 L 22 156/52 H 95 Laboratory Results 12/22/21 09:25 12/22/21 09:25
--- NOTE | 2021-12-22 16:09 | Hospitalist Progress Note ---
Date of Service December 22, 2021 Assessment & Plan (1) Acute hypoxemic respiratory failure: Plan: per Dr. Rowe's notes with addendum: Acute hypoxic respiratory failure Possible pneumonia/Aspiration Asthma/COPD Exacerbation --CTA:Exam significantly compromised by respiratory motion. No pulmonary emboli identified although segmental and subsegmental pulmonary arteries suboptimally assessed. Extensive airspace opacities throughout the lungs. The findings favor an infectious process. Aspiration pneumonitis is within the differential but considered less likely. Satisfactory positioning of the endotracheal and nasogastric tubes. --Bio fire and COVID-19 negative S/P Extubation 12/18/21 Appreciate Farm Mortgage Agent help Continue supplemental oxygen as needed Continue doxycycline, cefepime Aspiration precautions Continue home inhalers Had FEES Study today Appreciate Speech therapy Eval Currently on 2 L supplemental oxygen Wean off of supplemental oxygen as able 2 step prior to discharge 12/22 continue Cefepime + Doxycycline currently on room air will need 2 step exercise test Possible Sepsis Sources: Pulmonary as above On antibiotics as above Check lumbar x-ray given recent lumbar surgery Continue antibiotics as above Urine culture negative Blood cultures negative to date Leukocytosis likely steroids contributed Leukocytosis trending down 12/22 WBC continues to trend down Paroxysmal atrial tachycardia NSVT New left bundle branch block Elevated troponin H/O PSVT, PVD Moderate aortic stenosis Cardiology on board Continue metoprolol 25 mg twice daily, amiodarone Monitor electrolytes stable continue Metoprolol, Amiodarone Elevated Troponin Likely Type II SC due to demand ischemia Troponin levels trended down Hypertension Continue current medications Resumed losartan Hyperlipidemia on statin DM II Hold p.o. meds HbA1C:6.3 last November 25, 2021 Continue insulin sliding scale Acute on chronic hyponatremia Received hypertonic saline Sodium 127 today Appreciate nephrology input Continue to monitor sodium levels IV Lasix BID as per Nephrology 12/22 Na trending down again today 125 lasix discontinued Nephro on board H/O Recent back surgery Postop anemia Gabapentin resumed at lower dose Hold baclofen for now 12/22 Hg improved to 9 will transfuse once Hg < 8 or if patient symptomatic DVT Px: Lovenox SQ Code Status Full code plan of care discussed with patient in detail and at length all questions answered she is understanding, agreeable, comfortable with the plan of care Admission and Anticipated Discharge Date Admission Date: December 18, 2021 Subjective ff up for respiratory failure, etc seen resting in bed, comfortable states she feels ok overall no chest pain, dyspnea, palpitations, dizziness no problems with ambulating no other symptoms Review of Systems Review of Systems: all noted and negative except for above Physical Exam Physical Exam: General- oriented x 3, not in distress, speaks in sentences with no effort or accessory muscle use Eyes- anicteric Neck- no JVD Lungs- clear BS bilaterally, no rales/wheezes Heart- normal rate, regular rhythm; no murmurs Abdomen- normal bowel sounds, nondistended, soft, nontender Extremities- no pretibial edema, no calf tenderness Back- incision healing well malina in place no discharge Neuro- alert, oriented x 3; no gross focal neurologic deficits Skin- warm & dry Results & Data Results & Data ([facility]) Vital Signs (Past 12 Hours) Vital Signs Temp Pulse Pulse Resp BP Pulse Ox 12/22/21 14:54 63 12/22/21 11:43 36.8 C 61 18 129/57 L 95 12/22/21 07:20 59 L 12/22/21 07:13 37 C 64 16 150/70 H 95 all noted and reviewed including below
[2021-12-22 16:12] LABS: BUN Creatinine Ratio 23.9 (10-20); Calcium 8.8 mg/dl (8.5-10.1); Creatinine Clr Calc Pharmacy 63.2 ml/min; Est GFR (African American) 99.7 ml/min; Potassium 3.7 mmol/L (3.5-5.1)
[2021-12-22] MEDS: PRAVASTATIN SOD 40 MG TAB NG SCH (20:27)
[2021-12-23] MEDS: oxyCODONE HCL IR 5 MG TAB (IMMEDIATE RELEASE) PO PRN (02:19)
[2021-12-23] MEDS: CEFEPIME 2,000 MG in SYRINGE 0 ML IV SCH ×3 (03:57→20:42)
[2021-12-23] MEDS: PANTOprazole 40 MG TAB PO SCH (05:13)
[2021-12-23 06:30] LABS: Basophils # (auto) 0.03 K/uL (0-0.2); Basophils % (auto) 0.2 %; Eosinophils # (auto) 0.44 K/uL (0-0.5); Eosinophils % (auto) 3.2 %; Hematocrit (blood only) 25.3 % (37-47); Hemoglobin 8.7 g/dL (12.0-16.0); Immature Granulocytes # (auto) 0.16 K/uL (0.00-0.02); Immature Granulocytes % (auto) 1.2 %; Lymphocytes # (auto) 1.93 K/uL (1.2-3.4); Lymphocytes % (auto) 13.9 %; Mean Corpuscular Hgb Conc 34.4 g/dL (32-36); Mean Corpuscular Volume 87.2 fL (80-100); Mean Platelet Volume 9.4 fL (7.4-10.4); Monocytes # (auto) 2.28 K/uL (0.11-0.59); Monocytes % (auto) 16.5 %; Platelet Count 714 K/uL (130-400); RDW Coefficient of Variation 13.5 % (11.5-14.5); White Blood Count 13.84 K/uL (4.8-10.8)
[2021-12-23 06:57] LABS: BUN Creatinine Ratio 23.8 (10-20); Calcium 8.7 mg/dl (8.5-10.1); Creatinine Clr Calc Pharmacy 67.2 ml/min; Est GFR (African American) 101.7 ml/min; Est GFR (Non-African American) 87.7 ml/min; Potassium 4.3 mmol/L (3.5-5.1)
[2021-12-23] MEDS: INSULIN ASPART PER UNIT SC SCH ×4 (07:45→20:56)
[2021-12-23] MEDS: INSULIN GLARGINE SOLOSTAR 100 UNITS/ML 3 ML PEN SC SCH (07:46)
[2021-12-23] MEDS: DOCUSATE SODIUM 100 MG CAP PO SCH ×2 (07:47→20:48)
[2021-12-23] MEDS: ENOXAPARIN INJ 40 MG/0.4 ML SYR SQ SCH (07:48)
[2021-12-23] MEDS: POTASSIUM CHLORIDE CRTAB 20 MEQ TABCR PO SCH ×3 (07:49→20:50)
[2021-12-23] MEDS: FLUTICASONE/VILANTEROL 200/25MCG 14 PUFFS/INHALER INH SCH (07:52)
[2021-12-23] MEDS: LOSARTAN POTASSIUM 50 MG TAB PO SCH (07:52)
[2021-12-23] MEDS: METOPROLOL TARTRATE 25 MG TAB PO SCH ×2 (07:52→20:49)
[2021-12-23] MEDS: GABAPENTIN 300 MG CAP PO SCH ×3 (07:53→20:49)
[2021-12-23] MEDS: AMIODARONE 200 MG TAB PO SCH (07:53)
[2021-12-23] MEDS: DULoxetine HCL 60 MG CAP PO SCH (07:53)
[2021-12-23] MEDS: DOXYCYCLINE HYCLATE 100 MG CAP PO SCH ×2 (07:53→20:48)
[2021-12-23] MEDS ORDERED: LORazepam 0.5 MG TAB PO STA (10:54)
[2021-12-23] MEDS ORDERED: ALUMINUM/MAGNESIUM SUSP 30 ML UDC PO STA (10:54)
[2021-12-23] MEDS ORDERED: LORazepam 0.5 MG TAB PO PRN ×2 (10:54→17:57)
[2021-12-23] MEDS ORDERED: ALUMINUM/MAGNESIUM SUSP 30 ML UDC PO PRN (10:54)
--- NOTE | 2021-12-23 16:04 | Hospitalist Progress Note ---
Date of Service December 23, 2021 Assessment & Plan (1) Acute hypoxemic respiratory failure: Plan: per Dr. Rowe's notes with addendum: Acute hypoxic respiratory failure Possible pneumonia/Aspiration Asthma/COPD Exacerbation --CTA:Exam significantly compromised by respiratory motion. No pulmonary emboli identified although segmental and subsegmental pulmonary arteries suboptimally assessed. Extensive airspace opacities throughout the lungs. The findings favor an infectious process. Aspiration pneumonitis is within the differential but considered less likely. Satisfactory positioning of the endotracheal and nasogastric tubes. --Bio fire and COVID-19 negative S/P Extubation 12/18/21 Appreciate Isotope Technician help Continue supplemental oxygen as needed Continue doxycycline, cefepime Aspiration precautions Continue home inhalers Had FEES Study today Appreciate Speech therapy Eval Currently on 2 L supplemental oxygen Wean off of supplemental oxygen as able 2 step prior to discharge 12/23 continue Cefepime + Doxycycline currently on room air will need 2 step exercise test Possible Sepsis Sources: Pulmonary as above On antibiotics as above Check lumbar x-ray given recent lumbar surgery Continue antibiotics as above Urine culture negative Blood cultures negative to date Leukocytosis likely steroids contributed Leukocytosis trending down 12/23 WBC trending down, today 13,000 Paroxysmal atrial tachycardia NSVT New left bundle branch block Elevated troponin H/O PSVT, PVD Moderate aortic stenosis Cardiology on board Continue metoprolol 25 mg twice daily, amiodarone Monitor electrolytes 12/23 stable continue Metoprolol, Amiodarone Elevated Troponin Likely Type II OR due to demand ischemia Troponin levels trended down Hypertension Continue current medications Resumed losartan Hyperlipidemia on statin DM II Hold p.o. meds HbA1C:6.3 last November 25, 2021 Continue insulin sliding scale Acute on chronic hyponatremia Received hypertonic saline Sodium 127 today Appreciate nephrology input Continue to monitor sodium levels IV Lasix BID as per Nephrology 12/23 Still at 124 lasix discontinued Nephro on board H/O Recent back surgery Postop anemia Gabapentin resumed at lower dose Hold baclofen for now 12/23 Hg improved to 9 will transfuse once Hg < 8 or if patient symptomatic DVT Px: Lovenox SQ Code Status Full code plan of care discussed with patient in detail and at length all questions answered she is understanding, agreeable, comfortable with the plan of care Admission and Anticipated Discharge Date Admission Date: December 18, 2021 Subjective Follow-up for respiratory failure, etc. Seen resting in bed, not in distress Was having nausea earlier, attributes to feeling anxious about returning to rehab Also reports sensation of acid reflux, no abdominal pain no chest pain, dyspnea, palpitations, dizziness No other symptoms Review of Systems Review of Systems: all noted and negative except for above Physical Exam Physical Exam: General- oriented x 3, not in distress, speaks in sentences with no effort or accessory muscle use Eyes- anicteric Neck- no JVD Lungs- clear breath sounds, no crackles or wheezing bilaterally Heart- normal rate, regular rhythm; no murmurs Abdomen- normal bowel sounds, nondistended, soft, no tenderness Extremities- no pretibial edema, no calf tenderness Neuro- alert, oriented x 3; no gross focal neurologic deficits Skin- warm & dry Results & Data Results & Data ([facility]) Vital Signs (Past 12 Hours) Vital Signs Temp Pulse Pulse Resp BP Pulse Ox 12/23/21 15:08 37.1 C 64 22 134/48 L 95 12/23/21 14:52 61 12/23/21 11:43 36.8 C 60 22 123/41 L 93 12/23/21 08:00 58 L 12/23/21 07:50 36.5 C 60 22 129/55 L 92 all noted and reviewed including below
[2021-12-23 16:44] LABS: BUN Creatinine Ratio 22.1 (10-20); Calcium 9.1 mg/dl (8.5-10.1); Creatinine Clr Calc Pharmacy 62.2 ml/min; Est GFR (African American) 99.2 ml/min; Est GFR (Non-African American) 85.6 ml/min; Potassium 4.4 mmol/L (3.5-5.1)
--- NOTE | 2021-12-23 17:17 | Nephrology Progress Note ---
Date of Service December 23, 2021 Assessment & Plan (1) Chronic hyponatremia: Plan: further exacerbation of chronic intermittent hyponatremia w/ OP sodium running often in low 130s. presented 12/17 w/ sNa 124, lowest 122 on 12/18 AM labs; responded to 3% saline at admission; not floridly overloaded on exam; initial urine studies appeared most consistent with volume depletion (ketonuria, very concentrated urine) but pt w/ both acute and chronic lung disease and ongoing pain so suspect/anticipate more of an SIADH type picture. minimal po intake recorded by staff and reported by pt. >>>>>>>>>>sodium dropped overnight and through the day; now down to 123 > not responding to lasix, which was last dosed 12/22 20 mg IV in am and prior to that had lasix 20 mg iv bid starting 12/20 AM (had 5 doses total and one 40 mg dose on 12/18) -cont to avoid nsaids for pain control and do control pain -goal sNa is 128 -maintain eukalemia > K of 4 is goal > on 20 mEq tid K >> continue standing K > check bmp q 12 hr > order in for 1600 check today along with repeat urine osm/Alva and sOsm -encourage protein shakes/protein intake -no fluid limit for now; she is hardly taking po per I/O so may need to consider -strict I/O >>>>recheck CXR ordered > if no edema, recommend try 250 mL NS bolus >await serum and urine osms ordered stat yesterday PM; if hyponatremia is sole issue holding her here, recommend consideration of transfer to facility where we can get lab results same day care coordinated w/ Dr Marroquin Admission and Anticipated Discharge Date Admission Date: December 18, 2021 Subjective more n/v past few days; struggling to take po; pain well controlled; no sob. Review of Systems Review of Systems: All systems reviewed & are unremarkable except as noted in Subjective Physical Exam Constitutional: well developed and well nourished; no acute distress Eyes: EOM intact bilaterally ENMT: Ears: no external ear abnormality Nose: no external nose abnormality Mouth: + dry oral mucous membranes Neck: no nuchal rigidity Respiratory: normal respiratory effort Auscultation: + diminished lung sounds Cardiovascular: RRR, no murmur, no edema Gastrointestinal (Abdomen): Inspection/Auscultation: normal bowel sounds Percussion/Palpation: abdomen soft; abdomen nontender Musculoskeletal: Extremities: strength 5/5 throughout Skin: no rashes, warm and dry Neurologic: malone, fluent speech, no tremor Psychiatric: Orientation: oriented x 3 Results & Data ([facility]) Vital Signs (Past 12 Hours) Vital Signs Temp Pulse Pulse Resp BP Pulse Ox 12/23/21 15:08 37.1 C 64 22 134/48 L 95 12/23/21 14:52 61 12/23/21 11:43 36.8 C 60 22 123/41 L 93 12/23/21 08:00 58 L 12/23/21 07:50 36.5 C 60 22 129/55 L 92 Laboratory Results 12/23/21 05:31 12/23/21 15:59
--- NOTE | 2021-12-23 17:46 | XRay Report ---
XR chest 1V portable CLINICAL HISTORY: f/u fluid status in lungs, pna COMPARISON STUDY: Chest CT and chest radiograph December 18, 2021. FINDINGS: There is no pneumothorax. Trace right pleural effusion is noted. Bilateral airspace opaciti es have nearly completely resolved. Cardiomediastinal silhouette is stable. Endotracheal and nasogast natasha tubes have been removed. IMPRESSION: 1. Near complete resolution of bilateral airspace opacities. 2. Small right pleural effusion. ACT 112: Negative or not required by law. Electronically signed by: Eber Stephens M.D. 12/23/2021 5:44 PM
[2021-12-23] MEDS ORDERED: SODIUM CHLORIDE 0.9% 1000ML 250 ML IV ONE (18:42)
[2021-12-23] MEDS: PRAVASTATIN SOD 40 MG TAB NG SCH (20:49)
[2021-12-24] MEDS: CEFEPIME 2,000 MG in SYRINGE 0 ML IV SCH ×3 (04:25→19:00)
[2021-12-24] MEDS: oxyCODONE HCL IR 5 MG TAB (IMMEDIATE RELEASE) PO PRN ×2 (04:27→13:27)
[2021-12-24] MEDS: PANTOprazole 40 MG TAB PO SCH (06:24)
[2021-12-24 07:09] LABS: Creatinine Clr Calc Pharmacy 68.2 ml/min; Est GFR (African American) 102.2 ml/min; Est GFR (Non-African American) 88.2 ml/min; Potassium 4.6 mmol/L (3.5-5.1)
[2021-12-24] MEDS: METOPROLOL TARTRATE 25 MG TAB PO SCH ×2 (07:34→21:11)
[2021-12-24] MEDS: POTASSIUM CHLORIDE CRTAB 20 MEQ TABCR PO SCH ×3 (07:34→21:11)
[2021-12-24] MEDS: GABAPENTIN 300 MG CAP PO SCH ×3 (07:35→21:09)
[2021-12-24] MEDS: AMIODARONE 200 MG TAB PO SCH (07:35)
[2021-12-24] MEDS: DOXYCYCLINE HYCLATE 100 MG CAP PO SCH (07:35)
[2021-12-24] MEDS: DOCUSATE SODIUM 100 MG CAP PO SCH ×2 (07:35→21:09)
[2021-12-24] MEDS: ENOXAPARIN INJ 40 MG/0.4 ML SYR SQ SCH (07:36)
[2021-12-24] MEDS: LOSARTAN POTASSIUM 50 MG TAB PO SCH (07:36)
[2021-12-24] MEDS: DULoxetine HCL 60 MG CAP PO SCH (07:36)
[2021-12-24] MEDS: FLUTICASONE/VILANTEROL 200/25MCG 14 PUFFS/INHALER INH SCH (07:37)
[2021-12-24] MEDS: INSULIN GLARGINE SOLOSTAR 100 UNITS/ML 3 ML PEN SC SCH (08:38)
[2021-12-24] MEDS: INSULIN ASPART PER UNIT SC SCH ×4 (08:38→21:25)
--- NOTE | 2021-12-24 12:56 | Nephrology Progress Note ---
Date of Service December 24, 2021 Assessment & Plan Admission and Anticipated Discharge Date Admission Date: December 18, 2021 Subjective Assessment & Plan (1) Chronic hyponatremia: Plan: further exacerbation of chronic intermittent hyponatremia w/ OP sodium running often in low 130s. presented 12/17 w/ sNa 124. na not rising --initially got 3% Hypertonic saline but that is not a sustainable solution. Rec: NS at 80 ml per hr. Lasix 40 iv bid. Fluid limit 1200 ml per day. BMP every 12 hrs. Subjective more n/v past few days. Poor PO intake. Na not improving. pain well controlled; no sob. Review of Systems Review of Systems: All systems reviewed & are unremarkable except as noted in Subjective Physical Exam Constitutional: well developed and well nourished; no acute distress Eyes: EOM intact bilaterally ENMT: Ears: no external ear abnormality Nose: no external nose abnormality Mouth: + dry oral mucous membranes Neck: no nuchal rigidity Respiratory: normal respiratory effort Auscultation: + diminished lung sounds Cardiovascular:L RRR, no murmur, no edema Gastrointestinal (Abdomen): Inspection/Auscultation: normal bowel sounds Percussion/Palpation: abdomen soft; abdomen nontender Musculoskeletal: Extremities: strength 5/5 throughout Skin: no rashes, warm and dry Neurologic: malone, fluent speech, no tremor Psychiatric: Orientation: oriented x 3 Results & Data ([facility]) Vital Signs (Past 12 Hours) Vital Signs Temp Pulse Pulse Resp BP Pulse Ox 12/24/21 11:18 36.9 C 57 L 22 149/76 H 96 12/24/21 07:51 63 12/24/21 07:18 36.9 C 61 17 134/68 96 12/24/21 03:08 36.8 C 58 L 23 146/68 H 97
[2021-12-24] MEDS ORDERED: FUROSEMIDE 40 MG/4 ML VIAL IV ONE (13:00)
[2021-12-24] MEDS: SODIUM CHLORIDE 0.9% 1000ML 1,000 ML IV SCH (13:21)
[2021-12-24 14:16] LABS: BUN Creatinine Ratio 18.2 (10-20); Calcium 9.3 mg/dl (8.5-10.1); Est GFR (African American) 100.2 ml/min; Est GFR (Non-African American) 86.4 ml/min; Potassium 4.5 mmol/L (3.5-5.1)
--- NOTE | 2021-12-24 15:54 | Hospitalist Progress Note ---
Date of Service December 24, 2021 Assessment & Plan (1) Acute hypoxemic respiratory failure: Plan: (1) Acute hypoxemic respiratory failure: Plan: per Dr. Rowe's notes with addendum: Acute hypoxic respiratory failure Possible pneumonia/Aspiration Asthma/COPD Exacerbation --CTA:Exam significantly compromised by respiratory motion. No pulmonary emboli identified although segmental and subsegmental pulmonary arteries suboptimally assessed. Extensive airspace opacities throughout the lungs. The findings favor an infectious process. Aspiration pneumonitis is within the differential but considered less likely. Satisfactory positioning of the endotracheal and nasogastric tubes. --Bio fire and COVID-19 negative S/P Extubation 12/18/21 Appreciate Mammalogist help Continue supplemental oxygen as needed Continue doxycycline, cefepime Aspiration precautions Continue home inhalers Had FEES Study today Appreciate Speech therapy Eval Currently on 2 L supplemental oxygen Wean off of supplemental oxygen as able 2 step prior to discharge 12/24 continue Cefepime d/c Doxycycline due to possible cause of GI symptoms currently on room air will need 2 step exercise test Possible Sepsis Sources: Pulmonary as above On antibiotics as above Check lumbar x-ray given recent lumbar surgery Continue antibiotics as above Urine culture negative Blood cultures negative to date Leukocytosis likely steroids contributed Leukocytosis trending down 12/24 WBC trending down, 13,000 Paroxysmal atrial tachycardia NSVT New left bundle branch block Elevated troponin H/O PSVT, PVD Moderate aortic stenosis Cardiology on board Continue metoprolol 25 mg twice daily, amiodarone Monitor electrolytes 12/24 stable continue Metoprolol, Amiodarone Elevated Troponin Likely Type II SC due to demand ischemia Troponin levels trended down Hypertension Continue current medications Resumed losartan Hyperlipidemia on statin DM II Hold p.o. meds HbA1C:6.3 last November 25, 2021 Continue insulin sliding scale Acute on chronic hyponatremia Received hypertonic saline Sodium 127 today Appreciate nephrology input Continue to monitor sodium levels IV Lasix BID as per Nephrology 12/24 Still at 122 Nephro on board IV NSS Lasix BMP q12h fluid restriction 1,200 H/O Recent back surgery Postop anemia Gabapentin resumed at lower dose Hold baclofen for now 12/23 Hg improved to 9 will transfuse once Hg < 8 or if patient symptomatic DVT Px: Lovenox SQ Code Status Full code plan of care discussed with patient in detail and at length all questions answered she is understanding, agreeable, comfortable with the plan of care Admission and Anticipated Discharge Date Admission Date: December 18, 2021 Subjective ff up for respiratory failure, etc seen resting in bed, comfortable states she feels ok overall has mild nausea no chest pain, dyspnea, palpitations, dizziness no other symptoms Review of Systems Review of Systems: all noted and negative except for above Physical Exam Physical Exam: General- oriented x 3, not in distress, speaks in sentences with no effort or accessory muscle use Eyes- anicteric Neck- no JVD Lungs- clear BS BL Heart- normal rate, regular rhythm; no murmurs Abdomen- normal bowel sounds, nondistended, soft, nontender Extremities- no pretibial edema, no calf tenderness Neuro- alert, oriented x 3; no gross focal neurologic deficits Skin- warm & dry Results & Data Results & Data ([facility]) Vital Signs (Past 12 Hours) Vital Signs Temp Pulse Pulse Resp BP Pulse Ox 12/24/21 15:17 36.8 C 55 L 19 119/41 L 95 12/24/21 11:18 36.9 C 57 L 22 149/76 H 96 12/24/21 07:51 63 12/24/21 07:18 36.9 C 61 17 134/68 96 all noted and reviewed including below
[2021-12-24] MEDS: FUROSEMIDE 40 MG/4 ML VIAL IV SCH (18:59)
[2021-12-24] MEDS: PRAVASTATIN SOD 40 MG TAB NG SCH (21:08)
[2021-12-25 01:36] LABS: Calcium 8.7 mg/dl (8.5-10.1); Creatinine Clr Calc Pharmacy 56.4 ml/min; Est GFR (African American) 90.4 ml/min; Potassium 3.9 mmol/L (3.5-5.1)
[2021-12-25] MEDS: SODIUM CHLORIDE 0.9% 1000ML 1,000 ML IV SCH ×2 (01:51→14:19)
[2021-12-25] MEDS: oxyCODONE HCL IR 5 MG TAB (IMMEDIATE RELEASE) PO PRN ×4 (01:54→22:13)
[2021-12-25] MEDS: CEFEPIME 2,000 MG in SYRINGE 0 ML IV SCH ×2 (04:16→12:06)
[2021-12-25] MEDS: PANTOprazole 40 MG TAB PO SCH (05:45)
[2021-12-25 06:34] LABS: Calcium 8.6 mg/dl (8.5-10.1); Creatinine Clr Calc Pharmacy 59.6 ml/min; Est GFR (African American) 98.2 ml/min; Est GFR (Non-African American) 84.8 ml/min; Potassium 4.1 mmol/L (3.5-5.1)
[2021-12-25] MEDS: FLUTICASONE/VILANTEROL 200/25MCG 14 PUFFS/INHALER INH SCH (07:43)
[2021-12-25] MEDS: FUROSEMIDE 40 MG/4 ML VIAL IV SCH ×2 (07:43→19:15)
[2021-12-25] MEDS: METOPROLOL TARTRATE 25 MG TAB PO SCH ×2 (07:44→22:10)
[2021-12-25] MEDS: ENOXAPARIN INJ 40 MG/0.4 ML SYR SQ SCH (07:44)
[2021-12-25] MEDS: GABAPENTIN 300 MG CAP PO SCH ×3 (07:44→22:10)
[2021-12-25] MEDS: POTASSIUM CHLORIDE CRTAB 20 MEQ TABCR PO SCH ×3 (07:44→22:09)
[2021-12-25] MEDS: DULoxetine HCL 60 MG CAP PO SCH (07:45)
[2021-12-25] MEDS: LOSARTAN POTASSIUM 50 MG TAB PO SCH (07:46)
[2021-12-25] MEDS: AMIODARONE 200 MG TAB PO SCH (07:46)
[2021-12-25] MEDS: DOCUSATE SODIUM 100 MG CAP PO SCH ×2 (07:52→22:10)
[2021-12-25] MEDS: INSULIN ASPART PER UNIT SC SCH ×4 (08:05→22:15)
[2021-12-25] MEDS: INSULIN GLARGINE SOLOSTAR 100 UNITS/ML 3 ML PEN SC SCH (08:06)
[2021-12-25 13:46] LABS: BUN Creatinine Ratio 19.2 (10-20); Calcium 8.7 mg/dl (8.5-10.1); Creatinine Clr Calc Pharmacy 53.5 ml/min; Est GFR (African American) 86.2 ml/min; Est GFR (Non-African American) 74.4 ml/min; Potassium 4.3 mmol/L (3.5-5.1)
--- NOTE | 2021-12-25 16:00 | Hospitalist Progress Note ---
Date of Service December 25, 2021 Assessment & Plan (1) Acute hypoxemic respiratory failure: Plan: (1) Acute hypoxemic respiratory failure: Plan: per Dr. Rowe's notes with addendum: Acute hypoxic respiratory failure Possible pneumonia/Aspiration Asthma/COPD Exacerbation --CTA:Exam significantly compromised by respiratory motion. No pulmonary emboli identified although segmental and subsegmental pulmonary arteries suboptimally assessed. Extensive airspace opacities throughout the lungs. The findings favor an infectious process. Aspiration pneumonitis is within the differential but considered less likely. Satisfactory positioning of the endotracheal and nasogastric tubes. --Bio fire and COVID-19 negative S/P Extubation 12/18/21 Appreciate [employer]iler [employer] help Continue supplemental oxygen as needed Continue doxycycline, cefepime Aspiration precautions Continue home inhalers Had FEES Study today Appreciate Speech therapy Orestes Currently on 2 L supplemental oxygen Wean off of supplemental oxygen as able 2 step prior to discharge 12/25 completed Cefepime + Doxycycline x 7 days GI symptoms resolved with discontinuation of Doxycycline currently on room air will need 2 step exercise test Possible Sepsis Sources: Pulmonary as above On antibiotics as above Check lumbar x-ray given recent lumbar surgery Continue antibiotics as above Urine culture negative Blood cultures negative to date Leukocytosis likely steroids contributed Leukocytosis trending down 12/25 WBC trending down, 13,000 Paroxysmal atrial tachycardia NSVT New left bundle branch block Elevated troponin H/O PSVT, PVD Moderate aortic stenosis Cardiology on board Continue metoprolol 25 mg twice daily, amiodarone Monitor electrolytes 12/25 stable continue Metoprolol, Amiodarone Elevated Troponin Likely Type II SD due to demand ischemia Troponin levels trended down Hypertension Continue current medications Resumed losartan Hyperlipidemia on statin DM II Hold p.o. meds HbA1C:6.3 last November 25, 2021 Continue insulin sliding scale Acute on chronic hyponatremia Received hypertonic saline Sodium 127 today Appreciate nephrology input Continue to monitor sodium levels IV Lasix BID as per Nephrology 12/25 slightly improving 125 Nephro on board IV NSS Lasix BMP q12h fluid restriction 1,200 H/O Recent back surgery Postop anemia Gabapentin resumed at lower dose Hold baclofen for now 12/25 Hg improved to 9 will transfuse once Hg < 8 or if patient symptomatic DVT Px: Lovenox SQ Code Status Full code plan of care discussed with patient in detail and at length all questions answered she is understanding, agreeable, comfortable with the plan of care Admission and Anticipated Discharge Date Admission Date: December 18, 2021 Subjective ff up for respiratory failure, etc seen resting in bed, comfortable in good spirits states she feels better today no nausea, abdominal pain no chest pain, dyspnea, palpitations, dizziness no other symptoms Review of Systems Review of Systems: all noted and negative except for above Physical Exam Physical Exam: General- oriented x 3, not in distress, speaks in sentences with no effort or accessory muscle use Eyes- anicteric Neck- no JVD Lungs- clear BS Heart- normal rate, regular rhythm; no murmurs Abdomen- normal bowel sounds, nondistended, soft, nontender Extremities- no pretibial edema, no calf tenderness Neuro- alert, oriented x 3; no gross focal neurologic deficits Skin- warm & dry Results & Data Results & Data ([facility]) Vital Signs (Past 12 Hours) Vital Signs Temp Pulse Pulse Resp BP Pulse Ox 12/25/21 15:35 36.8 C 56 L 20 116/59 L 94 12/25/21 11:00 36.6 C 51 L 19 104/52 L 95 12/25/21 08:00 58 L 12/25/21 07:03 37.0 C 57 L 18 132/78 93 all noted and reviewed including below
[2021-12-25] MEDS: PRAVASTATIN SOD 40 MG TAB NG SCH (22:09)
[2021-12-26 01:45] LABS: Calcium 8.4 mg/dl (8.5-10.1); Creatinine Clr Calc Pharmacy 68.4 ml/min; Est GFR (African American) 102.8 ml/min; Est GFR (Non-African American) 88.7 ml/min; Potassium 4.3 mmol/L (3.5-5.1)
[2021-12-26] MEDS: SODIUM CHLORIDE 0.9% 1000ML 1,000 ML IV SCH ×2 (02:49→15:42)
[2021-12-26] MEDS: PANTOprazole 40 MG TAB PO SCH (05:50)
[2021-12-26] MEDS: oxyCODONE HCL IR 5 MG TAB (IMMEDIATE RELEASE) PO PRN ×2 (06:11→21:26)
[2021-12-26 07:10] LABS: BUN Creatinine Ratio 20.6 (10-20); Calcium 8.5 mg/dl (8.5-10.1); Creatinine Clr Calc Pharmacy 66.6 ml/min; Est GFR (African American) 101.7 ml/min; Est GFR (Non-African American) 87.7 ml/min
[2021-12-26] MEDS: INSULIN ASPART PER UNIT SC SCH ×4 (08:27→22:13)
[2021-12-26] MEDS: DOCUSATE SODIUM 100 MG CAP PO SCH ×2 (08:28→22:12)
[2021-12-26] MEDS: AMIODARONE 200 MG TAB PO SCH (08:28)
[2021-12-26] MEDS: DULoxetine HCL 60 MG CAP PO SCH (08:28)
[2021-12-26] MEDS: FLUTICASONE/VILANTEROL 200/25MCG 14 PUFFS/INHALER INH SCH (08:29)
[2021-12-26] MEDS: ENOXAPARIN INJ 40 MG/0.4 ML SYR SQ SCH (08:29)
[2021-12-26] MEDS: FUROSEMIDE 40 MG/4 ML VIAL IV SCH ×2 (08:31→19:19)
[2021-12-26] MEDS: INSULIN GLARGINE SOLOSTAR 100 UNITS/ML 3 ML PEN SC SCH (08:33)
[2021-12-26] MEDS: GABAPENTIN 300 MG CAP PO SCH ×3 (08:33→21:51)
[2021-12-26] MEDS: LOSARTAN POTASSIUM 50 MG TAB PO SCH (08:34)
[2021-12-26] MEDS: METOPROLOL TARTRATE 25 MG TAB PO SCH ×2 (08:35→21:52)
[2021-12-26] MEDS: POTASSIUM CHLORIDE CRTAB 20 MEQ TABCR PO SCH ×3 (08:35→21:52)
--- NOTE | 2021-12-26 16:39 | Nephrology Progress Note ---
Date of Service December 26, 2021 Assessment & Plan Admission and Anticipated Discharge Date Admission Date: December 18, 2021 Subjective Subjective Assessment & Plan (1) Chronic hyponatremia: Plan: further exacerbation of chronic intermittent hyponatremia w/ OP sodium running often in low 130s. presented 12/17 w/ sNa 124. na not rising as much--initially got 3% Hypertonic saline but that is not a sustainable solution. Rec: na rising but very slowly Continue NS at 80 ml per hr. Lasix 40 iv bid. Fluid limit 1200 ml per day. BMP every 12 hrs. add Urea-Na 15 gm bid Subjective more n/v past few days. Poor PO intake. pain well controlled; no sob. Review of Systems Review of Systems: All systems reviewed & are unremarkable except as noted in Subjective Physical Exam Constitutional: well developed and well nourished; no acute distress Eyes: EOM intact bilaterally ENMT: Ears: no external ear abnormality Nose: no external nose abnormality Mouth: + dry oral mucous membranes Neck: no nuchal rigidity Respiratory: normal respiratory effort Auscultation: + diminished lung sounds Cardiovascular: RRR, no murmur, no edema Gastrointestinal (Abdomen): Inspection/Auscultation: normal bowel sounds Percussion/Palpation: abdomen soft; abdomen nontender Musculoskeletal: Extremities: strength 5/5 throughout Skin: no rashes, warm and dry Neurologic: malone, fluent speech, no tremor Psychiatric: Orientation: oriented x 3 Results & Data ([facility]) Vital Signs (Past 12 Hours) Vital Signs Temp Pulse Resp BP Pulse Ox 12/26/21 15:56 36.8 C 61 18 117/39 L 94 12/26/21 11:18 36.6 C 60 18 134/45 L 96 12/26/21 07:42 36.6 C 58 L 16 85/47 L 96
--- NOTE | 2021-12-26 18:12 | Hospitalist Progress Note ---
Date of Service December 26, 2021 Assessment & Plan (1) Acute hypoxemic respiratory failure: Plan: Acute hypoxic respiratory failure Possible pneumonia/Aspiration Asthma/COPD Exacerbation --CTA:Exam significantly compromised by respiratory motion. No pulmonary emboli identified although segmental and subsegmental pulmonary arteries suboptimally assessed. Extensive airspace opacities throughout the lungs. The findings favor an infectious process. Aspiration pneumonitis is within the differential but considered less likely. Satisfactory positioning of the endotracheal and nasogastric tubes. --Bio fire and COVID-19 negative S/P Extubation 12/18/2112/26 Acute hypoxic respiratory failure resolved Currently on room air completed Cefepime + Doxycycline x 7 days GI symptoms resolved with discontinuation of Doxycycline will need 2 step exercise test Possible Sepsis Sources: Pulmonary as above On antibiotics as above Check lumbar x-ray given recent lumbar surgery Continue antibiotics as above Urine culture negative Blood cultures negative to date Leukocytosis likely steroids contributed Leukocytosis trending down 12/26 WBC trending down, 13,000 Acute on chronic hyponatremia Received hypertonic saline Sodium 127 today Appreciate nephrology input Continue to monitor sodium levels IV Lasix BID as per Nephrology 12/25 slightly improving 126 Nephro on board IV NSS Lasix BMP q12h fluid restriction 1,200 Paroxysmal atrial tachycardia NSVT New left bundle branch block Elevated troponin H/O PSVT, PVD Moderate aortic stenosis Cardiology on board Continue metoprolol 25 mg twice daily, amiodarone Monitor electrolytes 12/26 stable continue Metoprolol, Amiodarone Elevated Troponin Likely Type II [place] due to demand ischemia Troponin levels trended down H/O Recent back surgery Postop anemia Gabapentin resumed at lower dose Hold baclofen for now 12/26 Hg improved to 9 will transfuse once Hg < 8 or if patient symptomatic Hypertension Continue current medications Including losartan Hyperlipidemia on statin DM II Hold p.o. meds HbA1C:6.3 last November 25, 2021 Continue insulin sliding scale DVT Px: Lovenox SQ Code Status Full code plan of care discussed with patient in detail and at length all questions answered she is understanding, agreeable, comfortable with the plan of care Admission and Anticipated Discharge Date Admission Date: December 18, 2021 Subjective Follow-up for respiratory failure, etc. Seen resting in bed, comfortable, in good spirits Smiling States she feels much better No headache, dizziness, nausea vomiting, abdominal pain States she ambulated in the hallways with no problems No other symptoms Review of Systems Review of Systems: all noted and negative except for above Physical Exam Physical Exam: General- oriented x 3, not in distress, speaks in sentences with no effort or accessory muscle use Eyes- anicteric Neck- no JVD Lungs- clear breath sounds BL Heart- normal rate, regular rhythm; no murmurs Abdomen- normal bowel sounds, nondistended, soft, nontender Extremities- no pretibial edema, no calf tenderness Neuro- alert, oriented x 3; no gross focal neurologic deficits Skin- warm & dry Results & Data Results & Data ([facility]) Vital Signs (Past 12 Hours) Vital Signs Temp Pulse Resp BP Pulse Ox 12/26/21 15:56 36.8 C 61 18 117/39 L 94 12/26/21 11:18 36.6 C 60 18 134/45 L 96 12/26/21 07:42 36.6 C 58 L 16 85/47 L 96 all noted and reviewed including below
[2021-12-26] MEDS: UREA (UREA-NA) 15 GM PACK PO SCH (21:51)
[2021-12-26] MEDS: PRAVASTATIN SOD 40 MG TAB NG SCH (21:52)
[2021-12-27] MEDS: SODIUM CHLORIDE 0.9% 1000ML 1,000 ML IV SCH ×3 (04:12→15:05)
[2021-12-27] MEDS: PANTOprazole 40 MG TAB PO SCH (05:49)
[2021-12-27] MEDS: oxyCODONE HCL IR 5 MG TAB (IMMEDIATE RELEASE) PO PRN ×3 (05:49→21:06)
[2021-12-27 06:08] LABS: BUN Creatinine Ratio 40.3 (10-20); Calcium 8.5 mg/dl (8.5-10.1); Creatinine Clr Calc Pharmacy 67.9 ml/min; Est GFR (African American) 102.2 ml/min; Est GFR (Non-African American) 88.2 ml/min; Potassium 3.8 mmol/L (3.5-5.1)
[2021-12-27] MEDS: INSULIN GLARGINE SOLOSTAR 100 UNITS/ML 3 ML PEN SC SCH (08:02)
[2021-12-27] MEDS: INSULIN ASPART PER UNIT SC SCH ×4 (08:02→21:38)
[2021-12-27] MEDS: DOCUSATE SODIUM 100 MG CAP PO SCH ×2 (08:04→20:59)
[2021-12-27] MEDS: UREA (UREA-NA) 15 GM PACK PO SCH ×2 (08:04→21:01)
[2021-12-27] MEDS: LOSARTAN POTASSIUM 50 MG TAB PO SCH (08:05)
[2021-12-27] MEDS: DULoxetine HCL 60 MG CAP PO SCH (08:05)
[2021-12-27] MEDS: METOPROLOL TARTRATE 25 MG TAB PO SCH ×2 (08:05→21:00)
[2021-12-27] MEDS: POTASSIUM CHLORIDE CRTAB 20 MEQ TABCR PO SCH ×3 (08:05→21:00)
[2021-12-27] MEDS: GABAPENTIN 300 MG CAP PO SCH ×3 (08:06→21:00)
[2021-12-27] MEDS: FLUTICASONE/VILANTEROL 200/25MCG 14 PUFFS/INHALER INH SCH (08:06)
[2021-12-27] MEDS: AMIODARONE 200 MG TAB PO SCH (08:06)
[2021-12-27] MEDS: ENOXAPARIN INJ 40 MG/0.4 ML SYR SQ SCH (08:06)
[2021-12-27] MEDS: FUROSEMIDE 40 MG/4 ML VIAL IV SCH ×2 (08:07→21:07)
--- NOTE | 2021-12-27 09:08 | Nephrology Progress Note ---
Date of Service December 27, 2021 Assessment & Plan Admission and Anticipated Discharge Date Admission Date: December 18, 2021 Subjective Assessment & Plan (1) Chronic hyponatremia: Plan: further exacerbation of chronic intermittent hyponatremia w/ OP sodium running often in low 130s. presented 12/17 w/ sNa 124. 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 Rec: na rising but very slowly Continue NS at 80 ml per hr while inpt. for D/c Salt tab 1 gm bid. Lasix 40 iv bid for inpt. Change to PO lasix 40 bid for D/c Fluid limit 1200 ml per day. BMP every 24 hrs now Urea-Na 15 gm bid while inpt Raise protein intake to help with Low Na+ Subjective more n/v past few days. Poor PO intake. pain well controlled; no sob. Review of Systems Review of Systems: All systems reviewed & are unremarkable except as noted in Subjective Physical Exam Constitutional: well developed and well nourished; no acute distress Eyes: EOM intact bilaterally ENMT: Ears: no external ear abnormality Nose: no external nose abnormality Mouth: + dry oral mucous membranes Neck: no nuchal rigidity Respiratory: normal respiratory effort Auscultation: + diminished lung sounds Cardiovascular: RRR, no murmur, no edema Gastrointestinal (Abdomen): Inspection/Auscultation: normal bowel sounds Percussion/Palpation: abdomen soft; abdomen nontender Musculoskeletal: Extremities: strength 5/5 throughout Skin: no rashes, warm and dry Neurologic: malone, fluent speech, no tremor Psychiatric: Orientation: oriented x 3 Results & Data ([facility]) Vital Signs (Past 12 Hours) Vital Signs Temp Pulse Pulse Resp BP Pulse Ox 12/27/21 06:58 37.0 C 64 12 113/51 L 92 12/27/21 02:53 36.8 C 63 18 122/55 L 94 12/27/21 00:00 61 12/26/21 23:30 36.6 C 60 16 114/39 L 94
--- NOTE | 2021-12-27 10:50 | Hospitalist Progress Note ---
Date of Service December 27, 2021 Assessment & Plan (1) Acute hypoxemic respiratory failure: Plan: Acute hypoxic respiratory failure Possible pneumonia/Aspiration Asthma/COPD Exacerbation --CTA:Exam significantly compromised by respiratory motion. No pulmonary emboli identified although segmental and subsegmental pulmonary arteries suboptimally assessed. Extensive airspace opacities throughout the lungs. The findings favor an infectious process. Aspiration pneumonitis is within the differential but considered less likely. Satisfactory positioning of the endotracheal and nasogastric tubes. --Bio fire and COVID-19 negative S/P Extubation 12/18/2112/27 Acute hypoxic respiratory failure resolved on room air completed Cefepime + Doxycycline x 7 days GI symptoms resolved with discontinuation of Doxycycline will need 2 step exercise test Possible Sepsis Sources: Pulmonary as above Urine culture negative Blood cultures negative to date Leukocytosis likely steroids contributed WBC trending down, 13,000 Acute on chronic hyponatremia likely from SIADH with poor solute intake improving, although gradually Nephro on board, started the following over the weekend: IV NSS Lasix Urea Na now 127 Nephro recommendations: Continue NS at 80 ml per hr while inpt. for D/c Salt tab 1 gm bid. Lasix 40 iv bid for inpt. Change to PO lasix 40 bid for D/c Fluid limit 1200 ml per day. BMP every 24 hrs now Urea-Na 15 gm bid while inpt Raise protein intake to help with Low Na+ Paroxysmal atrial tachycardia NSVT New left bundle branch block Elevated troponin H/O PSVT, PVD Moderate aortic stenosis Cardiology on board Continue metoprolol 25 mg twice daily, amiodarone Monitor electrolytes 12/27 stable continue Metoprolol, Amiodarone Elevated Troponin Likely Type II [place] due to demand ischemia Troponin levels trended down H/O Recent back surgery Postop anemia Gabapentin resumed at lower dose Hold baclofen for now 12/27 Hg improved to 9 will transfuse once Hg < 8 or if patient symptomatic Hypertension Continue current medications Including losartan Hyperlipidemia on statin DM II Hold p.o. meds HbA1C:6.3 last November 25, 2021 Continue insulin sliding scale DVT Px: Lovenox SQ Code Status Full code plan of care discussed with patient in detail and at length all questions answered she is understanding, agreeable, comfortable with the plan of care Admission and Anticipated Discharge Date Admission Date: December 18, 2021 Subjective ff up for acute hypoxemic respiratory failure, etc seen resting in bed, comfortable in good spirits states she feels fine overall no chest pain, dyspnea, palpitations, dizziness no abdominal pain, nausea/vomiting,etc no other symptoms Review of Systems Review of Systems: all noted and negative except for above Physical Exam Physical Exam: General- oriented x 2, not in distress, speaks in sentences with no effort or accessory muscle use Eyes- anicteric Neck- no JVD Lungs- clear breath sounds bilaterally Heart- normal rate, regular rhythm; no murmurs Abdomen- normal bowel sounds, nondistended, soft, nontender Extremities- no pretibial edema, no calf tenderness Back- incision well healed, malina in place Neuro- alert, oriented x 3; no gross focal neurologic deficits Skin- warm & dry Results & Data Results & Data ([facility]) Vital Signs (Past 12 Hours) Vital Signs Temp Pulse Pulse Resp BP Pulse Ox 12/27/21 06:58 37.0 C 64 12 113/51 L 92 12/27/21 02:53 36.8 C 63 18 122/55 L 94 12/27/21 00:00 61 12/26/21 23:30 36.6 C 60 16 114/39 L 94 all noted and reviewed including below
[2021-12-27] MEDS: PRAVASTATIN SOD 40 MG TAB NG SCH (21:01)
[2021-12-28] MEDS: SODIUM CHLORIDE 0.9% 1000ML 1,000 ML IV SCH (02:33)
[2021-12-28] MEDS: PANTOprazole 40 MG TAB PO SCH (06:00)
[2021-12-28 06:58] LABS: Calcium 8.7 mg/dl (8.5-10.1); Creatinine Clr Calc Pharmacy 63.8 ml/min; Est GFR (African American) 100.2 ml/min; Est GFR (Non-African American) 86.4 ml/min; Potassium 3.8 mmol/L (3.5-5.1)
[2021-12-28] MEDS: POTASSIUM CHLORIDE CRTAB 20 MEQ TABCR PO SCH ×3 (07:49→19:45)
[2021-12-28] MEDS: ENOXAPARIN INJ 40 MG/0.4 ML SYR SQ SCH (07:49)
[2021-12-28] MEDS: UREA (UREA-NA) 15 GM PACK PO SCH ×2 (07:50→19:43)
[2021-12-28] MEDS: GABAPENTIN 300 MG CAP PO SCH ×3 (07:50→19:44)
[2021-12-28] MEDS: DULoxetine HCL 60 MG CAP PO SCH (07:50)
[2021-12-28] MEDS: DOCUSATE SODIUM 100 MG CAP PO SCH ×2 (07:50→19:43)
[2021-12-28] MEDS: METOPROLOL TARTRATE 25 MG TAB PO SCH ×2 (07:50→19:43)
[2021-12-28] MEDS: FUROSEMIDE 40 MG/4 ML VIAL IV SCH (07:53)
[2021-12-28] MEDS: FLUTICASONE/VILANTEROL 200/25MCG 14 PUFFS/INHALER INH SCH (07:53)
[2021-12-28] MEDS: LOSARTAN POTASSIUM 50 MG TAB PO SCH (07:54)
[2021-12-28] MEDS: oxyCODONE HCL IR 5 MG TAB (IMMEDIATE RELEASE) PO PRN ×2 (07:57→14:01)
[2021-12-28] MEDS: AMIODARONE 200 MG TAB PO SCH (08:01)
[2021-12-28] MEDS: INSULIN GLARGINE SOLOSTAR 100 UNITS/ML 3 ML PEN SC SCH (08:02)
[2021-12-28] MEDS: INSULIN ASPART PER UNIT SC SCH ×4 (08:02→20:49)
--- NOTE | 2021-12-28 09:44 | Nephrology Progress Note ---
Date of Service December 28, 2021 Assessment & Plan Admission and Anticipated Discharge Date Admission Date: December 18, 2021 Subjective Assessment & Plan (1) Chronic hyponatremia: Plan: further exacerbation of chronic intermittent hyponatremia w/ OP sodium running often in low 130s. presented 12/17 w/ sNa 124. 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 Rec: na rising but very slowly--finally for the first time it is 130 !!! Stop NS Salt tab 1 gm bid. Change to PO lasix 40 bid for D/c Fluid limit 1200 ml per day. BMP every 24 hrs now Urea-Na 15 gm bid while inpt Raise protein intake to help with Low Na+ Subjective more n/v past few days. Poor PO intake. pain well controlled; no sob. Review of Systems Review of Systems: All systems reviewed & are unremarkable except as noted in Subjective Physical Exam Constitutional: well developed and well nourished; no acute distress Eyes: EOM intact bilaterally ENMT: Ears: no external ear abnormality Nose: no external nose abnormality Mouth: + dry oral mucous membranes Neck: no nuchal rigidity B Respiratory: normal respiratory effort Auscultation: + diminished lung sounds Cardiovascular: RRR, no murmur, no edema Gastrointestinal (Abdomen): Inspection/Auscultation: normal bowel sounds Percussion/Palpation: abdomen soft; abdomen nontender Musculoskeletal: Extremities: strength 5/5 throughout Skin: no rashes, warm and dry Neurologic: malone, fluent speech, no tremor Psychiatric: Orientation: oriented x 3 Results & Data ([facility]) Vital Signs (Past 12 Hours) Vital Signs Temp Pulse Resp BP Pulse Ox 12/28/21 08:15 36.4 C L 54 L 16 114/50 L 96 12/28/21 03:46 36.5 C 55 L 18 129/57 L 98 12/27/21 22:33 36.8 C 58 L 18 121/55 L 93
[2021-12-28] MEDS: FUROSEMIDE 40 MG TAB PO SCH ×2 (11:48→16:55)
[2021-12-28] MEDS: SODIUM CHLORIDE 1 GM TABLET PO SCH ×2 (11:48→19:47)
--- NOTE | 2021-12-28 18:29 | Hospitalist Progress Note ---
Date of Service December 28, 2021 Assessment & Plan (1) Acute hypoxemic respiratory failure: Plan: Acute hypoxic respiratory failure Possible pneumonia/Aspiration Asthma/COPD Exacerbation --CTA:Exam significantly compromised by respiratory motion. No pulmonary emboli identified although segmental and subsegmental pulmonary arteries suboptimally assessed. Extensive airspace opacities throughout the lungs. The findings favor an infectious process. Aspiration pneumonitis is within the differential but considered less likely. Satisfactory positioning of the endotracheal and nasogastric tubes. --Bio fire and COVID-19 negative S/P Extubation 12/18/21 Respiratory failure resolved Completed cefepime, and doxycycline for 7-day course Saturating well on room air Possible Sepsis Sources: Pulmonary as above Urine culture negative Blood cultures negative to date Leukocytosis likely steroids contributed WBC trended down Acute on chronic hyponatremia likely SIADH with poor solute intake Sodium 122>>130 Appreciate nephrology input Continue salt tablet 1 g twice daily Continue fluid restriction Continue yesterday to milligrams twice daily Increase protein intake Continue p.o. Lasix 40 mg BID Needs follow-up with nephrology upon discharge Paroxysmal atrial tachycardia NSVT New left bundle branch block Elevated troponin H/O PSVT, PVD Moderate aortic stenosis Cardiology on board Continue metoprolol, amiodarone Monitor electrolytes Elevated Troponin Likely Type II AR due to demand ischemia Troponin levels trended down H/O Recent back surgery Postop anemia Gabapentin resumed at lower dose Hold baclofen for now Needs follow-up with orthopedic surgery upon discharge Monitor CBC Hypertension Continue current medications Hyperlipidemia on statin DM II Hold p.o. meds HbA1C:6.3 last November 25, 2021 Continue insulin sliding scale DVT Px: Lovenox SQ Code Status Full code Disposition Rehab as able Needs follow up with Orthopedic surgery/Nephrology upon discharge Admission and Anticipated Discharge Date Admission Date: December 18, 2021 Subjective Patient is seen and examined at bedside States having some back pain No other complaints Sodium levels improving Review of Systems Review of Systems: All systems reviewed & are unremarkable except as noted in Subjective Physical Exam Physical Exam: Physical Exam: Vitals signs as noted above General Appearance:Moderately built and nourished, no distress Head: normocephalic, Atraumatic Eyes: normal inspection, EOMI Neck: supple, Trachea midline Respiratory/Chest: Decreased breath sounds, CTA, No accessory muscle use Cardiovascular: S1, S2, No murmur Abdomen/GI:Soft, Non tender, Bowel sounds present Back:Surgical malina Extremities/Musculoskeletal:normal inspection, no edema Neurologic/Psych:AAOX3, grossly no focal neurological deficits Skin: normal color, warm Results & Data Results & Data ([facility]) Vital Signs (Past 12 Hours) Vital Signs Temp Pulse Pulse Resp BP Pulse Ox 12/28/21 15:00 36.6 C 55 L 16 113/38 L 95 12/28/21 11:40 36.4 C L 53 L 15 126/64 96 12/28/21 08:15 36.4 C L 54 L 16 114/50 L 96 12/28/21 08:00 50 L Laboratory Results [facility] 12/28/21 05:43 Sodium 130 L Potassium 3.8 Chloride 95 L Carbon Dioxide 29 BUN 31 H Creatinine 0.66 Glucose 88 Calcium 8.7
[2021-12-28] MEDS: PRAVASTATIN SOD 40 MG TAB NG SCH (19:46)
[2021-12-29] MEDS: PANTOprazole 40 MG TAB PO SCH (05:29)
[2021-12-29 07:22] LABS: BUN Creatinine Ratio 31.9 (10-20); Calcium 9.1 mg/dl (8.5-10.1); Creatinine Clr Calc Pharmacy 58.4 ml/min; Est GFR (African American) 94.9 ml/min; Est GFR (Non-African American) 81.9 ml/min; Potassium 3.8 mmol/L (3.5-5.1)
[2021-12-29] MEDS: INSULIN ASPART PER UNIT SC SCH ×2 (08:04→12:37)
[2021-12-29] MEDS: INSULIN GLARGINE SOLOSTAR 100 UNITS/ML 3 ML PEN SC SCH (08:05)
[2021-12-29] MEDS: AMIODARONE 200 MG TAB PO SCH (08:06)
[2021-12-29] MEDS: SODIUM CHLORIDE 1 GM TABLET PO SCH (08:06)
[2021-12-29] MEDS: POTASSIUM CHLORIDE CRTAB 20 MEQ TABCR PO SCH (08:06)
[2021-12-29] MEDS: GABAPENTIN 300 MG CAP PO SCH (08:06)
[2021-12-29] MEDS: LOSARTAN POTASSIUM 50 MG TAB PO SCH (08:06)
[2021-12-29] MEDS: DOCUSATE SODIUM 100 MG CAP PO SCH (08:07)
[2021-12-29] MEDS: FUROSEMIDE 40 MG TAB PO SCH (08:07)
[2021-12-29] MEDS: DULoxetine HCL 60 MG CAP PO SCH (08:07)
[2021-12-29] MEDS: FLUTICASONE/VILANTEROL 200/25MCG 14 PUFFS/INHALER INH SCH (08:08)
[2021-12-29] MEDS: ENOXAPARIN INJ 40 MG/0.4 ML SYR SQ SCH (08:08)
[2021-12-29] MEDS: oxyCODONE HCL IR 5 MG TAB (IMMEDIATE RELEASE) PO PRN (08:09)
[2021-12-29] MEDS: METOPROLOL TARTRATE 25 MG TAB PO SCH (08:44)
[2021-12-29] MEDS: UREA (UREA-NA) 15 GM PACK PO SCH (11:31)
--- NOTE | 2021-12-29 12:23 | Hospitalist Progress Note ---
Date of Service December 29, 2021 Assessment & Plan (1) Acute hypoxemic respiratory failure: Plan: Acute hypoxic respiratory failure Possible pneumonia/Aspiration Asthma/COPD Exacerbation --CTA:Exam significantly compromised by respiratory motion. No pulmonary emboli identified although segmental and subsegmental pulmonary arteries suboptimally assessed. Extensive airspace opacities throughout the lungs. The findings favor an infectious process. Aspiration pneumonitis is within the differential but considered less likely. Satisfactory positioning of the endotracheal and nasogastric tubes. --Bio fire and COVID-19 negative S/P Extubation 12/18/21 Respiratory failure resolved Completed cefepime, and doxycycline for 7-day course Saturating well on room air Possible Sepsis Sources: Pulmonary as above Urine culture negative Blood cultures negative Leukocytosis likely steroids contributed WBC trended down Acute on chronic hyponatremia likely SIADH with poor solute intake Sodium 122>>130>131 Appreciate nephrology input Continue salt tablet 1 g twice daily Continue fluid restriction 1200ml per day Continue Urea-Na 15mg twice daily while hospitalized Increase protein intake Continue p.o. Lasix 40 mg BID Needs follow-up with nephrology upon discharge Paroxysmal atrial tachycardia NSVT New left bundle branch block Elevated troponin H/O PSVT, PVD Moderate aortic stenosis Cardiology on board Continue metoprolol, amiodarone Monitor electrolytes Elevated Troponin Likely Type II [place] due to demand ischemia Troponin levels trended down H/O Recent back surgery Postop anemia Gabapentin resumed at lower dose Hold baclofen for now Needs follow-up with orthopedic surgery upon discharge Monitor CBC Hypertension Continue current medications Hyperlipidemia on statin DM II Hold p.o. meds HbA1C:6.3 last November 25, 2021 Continue insulin sliding scale DVT Px: Lovenox SQ Code Status Full code Disposition Rehab today Needs follow up with Orthopedic surgery/Nephrology upon discharge Admission and Anticipated Discharge Date Admission Date: December 18, 2021 Subjective Patient is seen and examined at bedside States feeling well today No new complaints Sodium improved to 131 Discussed with nephrology today Plan to be discharged to rehab facility today Denies any chest pain, shortness of breath, dizziness, nausea, abdominal pain Offers no other complaints Review of Systems Review of Systems: All systems reviewed & are unremarkable except as noted in Subjective Physical Exam Physical Exam: Physical Exam: Vitals signs as noted above General Appearance:Moderately built and nourished, no distress Head: normocephalic, Atraumatic Eyes: normal inspection, EOMI Neck: supple, Trachea midline Respiratory/Chest: Decreased breath sounds, CTA, No accessory muscle use Cardiovascular: S1, S2, No murmur Abdomen/GI:Soft, Non tender, Bowel sounds present Back:Surgical malina Extremities/Musculoskeletal:normal inspection, no edema Neurologic/Psych:AAOX3, grossly no focal neurological deficits Skin: normal color, warm Results & Data Results & Data ([facility]) Vital Signs (Past 12 Hours) Vital Signs Temp Pulse Pulse Resp BP Pulse Ox 12/29/21 11:02 36.8 C 59 L 18 114/55 L 94 12/29/21 08:00 57 L 12/29/21 06:59 36.8 C 58 L 18 138/57 L 93 12/29/21 03:58 36.8 C 59 L 18 127/50 L 98 Laboratory Results [facility] 12/29/21 06:37 Sodium 131 L Potassium 3.8 Chloride 94 L Carbon Dioxide 31 BUN 23 Creatinine 0.72 Glucose 113 H Calcium 9.1
--- NOTE | 2021-12-29 12:34 | Discharge Summary ---
Date of Service December 29, 2021 Admission HPI Per Admitting Provider History obtained from ER provider and records. Unable to obtain history from patient secondary to intubated state. Medical history significant for PSVT, PVD, moderate aortic stenosis (TTE 2019 ), hypertension, hyperlipidemia, DM2 on oral medications, chronic hyponatremia, GERD, anxiety/mood disorder, RLS, lumbar radiculopathy status post recent surgery. Last confinement [facility] under Orthopedics spine service from December 07 to 2021 for lumbar decompression surgery for lumbar radiculopathy. Patient subsequently discharged to [facility] facility. As per records, patient woke up in the middle of the night at rehab facility with severe respiratory distress. O2 sats noted to be 80s. Patient placed on CPAP. Later switched to BiPAP at the ER. Patient intubated at the ER for worsening respiratory distress and agitation. Medical History as above Surgical History : Lumbar decompression surgery, breast lesion excision, carpal tunnel surgery, laser trabeculoplasty, cataract surgery, BTL, cholecystectomy, tonsillectomy/adenoidectomy, sliding hernia repair Family History : Depression Personal/Social history : Non-smoker, occasional EtOH intake, retired bank employee Admission Exam Per Admitting Provider Physical Exam Physical Exam: GENERAL: Sedated, intubated, obese, no respiratory distress SKIN: Pallor, warm HEENT: Pale palpebral conjunctivae, no ptosis, dry buccal mucosa, ET in place NECK : Supple, short neck, no tenderness CHEST : Decreased breath sounds, scattered rhonchi, no tenderness HEART : Bradycardic, no obvious murmurs ABDOMEN: Some distention, nontender EXTREMITIES : Minimal LE swelling, no LE tenderness, no other conspicuous deformities noted NEUROLOGIC : Sedated , no facial asymmetry, gait and stance not assessed Principal Diagnosis Acute hypoxic respiratory failure Possible pneumonia/Aspiration Asthma/COPD Exacerbation Acute on chronic hyponatremia Paroxysmal atrial tachycardia NSVT LBBB Recent Spinal surgery Discharge Data Allergies Allergy/AdvReac Type Severity Reaction Status Date / Time amoxicillin Allergy Unknown HANDS Verified 07/19/16 06:36 ITCHING Iodinated Contrast Media Allergy Unknown HIVES Verified 12/17/21 23:50 lisinopril Allergy Unknown COUGH Verified 12/17/21 23:50 sunflower oil Allergy Verified 12/19/21 10:22 sunflower seed Allergy Verified 12/19/21 10:22 SUNFLOWER SEEDS Allergy Unknown TONGUE Uncoded 12/17/21 23:50 SWELLING Consultations 12/18/21 01:05 ED Decision to Admit Stat 12/18/21 03:29 Consult Supervisor Poultry Processing Routine 12/18/21 13:42 Consult Cardiology Routine 12/19/21 08:22 Consult Nephrology Routine Ordered Studies 12/18/21 00:10 CT angio chest PE protocol Urgent Hospital Course (1) Acute hypoxemic respiratory failure: Acute hypoxic respiratory failure Possible pneumonia/Aspiration Asthma/COPD Exacerbation --CTA:Exam significantly compromised by respiratory motion. No pulmonary emboli identified although segmental and subsegmental pulmonary arteries suboptimally assessed. Extensive airspace opacities throughout the lungs. The findings favor an infectious process. Aspiration pneumonitis is within the differential but considered less likely. Satisfactory positioning of the endotracheal and nasogastric tubes. --Bio fire and COVID-19 negative S/P Extubation 12/18/21 Respiratory failure resolved Completed cefepime, and doxycycline for 7-day course Saturating well on room air Possible Sepsis Sources: Pulmonary as above Urine culture negative Blood cultures negative Leukocytosis likely steroids contributed WBC trended down Acute on chronic hyponatremia likely SIADH with poor solute intake Sodium 122>>130>131 Appreciate nephrology input Continue salt tablet 1 g twice daily Continue fluid restriction 1200ml per day Continue Urea-Na 15mg twice daily while hospitalized Increase protein intake Continue p.o. Lasix 40 mg BID Needs follow-up with nephrology upon discharge Paroxysmal atrial tachycardia NSVT New left bundle branch block Elevated troponin H/O PSVT, PVD Moderate aortic stenosis Cardiology on board Continue metoprolol, amiodarone Monitor electrolytes Elevated Troponin Likely Type II IL due to demand ischemia Troponin levels trended down H/O Recent back surgery Postop anemia Gabapentin resumed at lower dose Hold baclofen for now Needs follow-up with orthopedic surgery upon discharge Monitor CBC Hypertension Continue current medications Hyperlipidemia on statin DM II Hold p.o. meds HbA1C:6.3 last November 25, 2021 Continue insulin sliding scale DVT Px: Lovenox SQ Code Status Full code Disposition Rehab today Needs follow up with Orthopedic surgery/Nephrology upon discharge Total Time Total Time Spent Total Time Spent (In Minutes): 45 minutes Discharge Plan Discharge Items Patient Disposition: Transfer Inpatient Rehab Fac Reason For Visit: RESP FAILURE Discharge Diagnosis: Acute hypoxic respiratory failure Possible pneumonia/Aspiration Asthma/COPD Exacerbation Acute on chronic hyponatremia Paroxysmal atrial tachycardia NSVT LBBB Recent Spinal surgery Activity: Per Instructions section Exercise/Sports: Gradually increase as tolerated Non-emergency contact: Primary Care Provider, Surgeon and Tax Accountant Call non-emergency contact if: you have any medication questions, your symptoms worsen, your pain is concerning for you and you have a fever Follow-up/Referrals: [facility] [Primary Care Provider] - Diet: Carb Consistent or DM2 Fluids: 1200ml (5 cups) Diet Texture: Easy to Chew Addtl Attending Provider Instructions: Follow-up with your primary care physician in 1 week upon discharge from rehab facility Follow-up with your orthopedic Spine surgeon in 1 week as advised Follow-up with your auto tester in 2-3 weeks --Get Basic Metabolic Panel in 2 weeks and follow up with your Tax Accountant for monitoring your sodium levels Seek immediate medical attention if your symptoms reoccur or worsen Please take all medications as instructed on discharge list below. Please call if you have any questions or problems. You can reach a [facility] hospitalist on duty at [facility] 24 hours a day by calling [phone] Pending Studies at Discharge: No Stand-Alone Forms: My [facility] Skilled Items Patient informed of condition?: Yes DNR: No Discharge Level of Care: Acute rehab Communicable Disease: No Discharge Prognosis: Stable Lines: None Urinary Catheter: No Medications and DC Order Prescriptions: New potassium chloride 20 mEq Tablet,Er Particles/Crystals 20 meq PO BID Qty: 30 RF: 0 oxycodone 5 mg Tablet 5 mg PO Q6H PRNQty: 0 RF: 0 furosemide 40 mg Tablet 40 mg PO BID17 Qty: 0 RF: 0 sodium chloride 1 gram Tablet 1 g PO BID Qty: 0 RF: 0 metoprolol tartrate 25 mg Tablet 25 mg PO BID Qty: 0 RF: 0 gabapentin 300 mg Capsule 300 mg PO TID Qty: 0 RF: 0 Continued losartan 50 mg tablet 50 mg PO DAILY RF: 0 duloxetine 60 mg capsule,delayed release(DR/EC) 60 mg PO DAILY RF: 0 amiodarone 200 mg tablet 200 mg PO DAILY RF: 0 albuterol sulfate 90 mcg/actuation HFA aerosol inhaler 2 puff INHALATION Q6 PRN (Reason: Wheezing) RF: 0 metformin 500 mg tablet 500 mg PO QAM RF: 0 pravastatin 80 mg tablet 80 mg PO HS RF: 0 Breo Ellipta 200-25 mcg/dose blister with device 1 ea INHALATION DAILY RF: 0 nitroglycerin [Nitrostat] 0.4 mg Tablet, Sublingual 0.4 mg sublingual UD PRN (Reason: Chest Pain) RF: 0 acetaminophen 325 mg Tablet 325 mg PO Q4 PRN (Reason: pain 1-3) RF: 0 cyanocobalamin (vitamin B-12) [Vitamin B-12] 1,000 mcg Tablet 2,000 mcg PO DAILY RF: 0 pantoprazole 40 mg Tablet,Delayed Release (Dr/Ec) 40 mg PO DAILYBB RF: 0 docusate sodium [Colace] 100 mg Capsule 100 mg PO BID RF: 0 Discontinued gabapentin 800 mg tablet 800 mg PO TID RF: 0 metoprolol succinate 25 mg tablet extended release 24 hr 25 mg PO DAILY RF: 0 oxycodone 10 mg Tablet 10 mg PO Q6H PRN (Reason: pain 4-10) RF: 0 baclofen 5 mg Tablet 5 mg PO TID RF: 0 Discharge Orders: Discharge Order (Routine); Ordered 12/29/21 Ordered By: Shon Rowe Admission Data Admit Date/Time: 12/18/21 02:20 Attending Provider: Shon Rowe Admit Provider: Kenneth Felix Primary Care Provider: Marc Leslie Other Providers: [facility] ; Kenneth Felix ; Carlton Benoit ; Lester Goodwin ; Skylar Travis ; Shon Rowe
== END 2021-12-29 13:23 | DRG 871 ==
LOC: ED 23:00 → 1E 12-18 02:20 → SUATTDRO 12-18 02:20 → 1E 12-18 03:00 → 2E 12-19 12:53